=== PATIENT | male | born 1960 | race Caucasian/White ===

== ENCOUNTER 2020-01-18 08:21 | Emergency (ER) | payer OTHER, SELFPAY ==
[2020-01-18 08:32] VITALS: BP 156/76; PULSE 83; RESP 18; TEMP 36.9; O2SAT 100
--- NOTE | 2020-01-18 09:03 | ED.URI ---
HPI - URI/Sore Throat General Chief Complaint: Upper Respiratory Infection Stated Complaint: Congestion Time Seen by Provider: 01/18/20 09:03 Source: patient Mode of arrival: ambulatory Limitations: no limitations History of Present Illness HPI Narrative: 59-year-old male accompanied by spouse with complaints of sinus congestion, sinus pressure, cough, left eye swelling with redness and yellow drainage and itching also for the past 4 days with symptoms progressively increasing. Patient verbalizes history of chronic sinus problems and has had previous sinus surgery. Patient states that he has been taking Mucinex, Zytol, using visine to his eye and has been taking Ibuprofen and Tylenol for pain and feelings of fever and chills. Patient states that he has noted yellow sinus drainage and has had cough with expectoration of greenish mucous.Patient denies any shortness of breath or any wheezing with SAO2 100% on room air. MD elicited complaint: fever, cough, rhinorrhea, nasal congestion and sinus pain Pertinent past history: pneumonia, sinusitis and asthma Onset (ago): day(s) (4) Consistency: progressively worsening Severity: moderate Pain scale (0-10): 5 Description of mucous: yellow Able to tolerate fluids by mouth: Yes Exacerbating factors: exertion and supine positioning Relieving factors: nothing Associated symptoms: fever, chills, rhinorrhea, nasal congestion and cough Treatments prior to arrival: acetaminophen, ibuprofen and other (Zytol and Mucinex) Related Data Allergies Allergy/AdvReac Type Severity Reaction Status Date / Time No Known Allergies Allergy Verified 01/18/20 08:39 Review of Systems Review of Systems: Narrative: CONSTITUTIONAL:reports has felt feverish with chills, or sweats. EYES: Denies visual changes,positive for redness, or discharge swelling to upper eyelid with itching to his left eye. ENT:positiverhinorrhea, congestion, no sore throat, or otalgia. CARDIOVASCULAR: Denies chest pain, palpitations, or edema. RESPIRATORY: positive cough denies dyspnea. GASTROINTESTINAL: Denies abdominal pain, nausea, vomiting, or diarrhea. GENITOURINARY: Denies dysuria or hematuria. SKIN: Denies rash or itching. MUSCULOSKELETAL:History of chronic back pain, joint pain, or myalgia. NEUROLOGIC: Denies headache, numbness, or weakness. PSYCHIATRIC: Denies anxiety or depression. All systems reviewed & are unremarkable except as noted in HPI and below PMFSH Past Medical History Medical History (Updated 01/21/20 @ 16:16 by Kristine Correa NP) Asymmetrical hearing loss Chronic back pain Colon polyp Hypertension Pneumonia Unspecified asthma, uncomplicated Surgical History Surgical History (Updated 01/21/20 @ 16:07 by Kristine Correa NP) H/O sinus surgery History of appendectomy Hx of cholecystectomy Previous back surgery Family History Family History Mother Family history of diabetes mellitus in first degree relative Family history of coronary artery disease Social History Social History (Updated 01/18/20 @ 09:25 by Kristine Correa NP) Smoking status: Never smoker Alcohol intake: current Substance use type: painkillers Living arrangements: with family Gender identity (if verbalized by the patient): Male Comments At time of signature, agree with nursing past medical, social history. There is no relevant family history pertinent to the presenting complaint Exam Narrative: Exam Narrative: GENERAL: Well-appearing, well-nourished, and in no acute distress. HEAD: Normocephalic, atraumatic. EYES: PERRLA and EOMI. left eye conjunctiva red with swelling to left upper eylid, yellowish drainage from eye with crusting to lashes noted in am, no acute viual changes ENT: Nares red, edematous with yellowish rhinorrhea no epistaxis. Mucous membranes moist.TM's normal with good light reflex, throat mild redness with no lesion or tonsil swelling, post nasal
== END 2020-01-18 09:25 | disposition home or self-care (01) ==
PROVIDERS: Emergency Provider Registered Nurse; PCP Family Medicine
DX: J00 Acute nasopharyngitis [common cold] (principal); J01.90 Acute sinusitis, unspecified; H10.9 Unspecified conjunctivitis; I10 Essential (primary) hypertension; J45.909 Unspecified asthma, uncomplicated
CPT/HCPCS: 99213; G0463

== ENCOUNTER 2020-02-15 15:00 | Outpatient (CLI) | payer OTHER, SELFPAY ==
--- NOTE | ~2020-02-15 | XR_ITS ---
EXAMINATION: XR chest 2V DATE: 02/15/2020 15:22 INDICATION: Cough, history of asthma TECHNIQUE: PA and lateral views of the chest are obtained. COMPARISON: 03/05/2019 FINDINGS: The lungs are free of acute opacities. There is no pleural effusion or pneumothorax. The ca rdiomediastinal silhouette is normal. There is mild thoracic spondylosis. Surgical clips in the right upper quadrant are likely from prior cholecystectomy. IMPRESSION: 1. No acute cardiopulmonary abnormality. Reviewed, dictated and finalized at location A.
== END 2020-02-15 15:01 | disposition home or self-care (01) ==
LOC: ANHIMG 15:11
PROVIDERS: PCP Family Medicine; Visit Provider Physician Assistant
DX: R05 Cough (principal)
CPT/HCPCS: 71046

== ENCOUNTER 2020-05-22 00:28 | Outpatient (CLI) | payer OTHER, SELFPAY ==
[2020-05-22 18:55] LABS: SARS-CoV-2 RNA PCR Negative
== END 2020-05-22 00:29 | disposition home or self-care (01) ==
LOC: ANHCOVIDDT 00:28
PROVIDERS: PCP Family Medicine; Visit Provider Internal Medicine Cardiovascular Disease
DX: Z01.818 Encounter for other preprocedural examination (principal); Z11.59 Encounter for screening for other viral diseases
CPT/HCPCS: 87635; C9803; U0003

== ENCOUNTER 2020-05-24 05:46 | Day surgery (SDC) | payer OTHER, SELFPAY ==
[2020-05-24] VITALS (8 sets, daily range): BP systolic 110–151; BP diastolic 72–88; PULSE 56–82; RESP 12–18; TEMP 36.1–37; O2SAT 98–100; BMI 32.6
--- NOTE | 2020-05-24 09:15 | SUR.PREOP ---
ARRIVES AMBULATORY FROM OP SURGERY REGISTRATION TO [facility] FOR SCHEDULED LHC W/ DR. MORENO. A&OX 4, DENIES CP OR SOB ON ARRIVAL. ORIENTED TO ROOM, PLAN OF CARE, PROCEDURE. QUESTIONS ANSWERED. VS OBTAINED, IV STARTED, LABS SENT, CONSENT SIGNED, SKIN PREP COMPLETED, PULSES MARKED. WILL MONITOR.
[2020-05-24 10:20] LABS: Basophils Absolute Auto 0.1 K/mm3 (0.0-0.1); Basophils Percent Auto 1.1 % (0.2-1.2); Eosinophils Absolute Auto 0.2 K/mm3 (0-0.3); Eosinophils Percent Auto 2.4 % (0-4.4); Hematocrit 43.8 % (42.0-52.0); Hemoglobin 15.2 g/dL (14.0-18.0); Immature Granulocyte Absolute 0.04 K/mm3 (0.00-0.031); Immature Granulocyte Percent A 0.5 % (0-0.5); Lymphocytes Absolute Auto 1.84 K/mm3 (0.9-3.2); Lymphocytes Percent Auto 23.4 % (18.3-44.2); Mean Corpuscular HGB Conc 34.7 g/dl (32-36); Mean Corpuscular Hemoglobin 29.7 pg (26-34); Mean Corpuscular Volume 85.5 fl (80-100); Mean Platelet Volume 9.8 fl (7.4-10.4); Monocytes Absolute Auto 0.5 K/mm3 (0.1-0.6); Monocytes Percent Auto 6.9 % (2.6-8.5); Neutrophils Absolute Auto 5.2 K/mm3 (1.3-6.7); Neutrophils Percent Auto 65.7 % (45.5-73.1); Platelet Count Result 181 k/mm3 (150-375); Red Blood Count 5.12 M/mm3 (4.6-6.20); Red Cell Distribution Width 12.3 % (11.5-14.5); White Blood Count 7.9 K/mm3 (4.5-10.0)
[2020-05-24 10:31] LABS: Prothrombin Time 12.7 Seconds (11.1-14.7)
[2020-05-24 10:32] LABS: Blood Urea Nitrogen 15 mg/dL (9-20); Carbon Dioxide 28 mmol/L (22-30); Chloride 105 mmol/L (98-107); Estimated Glomerular Filt Rate > 60; Glucose 102 mg/dL (75-110); Potassium 3.9 mmol/L (3.4-5.0); Sodium 133 mmol/L (137-145)
--- NOTE | 2020-05-24 12:11 | WPDHPUPDATE1 ---
History and Physical Update Update Date/Time: 05/24/20 12:11 History and Physical has been reviewed, including an updated exam of the patient. There are NO changes in the patient's condition. Risks, benefits, and alternatives have been discussed and questions answered. Patient agrees to proceed with procedure.
--- NOTE | 2020-05-24 12:11 | WPDMODSED ---
Moderate Sedation Note-Pt Data Patient Data Allergies Allergy/AdvReac Type Severity Reaction Status Date / Time No Known Allergies Allergy Verified 05/24/20 10:38 Home Medications Medication Instructions Recorded Confirmed Type fluticasone furoate 200 1 inhalation INHALATION DAILY 02/03/20 05/23/20 History mcg-vilanterol 25 mcg/dose inhalation powder fluticasone propionate 50 1 spray NASAL BID #15.8 ml 03/06/20 05/23/20 Rx mcg/actuation nasal spray,suspension tramadol 50 mg tablet 50 mg PO Q8H PRN #30 tablet 05/14/20 05/23/20 Rx atorvastatin 10 mg tablet 10 mg PO DAILY #30 tablet 05/21/20 05/24/20 Rx ascorbic acid (vitamin C) 500 mg PO QAM 05/23/20 05/23/20 History aspirin 325 mg PO DAILY 05/23/20 05/23/20 History cyanocobalamin (vitamin B-12) 500 mcg PO DAILY 05/23/20 05/23/20 History metoprolol tartrate 12.5 mg PO BID 05/23/20 05/24/20 History multivitamin 1 cap PO DAILY 05/23/20 05/23/20 History nitroglycerin 0.4 mg SUBLINGUAL Q5M PRN 05/23/20 05/23/20 History Current Medications: Active Medications Sodium Chloride (Normal Saline Iv) 500 mls @ 100 mls/hr IV CONT .Q5H HEIDI Sedation/Anesthesia: No previous sedation/anesthesia problems (including family history). [facility] Past Medical History Medical History Asymmetrical hearing loss Chest pain Chronic back pain Colon polyp Cough Hypertension PND (post-nasal drip) Pneumonia Unspecified asthma, uncomplicated Surgical History Surgical History H/O sinus surgery History of appendectomy Hx of cholecystectomy Previous back surgery Family History Family History Mother Family history of diabetes mellitus in first degree relative Family history of coronary artery disease Social History Social History Smoking status: Never smoker Alcohol intake: current Substance use type: painkillers Gender identity (if verbalized by the patient): Male Mod Sed Physical Exam Physical Exam Pre Procedural Exam: Normal: Appearance, Eyes, Ears, Nose, Neck, Throat, Airway, Lungs, Heart Size, Heart Rate, Heart Rhythm, Neuro Exam, Abdomen, Liver, Kidneys, Spleen, Breasts, Genitalia, Extremities and Skin Hours since solid foods: 8 Hours since liquid intake: 8 Internal Medicine - PN: Obj Da Vital Signs Vital Signs: Vital Signs - 24 hr 05/24/20 10:00 Temperature 36.1 C L Pulse Rate 70 Respiratory Rate 16 Blood Pressure 151/80 H Pulse Oximetry 99 Meds/Results Medications: Active Medications Generic Name Dose Route Start Last Admin Trade Name Freq PRN Reason Stop Dose Admin Sodium Chloride 500 mls @ 100 mls/hr 05/24/20 06:00 Normal Saline Iv IV CONT .Q5H HEIDI Labs CBC & Chem 7: 05/24/20 10:06 05/24/20 10:06 Labs: Laboratory Results - last 24 hr 05/24/20 05/24/20 05/24/20 10:06 10:06 10:06 WBC 7.9 RBC 5.12 Hgb 15.2 Hct 43.8 MCV 85.5 MCH 29.7 MCHC 34.7 RDW 12.3 Plt Count 181 MPV 9.8 Immature Gran % (Auto) 0.5 Neut % (Auto) 65.7 Lymph % (Auto) 23.4 Motley % (Auto) 6.9 Eos % (Auto) 2.4 Baso % (Auto) 1.1 Lymph # (Auto) 1.84 Motley # (Auto) 0.5 Eos # (Auto) 0.2 Baso # (Auto) 0.1 Abs Immat Gran (auto) 0.04 H Absolute Neuts (auto) 5.2 Absolute Nucleated RBC 0.0 Nucleated RBC % 0.0 PT 12.7 INR 1.0 Sodium 133 L Potassium 3.9 Chloride 105 Carbon Dioxide 28 BUN 15 Creatinine 0.90 Estim Creat Clear Calc Not Reportable Estimated GFR > 60 Glucose 102 Calcium 9.0 ASA Classification/Sedation ASA Classification/Sedation ASA Class: I Emergent: No Risks: Risks, benefits and alternatives explained and patient/family accepted plan for sedation. Patient re-evaluated immed
--- NOTE | 2020-05-24 12:11 | WPDCARDPROC ---
Cardiac Cath Procedure Note Date of procedure:: 05/24/20 Performing physician:: Andrew Gilbert MD date of service 05/24/2020. Indication:: abnormal stress test Brief clinical history:: this is 59-year-old patient past medical history of hyperlipidemia was evaluated by Dr. Heredia for exertional chest pain. Underwent stress test that shows inferior, apical wall ischemia. He was brought into the laboratory specialist to define the coronary anatomy. Procedure Procedure performed:: 1-Moderate sedation that started at 11:04 am and ended at 1208 pm using 4mg of Versed and 100mcg fentanyl. The registered nurse was Benji Flores. 2-Selective left and right coronary angiogram. 3-Left heart catheterization with measurement of LVEDP and measurement of gradient across aortic valve. 4- LV angiogram. 5- IVUS of distal left main into the circumflex artery. 6- IFR of left main coronary artery into the left circumflex artery proper. also IFR of proximal obtuse marginal lesion. 7-Right common femoral arterial angiogram. 8-Deployment of 6 Congolese Angio-Seal. Sedation/Medication given:: Moderate sedation. Access site:: Right common femoral artery. Estimated blood loss:: 10cc Procedure note:: After informed consent patient was brought in to laboratory specialist with the was draped and prepped in usual manner. Moderate sedation was given and the right groin was infiltrated using 1% lidocaine. Five Congolese sheath was obtained using micropuncture needle and the modified Seldinger technique. Selective left coronary angiogram was done using JL4 catheter with the tip of the catheter placed in the left main coronary artery. Selective right coronary angiogram was done using JR4 catheter with the tip of the catheter placed to the right coronary artery. After that 5 Congolese pigtail catheter was advanced across the aortic valve into the left ventricle with measurement of LVEDP and measurement of gradient across aortic valve. LV angiogram was done. then after that the right femoral sheath was exchanged for 6 Congolese sheath. Six Congolese guide catheter CLS 3.5 was advanced engaging the left main. Then after that coronary luge wire was advanced to distal obtuse marginal. then IVUS catheter was not to the proximal portion of the obtuse marginal and then pulled back through the distal left main was done with measurements. Subsequently lose wire was removed. After that we went with a pressure wire that was zeroed outside the body and then advanced to the aortic root with normalization of pressures. after that the pressure wire was advanced 1st into the left circumflex artery proper and assessment of the distal left main was done reading was 0.95. then the pressure wire was retrieved and advanced to the distal obtuse marginal and measurement of ifr was significant at 0.83 . then pressure wire was retrieved.Right common femoral arterial angiogram was done. deployment 6 Congolese Angio-Seal Findings:: 1- left coronary artery is a large artery that divides into large LAD, large circumflex artery. distal left main has haziness, calcification and a lesion of about 40-50% distally. 2- left anterior descending artery is a large artery . has ostial 90% with calcification. followed by proximal stenosis about 70% and then 100% occlusion in the mid segment. there is a collateral coming from the left circumflex artery and supplying that mid portion of the LAD. mid to distal LAD is not visualized and is totally occluded. 3- left circumflex artery is a large artery. has minimal irregularities. proximally gives large OM1 branch that has proximal 70-80%. 4- right coronary artery is large artery and dominant, has proximal 20%, mid 40-50% and distal 30%. 5- LVEDP was 10 mmhg and no gradient across aortic valve. 6- LV angiogram shows no wall motion abnormality and estimated ejection fraction 65%. 7- opening arterial pressure was 118/68 and closing pressure was 137/76. 8- intravascular ultrasound of the distal left main shows minimal lumina
== END 2020-05-24 16:30 | disposition home or self-care (01) ==
PROVIDERS: PCP Family Medicine; Visit Provider Internal Medicine Cardiovascular Disease
PROC: 4A023N7 Measurement of Cardiac Sampling and Pressure, Left Heart, Percutaneous Approach (ICD-10-PCS; CPT 93452; principal; 2020-05-24 10:30)
PROC: 4A033BC Measurement of Arterial Pressure, Coronary, Percutaneous Approach (ICD-10-PCS; CPT 93571; 2020-05-24 10:30)
PROC: 4A033BC Measurement of Arterial Pressure, Coronary, Percutaneous Approach (ICD-10-PCS; CPT 75580; 2020-05-24 10:30)
DX: I25.10 Atherosclerotic heart disease of native coronary artery without angina pectoris (principal); R94.39 Abnormal result of other cardiovascular function study; E78.5 Hyperlipidemia, unspecified; I10 Essential (primary) hypertension; J45.909 Unspecified asthma, uncomplicated; G47.33 Obstructive sleep apnea (adult) (pediatric); Z82.49 Family history of ischemic heart disease and other diseases of the circulatory system; Z79.82 Long term (current) use of aspirin
CPT/HCPCS: 36415; 80048; 85025; 85610; 92978; 93458; 93571; 93572; A9270; C1753; C1760; C1769; C1887; C1894; G0269; J0583; J1644; J2250; J3010; J7040

== ENCOUNTER 2020-11-14 16:30 | Outpatient (RCR) | payer OTHER, SELFPAY ==
[2020-08-24 08:52] VITALS: PULSE 60
[2020-08-24 08:56] VITALS: BP 158/68; PULSE 59; RESP 16; TEMP 35.9; O2SAT 100
== END 2020-11-14 19:30 | disposition home or self-care (01) ==
LOC: ANHCPREHAB 16:30
PROVIDERS: PCP Family Medicine; Visit Provider Internal Medicine Cardiovascular Disease
DX: Z95.1 Presence of aortocoronary bypass graft (principal)
CPT/HCPCS: 93798

== ENCOUNTER 2021-03-05 08:46 | Emergency (ER) | payer OTHER, SELFPAY ==
--- NOTE | ~2021-03-05 | XR_ITS ---
EXAMINATION: XR knee RT 3V EXAM DATE: 03/05/2021 10:08 INDICATION: Initial encounter following injury, with pain of the right knee. Twisting injury. TECHNIQUE: Three projections of the right knee. Comparison is made to prior examination from 09/23/20 19. FINDINGS: No evidence osteochondral defect or joint body in the right knee joint. There are no acut e fractures or dislocations identified. There is no subcutaneous gas. There is small joint effusion . There is mild primary osteoarthritis. Couple of medially located surgical clips could be saphenous venous harvest. IMPRESSION: 1. XR knee RT 3V exam without acute osseous findings. 2. Small joint effusion. Reviewed, dictated and finalized at location A.
[2021-03-05 09:07] VITALS: BP 129/71; PULSE 65; RESP 14; TEMP 36.3; O2SAT 100
--- NOTE | 2021-03-05 09:40 | ED.GENADULT ---
HPI - General Adult General Chief complaint: Extremity Injury, Lower Stated complaint: knee pain Time Seen by Provider: 03/05/21 08:59 Source: patient and family Mode of arrival: ambulatory Limitations: no limitations History of Present Illness HPI narrative: Patient is a 60-year-old male who presents with medial right knee pain that began yesterday patient was sitting on the couch when he attempted to get up felt a pop in the knee is since had aching pain to the medial anterior aspect of the right knee denies similar occurrence in the past has appointment set up with his orthopedist presents in no distress denies other complaints Related Data Home Medications Medication Instructions Recorded Confirmed fluticasone furoate 200 1 inhalation INHALATION DAILY 02/03/20 08/24/20 mcg-vilanterol 25 mcg/dose inhalation powder ascorbic acid (vitamin C) 500 mg PO QAM 05/23/20 08/24/20 multivitamin 1 cap PO DAILY 05/23/20 08/24/20 nitroglycerin 0.4 mg SUBLINGUAL Q5M PRN 05/23/20 05/23/20 aspirin [Aspirin Childrens] 08/24/20 atorvastatin 40 mg PO HS 08/24/20 08/24/20 clopidogrel 75 mg PO DAILY 08/24/20 08/24/20 metoprolol tartrate 50 mg PO Q12H 08/24/20 08/24/20 lisinopril 10 mg tablet 10 mg PO DAILY 10/09/20 celecoxib mg 03/05/21 Allergies Allergy/AdvReac Type Severity Reaction Status Date / Time No Known Allergies Allergy Verified 10/09/20 13:07 Review of Systems Review of Systems: Narrative: CONSTITUTIONAL: Denies fever, chills, or sweats. EYES: Denies redness, or discharge. ENT: Denies rhinorrhea, congestion RESPIRATORY: Denies cough or dyspnea. SKIN: Denies bruising or swelling MUSCULOSKELETAL: Positive for right medial knee pain NEUROLOGIC: Denies numbness, or weakness. All systems reviewed & are unremarkable except as noted in HPI and below PMFSH Past Medical History Medical History Asymmetrical hearing loss CAD (coronary artery disease) Chest pain Chronic back pain Colon polyp Cough Hypertension PND (post-nasal drip) Pneumonia Unspecified asthma, uncomplicated Surgical History Surgical History H/O sinus surgery History of appendectomy Hx of cholecystectomy Previous back surgery S/P CABG x 2 Family History Family History Mother Family history of diabetes mellitus in first degree relative Family history of coronary artery disease Hypertension Father Colon cancer Social History Social History Smoking status: Never smoker 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 HEAD: Normocephalic, atraumatic. EYES: PERRLA and EOMI. ENT: Nares clear, no rhinorrhea or epistaxis. Mucous membranes moist. EXTREMITIES: Tenderness of the medial anterior aspect of the right knee no deformity noted SKIN: Warm, dry, no rash. NEURO: No focal deficits. Alert and oriented x3. Cranial nerves II through XII grossly intact. Neurovascularly intact. Capillary refill less than 2-second PSYCH: Normal mood and affect. Course Course Emergency Course: Patient in the room no distress will follow with orthopedic surgery felt appropriate for discharge home made aware of findings afebrile nontoxic-appearing no distress Vital Signs Vital signs: Vital Signs Temperature 97.4 F L 03/05/21 09:07 Pulse Rate 65 03/05/21 09:07 Respiratory Rate 14 03/05/21 09:07 Blood Pressure 129/71 03/05/21 09:07 Pulse Oximetry 100 03/05/21 09:07 Temperature 97.4 F L 03/05/21 09:07 Pulse Rate 65 03/05/21 09:07 Respiratory Rate 14 03/05/21 0
[2021-03-05 11:07] VITALS: BP 125/75; PULSE 54; RESP 14; O2SAT 100
== END 2021-03-05 11:10 | disposition home or self-care (01) ==
PROVIDERS: Emergency Provider Emergency Medicine; PCP Family Medicine
DX: M25.561 Pain in right knee (principal); I25.10 Atherosclerotic heart disease of native coronary artery without angina pectoris; I10 Essential (primary) hypertension; J45.909 Unspecified asthma, uncomplicated
CPT/HCPCS: 73562; 99283

== ENCOUNTER 2021-04-02 10:08 | Outpatient (CLI) | payer OTHER, SELFPAY ==
--- NOTE | 2021-04-02 | ECG_ITS ---
Measurements Intervals [place] Rate: 63 P: 58 UT: 166 QRS: -21 QRSD: 100 T: 23 QT: 418 QTc: 431 Interpretive Statements SINUS RHYTHM BORDERLINE R WAVE PROGRESSION, ANTERIOR LEADS INFERIOR INFARCT, AGE INDETERMINATE ABNORMAL ECG Electronically Signed On 04-02-2021 11:07:02 CDT by Richard Scott D.O.
[2021-04-02 10:47] LABS: Anion Gap 6 mmol/L (8-16); Blood Urea Nitrogen 12 mg/dL (9-20); Calcium 9.2 mg/dL (8.4-10.2); Carbon Dioxide 30 mmol/L (22-30); Chloride 105 mmol/L (98-107); Estimated Glomerular Filt Rate > 60; Glucose 102 mg/dL (75-110); Potassium 4.2 mmol/L (3.4-5.0); Sodium 141 mmol/L (137-145)
== END 2021-04-02 10:09 | disposition home or self-care (01) ==
PROVIDERS: PCP Family Medicine; Visit Provider Orthopaedic Surgery
DX: Z01.818 Encounter for other preprocedural examination (principal); R94.31 Abnormal electrocardiogram [ECG] [EKG]
CPT/HCPCS: 36415; 80048; 93005

== ENCOUNTER 2021-10-22 11:44 | Emergency (ER) | payer OTHER, SELFPAY ==
--- NOTE | ~2021-10-22 | CT_ITS ---
EXAMINATION: CT abdomen pelvis w con DATE: 10/22/2021 12:50 INDICATION: Low abdominal pain. Diarrhea. Fever. TECHNIQUE: Computed tomography (CT) of the abdomen and pelvis was performed with 100 mL Omnipaque 350 intravenous contrast. Automated exposure control and iterative reconstruction technique were employe d. The dose-length product was 1072.70 mGy-cm. COMPARISON: CT abdomen and pelvis 02/24/2013 FINDINGS: The visualized portions of the lung bases demonstrate patchy groundglass and airspace opaci ties with volume loss bilaterally. No pleural effusion. The heart size is normal. There are coronary artery calcifications. No pericardial effusion. There are changes of coronary artery bypass grafting. The liver and spleen are normal. There are changes of cholecystectomy. The pancreas, adrenal glands, and right kidney are normal. There is a 2.2 cm hemorrhagic cyst in left kidney. There is an umbilica l hernia containing fat. There is liquid stool in the colon suggestive of diarrhea. The appendix is n ot visualized. There is chronic fat stranding in the small bowel mesentery. There is prominent fat in the right inguinal canal that may be a hernia. There is a left inguinal hernia containing fat. There are no pathologically enlarged lymph nodes. There is no free intraperitoneal fluid. There is moderat e thoracic and lumbar spondylosis. IMPRESSION: 1. Diffuse lung disease suspicious for atypical pneumonia such as COVID-19 pneumonia. 2. Umbilical hernia containing fat. 3. Left inguinal hernia containing fat. Prominent fat in right inguinal canal that may be a hernia. 4. Widespread fat stranding at the root of the small bowel mesentery again seen. The differential rafael gnosis includes mesenteric panniculitis and edema. Reviewed, dictated and finalized at location B. [employer] IMPRESSION: 1. Diffuse lung disease suspicious for atypical pneumonia such as COVID-19 pneu monia. 2. Umbilical hernia containing fat. 3. Left inguinal hernia containing fat. Prominent fat in right inguinal canal t hat may be a hernia. 4. Widespread fat stranding at the root of the small bowel mesentery again seen . The differential diagnosis includes mesenteric panniculitis and edema.
[2021-10-22 11:50] VITALS: BP 129/84; PULSE 90; RESP 23; TEMP 36.8; O2SAT 98
--- NOTE | 2021-10-22 12:02 | ED.ABDPAIN ---
HPI - Abdominal Pain General Chief Complaint: Abdominal Pain Stated Complaint: I got a problem down in lower abd Time Seen by Provider: 10/22/21 12:01 Source: patient Mode of arrival: ambulatory Limitations: no limitations History of Present Illness HPI narrative: Patient is a 61-year-old male complaining of left lower abdominal pain I think it is my hernia , intermittent, started few months ago but worse the past 2 weeks when he started coughing. Patient states that he just got over feeling sick described as cough, body aches, and diarrhea 2 weeks ago and is now better. Patient denies any chest pain, shortness of breath, nausea, vomiting, diarrhea, urinary symptoms, fever or chills. Pain scale (0-10): 6 Quality: dull Radiation: none Migration to: no migration Related Data Home Medications Medication Instructions Recorded Confirmed fluticasone furoate 200 1 inhalation INHALATION DAILY 02/03/20 07/01/21 mcg-vilanterol 25 mcg/dose inhalation powder ascorbic acid (vitamin C) 500 mg PO QAM 05/23/20 07/01/21 multivitamin 1 cap PO DAILY 05/23/20 07/01/21 nitroglycerin 0.4 mg SUBLINGUAL Q5M PRN 05/23/20 07/01/21 aspirin [Aspirin Childrens] 08/24/20 07/01/21 atorvastatin 40 mg PO HS 08/24/20 07/01/21 clopidogrel 75 mg PO DAILY 08/24/20 07/01/21 metoprolol tartrate 50 mg PO Q12H 08/24/20 07/01/21 lisinopril 10 mg tablet 10 mg PO DAILY 10/09/20 07/01/21 celecoxib mg 03/05/21 07/01/21 Allergies Allergy/AdvReac Type Severity Reaction Status Date / Time No Known Allergies Allergy Verified 04/30/21 15:05 Review of Systems Review of Systems: All systems reviewed & are unremarkable except as noted in HPI and below Constitutional: Constitutional: Denies body ache(s), Denies chills, Denies excessive sweating, Denies fatigue, Denies fever(s), Denies headache(s), Denies lethargy, Denies malaise, Denies weakness and Denies weight loss Eyes: Eyes: Denies blurry vision, Denies change in vision and Denies loss of vision ENT: Denies dizziness, Denies ear discharge, Denies headache(s), Denies lip swelling, Denies epistaxis, Denies nasal congestion, Denies neck pain, Denies throat swelling and Denies tongue swelling Cardiovascular: Cardiovascular: Denies chest pain, Denies chest pain at rest, Denies chest pain with activity, Denies diaphoresis, Denies rapid heart rate, Denies edema, Denies irregular heart rhythm, Denies lightheadedness, Denies palpitations, Denies dyspnea and Denies dyspnea on exertion Respiratory: Respiratory: Denies chest congestion, Denies cough, Denies hemoptysis, Denies dyspnea and Denies dyspnea on exertion Gastrointestinal: Gastrointestinal: Denies melena, Denies hematochezia, Denies diarrhea, Denies nausea, Denies vomiting and Denies hematemesis Musculoskeletal: Musculoskeletal: Denies abnormal gait, Denies deformity, Denies joint swelling, Denies limited range of motion, Denies neck pain and Denies numbness Neurologic: Denies Abnormal speech present, Denies abnormal gait, Denies confusion, Denies dizziness, Denies headache(s), Denies focal weakness, Denies loss of vision, Denies numbness, Denies Other visual disturbances, Denies Sensory deficit (Neuro) and Denies weakness Psychiatric: Psychiatric: Denies confusion, Denies depression, Denies auditory hallucinations, Denies homicidal ideation and Denies suicidal ideation Endocrine: Endocrine: Denies cold intolerance, Denies excessive sweating, Denies fatigue, Denies heat intolerance and Denies palpitations Hematologic/Lymphatic: Hematologic/Lymphatic: Denies easy bleeding and Denies easy bruising Allergic/Immunologic: Allergic/Immunologic: Denies lip swelling, Denies throat swelling and Denies tongue swelling PMFSH Past Medical History Medical History Asymmetrical hearing loss CAD (coronary artery disease) Chest pain Chronic back pain Colon polyp Cough Hypertension PND (post-nasal drip) Pneumonia Unspecifie
[2021-10-22 12:09] LABS: Basophils Percent Auto 0.3 % (0.2-1.2); Eosinophils Percent Auto 0.2 % (0-4.4); Hematocrit 46.9 % (42.0-52.0); Hemoglobin 16.5 g/dL (14.0-18.0); Immature Granulocyte Absolute 0.13 K/mm3 (0.00-0.031); Lymphocytes Absolute Auto 1.72 K/mm3 (0.9-3.2); Lymphocytes Percent Auto 13.1 % (18.3-44.2); Mean Corpuscular HGB Conc 35.2 g/dl (32-36); Mean Corpuscular Hemoglobin 29.5 pg (26-34); Mean Corpuscular Volume 83.9 fl (80-100); Mean Platelet Volume 9.7 fl (7.4-10.4); Monocytes Absolute Auto 1.9 K/mm3 (0.1-0.6); Monocytes Percent Auto 14.6 % (2.6-8.5); Neutrophils Absolute Auto 9.3 K/mm3 (1.3-6.7); Neutrophils Percent Auto 70.8 % (45.5-73.1); Platelet Count Result 310 k/mm3 (150-375); Red Blood Count 5.59 M/mm3 (4.6-6.20); Red Cell Distribution Width 12.1 % (11.5-14.5); White Blood Count 13.1 K/mm3 (4.5-10.0)
[2021-10-22 12:16] LABS: Alanine Aminotransferase 72 U/L (4-50); Albumin Level 4.3 g/dL (3.5-5.1); Alkaline Phosphatase 74 U/L (38-126); Anion Gap 12 mmol/L (8-16); Aspartate Amino Transferase 57 U/L (17-59); Bilirubin,Total 0.9 mg/dL (0.2-1.3); Blood Urea Nitrogen 20 mg/dL (9-20); Carbon Dioxide 29 mmol/L (22-30); Chloride 88 mmol/L (98-107); Estimated CRCL calculation 82 ml/min; Estimated Glomerular Filt Rate > 60; Glucose 116 mg/dL (65-110); Lipase 106 U/L (23-300); Sodium 129 mmol/L (137-145)
[2021-10-22] MEDS: SODIUM CHLORIDE 0.9% IV 1,000 ML 999 ML IV CONT (12:16)
--- NOTE | 2021-10-22 12:28 | PC.NURSE ---
Patient attempting to provide urine specimen at this time.
[2021-10-22] MEDS: POTASSIUM CHLORIDE 20 MEQ TABLET 40 MEQ PO (13:45)
[2021-10-22 14:08] LABS: Add Urine Microscopic? NO; Appearance Urine Clear (Clear); Bilirubin Urine Negative (Negative); Blood Urine Negative (Negative); Color Urine Yellow (Yellow); Glucose Urine UA Negative (Negative); Ketones Urine Negative (Negative); Leukocyte Esterase Ur Negative LEU/UL (Negative); Nitrate Urine Negative (Negative); Protein Urine Negative (Negative); Specific Grav Ur 1.028 (1.001-1.035); Urobilinogen Urine Negative mg/dL (<2.0)
[2021-10-22] MEDS: KETOROLAC 30 MG/ML VIAL (*BKC) IV PUSH (15:07)
[2021-10-22] MEDS: HYDROcodone/acetaminophen (*CRX) 5-325 MG TABLET 1 TAB PO (15:08)
[2021-10-22 15:26] VITALS: BP 134/87; PULSE 99; RESP 20; O2SAT 98
== END 2021-10-22 15:15 | disposition home or self-care (01) ==
PROVIDERS: Physician Assistant; Emergency Provider Emergency Medicine; PCP Family Medicine
DX: K40.90 Unilateral inguinal hernia, without obstruction or gangrene, not specified as recurrent (principal); E87.6 Hypokalemia; E87.1 Hypo-osmolality and hyponatremia; I10 Essential (primary) hypertension; I25.10 Atherosclerotic heart disease of native coronary artery without angina pectoris; J45.909 Unspecified asthma, uncomplicated
CPT/HCPCS: 36415; 74177; 80053; 81003; 83690; 85025; 96361; 96374; 99284; A9270; J1885; J7030; Q9967

== ENCOUNTER 2021-11-20 09:22 | Outpatient (CLI) | payer OTHER, SELFPAY | END 2021-11-20 09:23 | disposition home or self-care (01) | PROVIDERS: PCP Family Medicine; Visit Provider Surgery | DX: Z01.812 Encounter for preprocedural laboratory examination (principal); K40.90 Unilateral inguinal hernia, without obstruction or gangrene, not specified as recurrent | CPT/HCPCS: 36415; 86850; 86900; 86901 ==

== ENCOUNTER 2021-11-26 00:27 | Day surgery (SDC) | payer OTHER, SELFPAY ==
[2021-11-19 09:11] VITALS: BMI 33.0
--- NOTE | 2021-11-19 09:33 | PC.NURSE ---
Report to the Outpatient Waiting Room, entrance under the green pavilion located off [facility], at time 6:00 on date 11/26/21. OR Time: 7:30. - You and your visitor will be asked a series of questions to screen for COVID 19 for your protection. - A mask is required within the hospital. - Only one visitor is allowed at this time. Patient visitors will be guided where to wait when not with patient. Preoperative COVID Testing Requirements: No COVID Test needed if: (proof is required; if not received patient will have Rapid Test prior to entry) - Patient has received COVID Vaccine at least 14 days prior to procedure date or - Patient has positive COVID test result within last 90 days of surgery date. COVID Test needed if above criteria is not met If not COVID vaccinated a COVID test must be conducted within 72 hours of surgery and patient is asked to isolate self from time of testing until procedure. You will go to the [facility] for your COVID testing. The [facility] is located at the corner of [address] [facility]. You will only be called if COVID results are positive and your surgeon may reschedule your elective surgery date. Patients may have clear liquids (water, carbonated beverages, clear teas, apple juice) until 3 hours prior to surgery (4:30) with a maximum of 20 ounces. - No food from midnight until time of surgery - Infants may have breast milk until 4 hours before surgery, formula 6 hours prior to surgery. - Children will be allowed to drink immediately following surgery. If applicable, please bring a bottle or sippy cup to assist with drinking. Juice, water, soda, and popsicles are readily available. For infants on formula, please bring formula the day of surgery. Pacifiers are allowed. Take the following medications with a SIP of water the morning of surgery: METOPROLOL, DULERA Medications to discontinue per physician: N/A Date to take last dose: N/A Please no make-up, nail vietnamese, hairspray, perfume, deodorant, or body powder the day of surgery. No jewelry (including any body piercings) or valuables the day of surgery, leave them at home. Please take a shower or bath the night before, or the morning of, surgery with an antibacterial soap. Wear comfortable, loose fitting clothing. HIBICLENS SHOWER - Jewelry must be removed prior to entering the operating room. Rings and piercings that are not removed may be cut off. - The hospital will not accept responsibility for valuables. - Please leave all valuables, including medications, at home the day of surgery. If you are going home after surgery, a licensed auto haulaway driver must drive you home. - NO public transportation without another adult. - We recommend that an adult stay with you for 24 hours following discharge. - We also recommend that you do not drive, make important decision, drink alcoholic beverages, or take any drugs that were not prescribed by your health care provider for at least 24 hours after your discharge time. Follow any additional instructions given to you from your surgeon. Telephone instructions given to JASPREET ODEN and asked if any additional questions and then verbalized understanding. Patient advised to call surgeon office or pre surgery nurse liaison [phone] if any additional questions.
[2021-11-26] VITALS (9 sets, daily range): BP systolic 104–142; BP diastolic 68–85; PULSE 62–96; RESP 16–20; TEMP 36.2–36.3; O2SAT 99–100
[2021-11-26] MEDS: LACTATED RINGERS 1,000 ML 30 ML IV CONT ×2 (06:45→09:28)
--- NOTE | 2021-11-26 06:48 | P.PNAN_ITS ---
Anes - Initial Pre Proc Eval Procedure: Operation Date: 11/26/21 07:30 Proposed Procedures p Robotic Assisted Left Inguinal Hernia Repair with Mesh - Agueda Cox MD Date/Time: 11/26/21 06:48 Surgeon: Agueda Cox MD Pre Op Diagnosis: left inguinal hernia Patient Data Age: 61 Gender: M Height: 1.75 m Weight: 101.6 kg Allergies Allergy/AdvReac Type Severity Reaction Status Date / Time No Known Allergies Allergy Verified 11/19/21 09:08 Home Medications Medication Instructions Recorded Confirmed Type aspirin [Aspirin Childrens] 81 mg PO DAILY 08/24/20 11/19/21 History atorvastatin 40 mg PO HS 08/24/20 11/19/21 History lisinopril 10 mg tablet 10 mg PO DAILY 10/09/20 11/19/21 History metoprolol tartrate 50 mg tablet 50 mg PO BID 11/05/21 11/19/21 History mometasone-formoterol HFA 200 2 puff INHALATION BID 11/05/21 11/19/21 History mcg-5 mcg/actuation aerosol inhaler Patient hx anesthesia problems: none Family hx anesthesia problems: none Results Review: All pre-operative results and documents have been reviewed as part of the pre-operative evaluation. [facility] Past Medical History Medical History Arthritis Asthma Asymmetrical hearing loss CAD (coronary artery disease) Chest pain Chronic back pain Colon polyp Cough Hypertension PND (post-nasal drip) Pneumonia Unspecified asthma, uncomplicated Surgical History Surgical History H/O sinus surgery History of appendectomy Hx of cholecystectomy Previous back surgery S/P CABG x 2 Family History Family History Mother Family history of diabetes mellitus in first degree relative Family history of coronary artery disease Hypertension Father Colon cancer Heart disease Social History Social History Smoking status: Never smoker 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: 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, 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) Alcohol intake: current Alcohol use details: A SHOT OF WHISKEY ON WEEKENDS Substance use: current Substance use type: marijuana Other substance usage details: KENYON 11/11/21 Living arrangements: with family Gender identity (if verbalized by the patient): Male Sexual Orientation (if Verbalized by the Patient): Straight or Heterosexual Spiritual care concerns: No Anes - Eval Final PreProcedure Day of Procedure 11/26/21 06:48 Patient weight: obese Heart: regular rate and rhythm Lungs: clear to auscultation Airway: Mallampati scale class II Neurological: alert and oriented Last oral intake: >/= 8 hours ASA classification: III Emergent: no Anesthetic plan: proceed Anesthesia type and monitoring: general GIVS and standard monitoring Results Review: All pre-operative results and documents have been reviewed as part of the pre-operative evaluation. Informed Consent: The patient's anesthetic plan and its attendant risks and benefits were discussed with the patient/family/POA. Questions were solicited and answers provided to the satisfaction of the patient/family/POA.
[2021-11-26] MEDS: ACETAMINOPHEN 500 MG TABLET 1000 MG PO (07:05)
[2021-11-26] MEDS: KETOROLAC 15 MG/ML VIAL (*BKC) IV PUSH (07:06)
--- NOTE | 2021-11-26 07:24 | WPDHPUPDATE1 ---
History and Physical Update Update Date/Time: 11/26/21 07:24 History and Physical has been reviewed, including an updated exam of the patient. There are NO changes in the patient's condition. Risks, benefits, and alternatives have been discussed and questions answered. Patient agrees to proceed with procedure.
[2021-11-26] MEDS: ceFAZolin 2 GM/D5W 50 ML 2 GM/50 ML BAG IVPB (07:29)
[2021-11-26] MEDS: BUPIVACAINE/EPINEPHRINE 0.25% 10 ML VIAL 30 ML INFILTRATE (07:45)
--- NOTE | 2021-11-26 08:21 | SUR.OPER ---
patient voided immediately prior to arriving to OR in pre op/verified L Alonzo LOGAN
--- NOTE | 2021-11-26 08:48 | SUR.OPER ---
3D Max MID Anatomical Mesh to sterile field and placed via robot port. Mesh dipped in NS prior to insertion. exp [id number] lot [id number],
--- NOTE | 2021-11-26 09:45 | W.PM.PROC2 ---
Procedure Note - Detailed Date of Procedure 11/26/21 Pre-op Diagnosis incarcerated left inguinal hernia Post-op Diagnosis same Procedure Performed robotic assisted left inguinal hernia repair with mesh Surgeon Agueda Cox MD Anesthesia general Indications 61 y/o M c LIH incarcerated c preperitoneal fat and sigmoid colon Findings indirect left inguinal hernia Description of Procedure Patient was brought into the operating room and placed in the supine position. After adequate induction of general anesthesia, the patient was prepped and draped in normal sterile fashion. A time-out was then done to verify the patient's identity, as well as the procedure being performed. I began by making a 8 mm incision in the supraumbilical region, a Veress needle was then placed into the peritoneal cavity. CO2 gas was then insufflated and after adequate pneumoperitoneum was achieved, the Veress needle was removed. I then placed an 8 mm trocar through this incision. I then placed the endoscope through this trocar site and under direct visualization placed 2 further 8 mm ports in the right and left mid abdomen. The [employer] robot was then docked to the 3 trocar sites. I then scrubbed out and went to the robotic console. There was noted to be some adhesions in the lower midline and these were taken down sharply with cautery. Upon examining the pelvis, it was noted that the patient had a moderate sized left inguinal hernia. There was noted incarcerated preperitoneal fat and sigmoid colon. This was all reduced with gentle traction. The right side was examined and no hernia defect was noted. I began by making a preperitoneal flap approximately 6 cm superior to the defect. This flap was carried medially past the umbilical ligaments and laterally to the transversalis. It then began dissection of my medial compartment taking this down to the pubic tubercle. I then began the lateral dissection taking this down to the transversalis fascia. Once these compartments were achieved, I began dissection around the cord structures. A moderate sized indirect hernia was noted at this point. Using careful dissection, was able to reduce indirect hernia sac off the cord structures. Once this was adequately done, I went ahead and placed a large piece of 3D Max mesh into the abdominal cavity. The mesh was carefully positioned, centering the center of the mesh over the indirect defect. Once this was done, was very satisfied with our repair. Using 3-0 Vicryl sutures, I tacked the mesh medially to Sonny's ligament. Two lateral sutures were placed from the mesh to the transversalis fascia. I then closed the peritoneal flap with a running 2.0 V Lock suture. The abdomen was then desufflated, and all ports were removed. All incisions were then closed with the 4.0 monocryl suture. Dermabond was placed on each wound. The patient tolerated the procedure well, was extubated in the operating room postoperatively, and will now be transferred to the recovery room in stable condition. Implants large 3DMax mesh Estimated Blood Loss 10 Drains No Packing No Pathology none sent Complications No immediate complications Condition stable Disposition PACU
[2021-11-26] MEDS: fentaNYL CITRATE INJ (*CRX) 100 MCG/2 ML VIAL 25 MCG IV PUSH ×4 (09:59→10:13)
--- NOTE | 2021-11-26 10:11 | SUR.PHASEI ---
PT AWAKE AND ALERT. VERY TALKATIVE. STATES PAIN MODERATE AT 5/10. TOLERABLE
[2021-11-26] MEDS: oxyCODONE HCL (*CRX) 5 MG TAB IR PO (10:50)
== END 2021-11-26 11:50 | disposition home or self-care (01) ==
PROVIDERS: PCP Family Medicine; Visit Provider Surgery
PROC: 8E0Y4CZ Robotic Assisted Procedure of Lower Extremity, Percutaneous Endoscopic Approach (ICD-10-PCS; CPT 49650; principal; 2021-11-26 07:30)
DX: K40.30 Unilateral inguinal hernia, with obstruction, without gangrene, not specified as recurrent (principal); I25.10 Atherosclerotic heart disease of native coronary artery without angina pectoris; I10 Essential (primary) hypertension; J45.909 Unspecified asthma, uncomplicated; Z79.51 Long term (current) use of inhaled steroids; Z79.82 Long term (current) use of aspirin; Z95.1 Presence of aortocoronary bypass graft; F12.90 Cannabis use, unspecified, uncomplicated; E66.9 Obesity, unspecified; Z68.33 Body mass index [BMI] 33.0-33.9, adult
CPT/HCPCS: 49650; S2900; 36415; 86850; 86900; 86901; A9270; J0330; J0690; J1100; J1885; J2405; J2704; J2710; J3010; J7030; J7120

== ENCOUNTER → 2021-12-13 07:45 | Outpatient (CLI) | payer OTHER, SELFPAY ==
[2021-12-14 18:18] LABS: SARS-CoV-2 RNA PCR Negative
== END ==
PROVIDERS: PCP Family Medicine; Visit Provider Family Medicine
DX: R05.9 Cough, unspecified (principal); Z20.822 Contact with and (suspected) exposure to COVID-19
CPT/HCPCS: C9803; U0003; U0005

== ENCOUNTER 2023-05-19 05:22 | Emergency (ER) | payer OTHER, SELFPAY ==
[2023-05-19] VITALS (15 sets, daily range): BP systolic 131–163; BP diastolic 73–100; PULSE 69–89; RESP 13–20; TEMP 36.6; O2SAT 95–99
--- NOTE | ~2023-05-19 | XR_ITS ---
Right Shoulder Technique: AP and scapular Y views were obtained. Clinical History: Pain Findings: No fracture or dislocation is seen. Osseous alignment is anatomic. The glenohumeral and acr omioclavicular joint spaces are preserved. Soft tissues are unremarkable. Impression: Unremarkable right shoulder radiographs. Reviewed, dictated and finalized at [facility]. Impression: Unremarkable right shoulder radiographs.
--- NOTE | ~2023-05-19 | XR_ITS ---
Clinical Indication: Cough, fever An lateral views of the chest: Comparison: 02/15/2020 Findings: The lungs are clear, without evidence of focal consolidation or pleural effusion. Cardiome diastinal silhouette is within normal limits. Bones and soft tissues are unremarkable. Impression: Normal chest. Reviewed, dictated and finalized at [facility]. Impression: Normal chest.
--- NOTE | ~2023-05-19 | XR_ITS ---
Right Humerus Technique: AP and lateral views were obtained. Clinical History: Pain Findings: No fracture or dislocation is seen. Osseous alignment is anatomic. Visualized joint spaces are grossly preserved. Soft tissues are unremarkable. Impression: Unremarkable examination. No fracture or dislocation. Reviewed, dictated and finalized at location . Impression: Unremarkable examination. No fracture or dislocation.
[2023-05-19] MEDS: oxyCODONE/ACETAMINOPHEN (*CRX) 5-325 MG TABLET 1 TABLET PO (06:23)
--- NOTE | 2023-05-19 06:27 | ED.GENADULT ---
HPI - General Adult General Chief complaint: Unspecified <Jigar Arreola MD - Last Filed: 05/19/23 08:10> Stated complaint: fever, right arm pain <Jigar Arreola MD - Last Filed: 05/19/23 08:10> Time Seen by Provider: 05/19/23 05:29 <Jigar Arreola MD - Last Filed: 05/19/23 08:10> History of Present Illness HPI narrative: This is a 62-year-old male with past history of hypertension and hyperlipidemia, who presents emergency department complaining of right arm pain and fever. The patient states 2 days ago, he developed fever of 102. This was associated with cough productive of mucus. He also noticed right arm pain, described as sharp, rated 8/10 and associated with pain on movement of the arm. He denies any recent trauma, recent travel, known break in the skin or sick contacts <Jigar Arreola MD - Last Filed: 05/19/23 08:10> Related Data Home medications: Home Medications Medication Instructions Recorded Confirmed aspirin 81 mg chewable tablet 81 mg PO DAILY 08/24/20 12/15/22 (Aspirin Childrens) atorvastatin 40 mg tablet 40 mg PO HS 08/24/20 12/15/22 metoprolol tartrate 50 mg tablet 50 mg PO BID 11/05/21 12/15/22 mometasone-formoterol HFA 200 2 puff inhalation BID 11/05/21 12/15/22 mcg-5 mcg/actuation aerosol inhaler (Dulera) <Jigar Arreola MD - Last Filed: 05/19/23 08:10> Allergies/adverse reactions: Allergies Allergy/AdvReac Type Severity Reaction Status Date / Time No Known Allergies Allergy Verified 01/26/23 16:19 <Jigar Arreola MD - Last Filed: 05/19/23 08:10> Review of Systems Review of Systems: CONSTITUTIONAL: Fever denies chills, or sweats. CARDIOVASCULAR: Denies chest pain, palpitations, or edema. RESPIRATORY: Cough productive of nonbloody sputum denies cough or dyspnea. GASTROINTESTINAL: Denies abdominal pain, nausea, vomiting, or diarrhea. GENITOURINARY: Denies dysuria or hematuria. SKIN: Denies rash or itching. MUSCULOSKELETAL: Right arm and shoulder pain denies back pain, or myalgia. NEUROLOGIC: Mild headache denies numbness, dizziness, or weakness. PSYCHIATRIC: Denies anxiety or depression. <Jigar Arreola MD - Last Filed: 05/19/23 08:10> [facility] Past Medical History Medical History: Medical History Arthritis Asthma Asymmetrical hearing loss CAD (coronary artery disease) Chest pain Chronic back pain Colon polyp Cough Hypertension PND (post-nasal drip) Pneumonia Unspecified asthma, uncomplicated <Jigar Arreola MD - Last Filed: 05/19/23 08:10> Surgical History Surgical History: Surgical History H/O left inguinal hernia repair robotic assisted left inguinal hernia repair with mesh 11/26/21 H/O sinus surgery History of appendectomy Hx of cholecystectomy Previous back surgery S/P CABG x 2 <Jigar Arreola MD - Last Filed: 05/19/23 08:10> Family History Family History: Family History Mother Family history of diabetes mellitus in first degree relative Family history of coronary artery disease Hypertension Father Colon cancer Heart disease <Jigar Arreola MD - Last Filed: 05/19/23 08:10> Social History Social History: Social History Smoking status: Never smoker 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
[2023-05-19 06:29] LABS: Basophils Absolute Auto 0.1 K/mm3 (0.0-0.1); Basophils Percent Auto 0.3 % (0.2-1.2); Eosinophils Percent Auto 0.2 % (0-4.4); Hematocrit 40.2 % (42.0-52.0); Hemoglobin 13.6 g/dL (14.0-18.0); Immature Granulocyte Absolute 0.14 K/mm3 (0.00-0.031); Immature Granulocyte Percent A 0.8 % (0-0.5); Lymphocytes Absolute Auto 1.11 K/mm3 (0.9-3.2); Mean Corpuscular HGB Conc 33.8 g/dl (32-36); Mean Corpuscular Hemoglobin 29.8 pg (26-34); Mean Platelet Volume 9.6 fl (7.4-10.4); Monocytes Absolute Auto 0.9 K/mm3 (0.1-0.6); Monocytes Percent Auto 4.9 % (2.6-8.5); Neutrophils Absolute Auto 16.3 K/mm3 (1.3-6.7); Neutrophils Percent Auto 87.8 % (45.5-73.1); Platelet Count Result 176 k/mm3 (150-375); Red Blood Count 4.57 M/mm3 (4.6-6.20); Red Cell Distribution Width 13.1 % (11.5-14.5); White Blood Count 18.5 K/mm3 (4.5-10.0)
[2023-05-19 06:48] LABS: Alanine Aminotransferase 198 U/L (6-50); Albumin Level 4.1 g/dL (3.5-5.1); Alkaline Phosphatase 153 U/L (38-126); Anion Gap 7 mmol/L (8-16); Aspartate Amino Transferase 337 U/L (17-59); Bilirubin,Total 1.9 mg/dL (0.2-1.3); Blood Urea Nitrogen 12 mg/dL (9-20); Calcium 8.4 mg/dL (8.4-10.2); Carbon Dioxide 32 mmol/L (22-30); Chloride 97 mmol/L (98-107); Estimated CRCL calculation 91 ml/min; Estimated Glomerular Filt Rate > 60; Glucose 123 mg/dL (65-110); Potassium 3.3 mmol/L (3.4-5.0); Sodium 136 mmol/L (137-145)
--- NOTE | 2023-05-19 07:49 | PC.NURSE ---
Dr. Arreola at bedside performing right shoulder arthrocentesis
[2023-05-19 09:06] LABS: Acetaminophen < 10 ug/mL (10-30)
== END 2023-05-19 10:50 | disposition home or self-care (01) ==
PROVIDERS: Preventive Medicine Aerospace Medicine; Emergency Provider Emergency Medicine; PCP Family Medicine
DX: M79.601 Pain in right arm (principal); M25.511 Pain in right shoulder; I25.10 Atherosclerotic heart disease of native coronary artery without angina pectoris; I10 Essential (primary) hypertension; J45.909 Unspecified asthma, uncomplicated; M19.90 Unspecified osteoarthritis, unspecified site; Z95.1 Presence of aortocoronary bypass graft; Z86.010 Personal history of colon polyps; Z87.01 Personal history of pneumonia (recurrent); Z90.49 Acquired absence of other specified parts of digestive tract; Z77.22 Contact with and (suspected) exposure to environmental tobacco smoke (acute) (chronic)
CPT/HCPCS: 20610; 23650; 36415; 71046; 73030; 73060; 80053; 80307; 85025; 99285; A4565; A9270

== ENCOUNTER 2023-05-21 04:34 | Inpatient (IN) | payer OTHER, SELFPAY ==
[2023-05-21] VITALS (18 sets, daily range): BP systolic 113–172; BP diastolic 65–109; PULSE 88–141; RESP 14–24; TEMP 36.5–38.2; O2SAT 91–99; BMI 34.0
--- NOTE | ~2023-05-21 | XR_ITS ---
Clinical Indication: Fever PA view of the chest: Comparison: 05/19/2023 Findings: The lungs are clear, without evidence of focal consolidation or pleural effusion. Cardiome diastinal silhouette is stable. Bones and soft tissues are unremarkable. Impression: Clear lungs. Reviewed, dictated and finalized at location . Impression: Clear lungs.
--- NOTE | ~2023-05-21 | MR_ITS ---
EXAMINATION: MR shoulder RT wo/w con DATE: 05/21/2023 12:25 INDICATION: Evaluate septic joint at the right shoulder. TECHNIQUE: Magnetic resonance imaging (MRI) of the right shoulder was performed without and with 20 m L Multihance intravenous contrast. Sequences included axial PD-weighted FS FSE, axial T1-weighted FS FSE, coronal oblique PD-weighted FS FSE, coronal oblique T2-weighted FS FSE, sagittal PD-weighted FS FSE, sagittal T1-weighted SE. And postcontrast axial, sagittal and coronal T1-weighted FS FSE COMPARISON: Right shoulder radiographs dated 05/21/2023 FINDINGS: Coracoacromial arch: The acromion undersurface is curved in morphology (type II). The coracoacromial ligament is normal. M oderate acromioclavicular osteoarthritis. Rotator cuff: Mild supraspinatus and infraspinatus tendinopathy with full-thickness tear along the distal insertion of the supraspinatus tendon which measures 2.8 cm AP and 1.3 cm medial to lateral. The tear extends additional 1.5 cm posteriorly as a partial-thickness articular sided infraspinatus tendon tear. The t ear extends anteriorly across the rotator cuff interval to involve the cephalad bursal side of the berkowitz bscapularis tendon/transverse humeral ligament. Additional deeper tear involving a significant portio n of the lesser tuberosity insertion of the tendon sparing the inferomedial quadrant of the lesser tu berosity footplate. The teres minor tendon is normal. No significant fatty atrophy of the rotator cu ff musculature suggesting the tears may be relatively recent. Biceps tendon, glenoid labrum and glenohumeral cartilage: The long head of the biceps tendon is medially subluxed across the subscapularis tendon tear defect a long the lesser tuberosity. The tendon appears to remain grossly intact with at least mild tendinopat hy. Labrum also appears to remain intact. There is mild nonuniform cartilage loss with smooth chondra l surface at the cephalad third of the glenoid and at the posterior superior aspect of the humeral he ad. No degenerative subchondral changes. Fluid: There is a small glenohumeral joint effusion with extension of fluid through the full-thickness rotat or cuff tear defect into the subacromial/subdeltoid and subcoracoid bursae. The fluid signal intensit y appears somewhat heterogeneous with peripheral enhancement and prominent soft tissue edema and non- masslike enhancement in the surrounding musculature. There appears to be some intramuscular extension of the rim enhancing fluid collection in the deep aspect of the proximal short head of the biceps br achii. Bones: There is an enhancing erosion, likely chronic with thin sclerotic margin on prior radiographs on the deep margin of the cephalad aspect of the intertubercular groove. No fracture. No other geographic lo ss of T1 marrow signal or other more recent appearing erosions to more specifically suggest osteomyel itis. IMPRESSION: 1. Prominent soft tissue edema and enhancement surrounding a peripheral enhancing joint effusion whic h communicates through the full-thickness rotator cuff tear with the subacromial/subdeltoid and subco racoid bursae including suggestion of a small amount of intramuscular extension the proximal short he ad of the biceps brachii. Appearance would be consistent with reported history of septic arthritis an d associated septic bursitis although both the inflammatory changes in the increased fluid could also be related to acute trauma. Could consider diagnostic aspiration of the joint or bursal fluid as cli nically indicated. 2. Full-thickness tear along the distal insertion of the supraspinatus tendon with more posterior par tial-thickness articular sided tear at the insertion of the infraspinatus tendon. 3. Partial tear of the subscapularis tendon involving a large portion of the lesser tuberosity insert ion as well as cephalad aspect of the insertion of the transverse humeral ligament.
--- NOTE | ~2023-05-21 | XR_ITS ---
EXAMINATION: XR chest PICC line INDICATION: PICC insertion TECHNIQUE: Portable AP chest at 1350 hours COMPARISON: 05/25/2023 FINDINGS: A left upper extremity PICC has been inserted which ends with its tip in the distal superio r vena cava. There is mild atelectasis of the lung bases. No pleural effusion or pneumothorax. The he art size is normal. Median sternotomy wires and mediastinal surgical clips are seen, likely from prio r coronary artery bypass grafting. Surgical clips in the right upper quadrant are likely from prior c holecystectomy. IMPRESSION: 1. Left upper extremity PICC inserted ending with its tip in the distal superior vena cava. Reviewed, dictated and finalized at location [] IMPRESSION: 1. Left upper extremity PICC inserted ending with its tip in the distal superio r vena cava.
--- NOTE | ~2023-05-21 | MR_ITS ---
MRI of the right humerus CLINICAL HISTORY: Biceps erythema, pain TECHNIQUE: Axial T1-weighted, T1 fat-sat, and STIR images, coronal STIR images, and sagittal T1-weigh justyna and STIR images were performed. Following intravenous administration of 20 cc MultiHance gadolini um, T1-weighted fat-sat imaging was performed in the axial and coronal planes. FINDINGS: There is mild marrow edema at the greater tuberosity humerus, consistent with enthesopathic change at the rotator cuff insertion, or possible stress response/bone contusion. Remaining bone mar row signals are unremarkable. No definite MR evidence for osteomyelitis. There is extensive edematous change in the anterior deltoid musculature, with more mild edema involvi ng the infraspinatus muscle belly and teres major muscle belly. There is also extensive edema of the coracobrachialis and short head biceps muscle bellies proximally. There is minimal amorphous edema in the triceps muscle belly and distal biceps muscle belly. Small glenohumeral joint effusion is presen t. There is extensive subcutaneous soft tissue edema throughout the right upper extremity. IMPRESSION: Extensive muscle edema of the proximal right upper extremity musculature, especially involving the an terior deltoid muscle, coracobrachialis, and short head of the biceps. There is more mild edema of th e infraspinatus, teres major, and more distal right upper extremity muscles, as detailed above. Findi ngs are compatible with infectious myositis. Extensive, marked subcutaneous soft tissue edema of the right upper extremity, consistent with cellul itis. No definite abscess evident. Small glenohumeral joint effusion. This is suspicious for septic arthritis. Please see further detail s on recently performed shoulder MR dated 05/21/2023. No definite evidence for osteomyelitis.. Please also refer to recent shoulder MR for further details regarding rotator cuff tear at the should er. Reviewed, dictated and finalized at location M. IMPRESSION: Extensive muscle edema of the proximal right upper extremity musculature, espec ially involving the anterior deltoid muscle, coracobrachialis, and short head o f the biceps. There is more mild edema of the infraspinatus, teres major, and m ore distal right upper extremity muscles, as detailed above. Findings are edwina tible with infectious myositis. Extensive, marked subcutaneous soft tissue edema of the right upper extremity, consistent with cellulitis. No definite abscess evident. Small glenohumeral joint effusion. This is suspicious for septic arthritis. Ple ase see further details on recently performed shoulder MR dated 05/21/2023. No definite evidence for osteomyelitis.. Please also refer to recent shoulder MR for further details regarding rotator c uff tear at the shoulder.
--- NOTE | ~2023-05-21 | XR_ITS ---
Right Shoulder Technique: AP and scapular Y views were obtained. Clinical History: Pain Findings: No fracture or dislocation is seen. Osseous alignment is anatomic. The glenohumeral and acr omioclavicular joint spaces are preserved. Soft tissues are unremarkable. Impression: Unremarkable right shoulder radiographs. Reviewed, dictated and finalized at [facility]. Impression: Unremarkable right shoulder radiographs.
--- NOTE | ~2023-05-21 | XR_ITS ---
Clinical Indication: Cough PA and lateral views of the chest: Comparison: 05/21/2023 Findings: The lungs are clear, without evidence of focal consolidation or pleural effusion. Cardiome diastinal silhouette is stable. Bones and soft tissues are unremarkable. Impression: Clear lungs. Reviewed, dictated and finalized at location . Impression: Clear lungs.
--- NOTE | ~2023-05-21 | US_ITS ---
Limited Abdominal Sonogram: Real-time sonographic imaging of the right upper quadrant was performed. Clinical History: Abnormal LFTs Findings: The liver appears normal with no evidence of mass lesion or bile duct dilatation. Main por henrry vein demonstrates normal direction of flow. The gallbladder is absent, compatible prior cholecyst ectomy. The common bile duct measures 4 mm. The pancreas is obscured by bowel gas shadowing. 1.9 cm hyperechoic cortical lesion present in the right kidney. No right hydronephrosis. Impression: Status post cholecystectomy. 1.9 cm hyperechoic cortical lesion in the right kidney. This is suggestive of angiomyolipoma. MR coul d be considered to confirm as indicated. Reviewed, dictated and finalized at [facility]. Impression: Status post cholecystectomy. 1.9 cm hyperechoic cortical lesion in the right kidney. This is suggestive of a ngiomyolipoma. MR could be considered to confirm as indicated.
[2023-05-21 05:08] LABS: Basophils Absolute Auto 0.1 K/mm3 (0.0-0.1); Basophils Percent Auto 0.4 % (0.2-1.2); Eosinophils Absolute Auto 0.2 K/mm3 (0-0.3); Hematocrit 42.7 % (42.0-52.0); Hemoglobin 14.2 g/dL (14.0-18.0); Immature Granulocyte Percent A 0.6 % (0-0.5); Lymphocytes Absolute Auto 0.63 K/mm3 (0.9-3.2); Lymphocytes Percent Auto 4.1 % (18.3-44.2); Mean Corpuscular HGB Conc 33.3 g/dl (32-36); Mean Corpuscular Hemoglobin 29.2 pg (26-34); Mean Corpuscular Volume 87.7 fl (80-100); Mean Platelet Volume 9.6 fl (7.4-10.4); Monocytes Percent Auto 6.4 % (2.6-8.5); Neutrophils Absolute Auto 13.5 K/mm3 (1.3-6.7); Neutrophils Percent Auto 87.5 % (45.5-73.1); Platelet Count Result 229 k/mm3 (150-375); Red Blood Count 4.87 M/mm3 (4.6-6.20); Red Cell Distribution Width 12.9 % (11.5-14.5); White Blood Count 15.5 K/mm3 (4.5-10.0)
[2023-05-21 05:21] LABS: Partial Thromboplastin Time 27.6 SECONDS (22.3-36.8); Prothrombin Time 13.4 Seconds (11.1-14.7)
[2023-05-21 05:22] LABS: Alanine Aminotransferase 88 U/L (6-50); Albumin Level 4.3 g/dL (3.5-5.1); Alkaline Phosphatase 122 U/L (38-126); Anion Gap 10 mmol/L (8-16); Aspartate Amino Transferase 36 U/L (17-59); Blood Urea Nitrogen 13 mg/dL (9-20); Calcium 8.8 mg/dL (8.4-10.2); Carbon Dioxide 31 mmol/L (22-30); Chloride 92 mmol/L (98-107); Estimated CRCL calculation 82 ml/min; Estimated Glomerular Filt Rate > 60; Glucose 139 mg/dL (65-110); Lactic Acid Reflex 1.8 mmol/L (0.7-2.0); Lipase 54 U/L (23-300); Magnesium 1.8 mg/dL (1.6-2.3); Sodium 133 mmol/L (137-145)
[2023-05-21 05:23] LABS: Anisocytosis 1+ (NORMAL); Hypochromasia 1+ (NORMAL); Platelet Estimate Adequate (Adequate); Schistocytes None Seen (NORMAL)
--- NOTE | 2023-05-21 06:00 | PC.NURSE ---
pt. attempted for UA sample.
[2023-05-21] MEDS: SODIUM CHLORIDE 0.9% IV 2,000 ML 999 ML IV CONT (06:04)
[2023-05-21] MEDS: ACETAMINOPHEN 500 MG TABLET 1000 MG PO (06:06)
[2023-05-21] MEDS: IBUPROFEN 400 MG TABLET 800 MG PO (06:06)
--- NOTE | 2023-05-21 06:40 | ED.GENADULT ---
HPI - General Adult General Chief complaint: Fever Stated complaint: 102 fever, right arm pain Time Seen by Provider: 05/21/23 05:18 History of Present Illness HPI narrative: this is a 62-year-old male presenting ED with a chief complaint of fever. Patient says that the fever started on Thursday. When the fever started associated with right shoulder pain. He was seen here 2 days ago. At that time there was some concern for a septic joint but the ER physician was unable to tap the patient's shoulder. Ortho was consulted but felt septic joint was unlikely. The patient was discharged with return precautions. Since then the patient has continued to be febrile Generally feels unwell. Shoulder pain has worsened. He has not developed chest pain, shortness of breath abdominal pain or urinary symptoms. He does have some blisters on his lips. Related Data Home Medications Medication Instructions Recorded Confirmed aspirin 81 mg chewable tablet 81 mg PO DAILY 08/24/20 12/15/22 (Aspirin Childrens) atorvastatin 40 mg tablet 40 mg PO HS 08/24/20 12/15/22 metoprolol tartrate 50 mg tablet 50 mg PO BID 11/05/21 12/15/22 mometasone-formoterol HFA 200 2 puff inhalation BID 11/05/21 12/15/22 mcg-5 mcg/actuation aerosol inhaler (Dulera) Allergies Allergy/AdvReac Type Severity Reaction Status Date / Time No Known Allergies Allergy Verified 05/21/23 06:46 [facility] Past Medical History Medical History Arthritis Asthma Asymmetrical hearing loss CAD (coronary artery disease) Chest pain Chronic back pain Colon polyp Cough Hypertension PND (post-nasal drip) Pneumonia Unspecified asthma, uncomplicated Surgical History Surgical History H/O left inguinal hernia repair robotic assisted left inguinal hernia repair with mesh 11/26/21 H/O sinus surgery History of appendectomy Hx of cholecystectomy Previous back surgery S/P CABG x 2 Family History Family History Mother Family history of diabetes mellitus in first degree relative Family history of coronary artery disease Hypertension Father Colon cancer Heart disease Social History Social History Smoking status: Never smoker 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 EYES: EOMI, NOSE: Atraumatic NECK: Is supple, no tenderness with palpation of the spine RESPIRATORY: No increased rate of breathing CARDIOVASCULAR: RRR, no peripheral edema ABDOMINAL: Non-distended, soft no guarding or rebound MUSCULOSKELETAl: shoulder joint is warm to touch although the patient is febrile in general. Pain on active and passive range of motion of the shoulder. NEURO: Alert. Moving 4/4 extremities SKIN:: Warm, dry. Normal color PSYCHIATRIC: Normal affect Course Vital Signs Vital signs: Vital Signs Temperature 100 F H 05/21/23 04:41 Pulse Rate 138 H 05/21/23 04:41 Respiratory Rate 20 05/21/23 04:41 Blood Pressure 136/109 H 05/21/23 04:41 Pulse Oximetry 96 05/21/23 04:41 Oxygen Delivery Room Air 05/21/23 04:41 Temperature 100.7 F H 05/21/23 06:19 Pulse Rate 91 05/21/23 06:19 Respiratory Rate 14 05/21/23 06:19 Blood Pressure 172/76 H 05/21/23 06:19 Pulse Oximetry 99 05/21/23
[2023-05-21 07:16] LABS: Influenza A QL RT-PCR Negative (Negative); Influenza B QL RT-PCR Negative (Negative); RSV RNA, RT-PCR Negative (Negative); SARS-CoV-2 RNA PCR Negative (Negative)
[2023-05-21 08:01] LABS: Appearance Urine Cloudy (Clear); Bacteria Urine None Seen /hpf; Bilirubin Urine Negative (Negative); Blood Urine Negative (Negative); Color Urine Yellow (Yellow); Glucose Urine UA Negative (Negative); Ketones Urine Negative (Negative); Leukocyte Esterase Ur Negative LEU/UL (Negative); Nitrate Urine Negative (Negative); Protein Urine 2+ mg/dL (Negative); RBC Urine 0-2 /hpf (0-2); Specific Grav Ur 1.023 (1.001-1.035); Squamous Epithelial Cell Urine None seen /hpf (Few); Urobilinogen Urine 0.2 mg/dL (<2.0); WBC Urine 0-5 /hpf; pH Urine 5.5 (5.0-9.0)
[2023-05-21] MEDS: POTASSIUM CHLORIDE 20 MEQ PACKET (FOR LIQUID) 40 MEQ PO (08:04)
[2023-05-21 08:16] LABS: Add Urine Microscopic? YES
[2023-05-21] MEDS: LACTATED RINGERS 1,000 ML 125 ML IV CONT (08:48)
--- NOTE | 2023-05-21 09:04 | ADMGEN ---
This patient, Raad Childers, was admitted to IMU Room 203-01. Patient/family oriented to hospital policies and general routines including ID bracelet, bed and alarms, visiting hours, pain management, procedures, bathroom and other care routines, personal items, smoking policy, room service/diet, and visiting hours. Information on how to activate the Rapid Response Team has been discussed. Patient/Family are encouraged to report perceived risks to care and to ask questions if they do not understand what they are told or what they should do.
[2023-05-21] MEDS: ACETAMINOPHEN 325 MG TABLET 650 MG PO (10:11)
--- NOTE | 2023-05-21 10:50 | PM.CNOR ---
Assessment and Plan Assessment and plan (1) Acute shoulder pain: Qualifiers: Laterality: right Qualified Code(s): M25.511 - Pain in right shoulder Code(s): M25.519 - Pain in unspecified shoulder Status: Acute Assessment and Plan: patient admitted for acute onset right shoulder pain and swelling. Increased pain with motion. Inability to lift the arm secondary to pain and weakness. 2 attempts at aspiration negative for fluid. Elevated white count and fever suspicious for septic arthritis although relatively rare without other medical comorbidities. Differential diagnosis includes rotator cuff tendinitis versus tear or proximal biceps tendon pathology. Also sclerosis noted on the radiograph of the humeral head. Discussed with patient and his . MRI planned for further workup. Conservative care with ice, sling, pain control. Await MRI results for further recommendations on treatment. (2) Swelling of joint, shoulder, right: Code(s): M25.411 - Effusion, right shoulder Status: Acute (3) Right rotator cuff tendinitis: Code(s): M75.81 - Other shoulder lesions, right shoulder Status: Acute (4) Labral tear of long head of right biceps tendon: Qualifiers: Encounter type: initial encounter Qualified Code(s): S46.111A - Strain of muscle, fascia and tendon of long head of biceps, right arm, initial encounter Code(s): S46.111A - Strain of muscle, fascia and tendon of long head of biceps, right arm, initial encounter Status: Acute History of Present Illness HPI Consult date: 05/21/23 Requesting physician: Pritesh Whitehead MD Consult reason: joint pain (rt shoulder) Chief complaint: fever,unknown origin Narrative: a 62-year-old man who return to the emergency room this morning for increasing right shoulder pain. Noticed increasing pain since previous weekend. Presented to the emergency room 2 days ago where attempted aspiration and radiographs were reportedly negative. Fever at home by family report to 102.5 and increasing shoulder pain prompted return to the emergency room this morning. Denies numbness or tingling. Denies systemic complaints other than fever. No problems eating or voiding. Pain with movement of the right shoulder. Attempted aspiration in the emergency room this morning failed to return any fluid. White count initially 18 3 days ago, now 15. Admitted for further workup and evaluation. 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 No prior problems with the shoulder. Denies neck pain. Review of Systems Constitutional: Constitutional: Denies fever(s) Eyes: Eyes: Denies blurry vision ENT: Reports Normal hearing present Cardiovascular: Cardiovascular: Denies chest pain and Denies dyspnea Respiratory: Respiratory: Denies dyspnea and Denies wheezing Gastrointestinal: Gastrointestinal: Denies abdominal pain Genitourinary: Genitourinary: Denies urinary urgency Musculoskeletal: Musculoskeletal: Reports as per HPI and Denies numbness Integumentary/Breasts: Skin/Breast: Denies changing lesions and Denies sores Neurologic: Reports Normal hearing present, Denies behavioral changes, Denies confusion, Denies numbness and Denies convulsions Psychiatric: Psychiatric: Denies behavioral changes, Denies confusion and Denies hallucinations Endocrine: Endocrine: Denies heat intolerance Hematologic/Lymphatic: Hematologic/Lymphatic: Denies easy bleeding Allergic/Immunologic: Allergic/Immunologic: Denies wheezing PMFSH Past Medical History Medical History (Updated 05/21/23 @ 10:58 by Cosmo Bermudez MD) Arthritis Asthma Asymmetrical hearing loss CAD (coronary artery disease) Chest pain Chronic back pain Colon polyp Cough Hypertension Labral tear of long head of right biceps tendon PND (post-nasal drip) Pneumonia Right rotator cuff tendinitis Swelling of joint, shoul
--- NOTE | 2023-05-21 13:19 | PM.IMHP ---
H&P: HPI History of Present Illness Date/Time: 05/21/23 13:00 Chief Complaint: Fever and right shoulder pain. Narrative: This is a pleasant 62-year-old male with coronary artery disease, hypertension, and hyperlipidemia who presented to the emergency department for evaluation of fever and right shoulder pain. The patient provides the following history. He was evaluated for the same symptoms in the emergency department 2 days ago and attempts to aspirate the right shoulder were unsuccessful. senior specialist was consulted and felt that septic joint was initially unlikely. He was discharged home with return precautions. Since that time he has continued to have a fever up to 103?, feelings of generalized malaise, and worsening pain and swelling over the right shoulder. 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 He is right-handed and uses that arm a lot at work but to his knowledge he has never sustained any significant injuries to the arm or shoulder. No recent falls, trauma, or heavy lifting. He does not have any open wounds anywhere on his body and denies recent puncture wounds. No artificial joints in place. No history of septic arthritis. He has not noticed pain, swelling, or inflammation of any other joints. No vision changes or urinary issues. He has perhaps some tingling on the right forearm but no overt numbness, skin color, or temperature changes. MRI of the right shoulder today shows findings consistent with septic arthritis and he is now status post arthrocentesis per Dr. Bermudez. He has been started on empiric antibiotics, pending cultures. At the time my evaluation he has moderate amount of discomfort over the right shoulder. He is hungry. He has no other complaints. Review of Systems Review of Systems: Twelve systems were reviewed and are negative except for as per HPI. FORMERLY [facility] Past Medical History Medical History (Updated 05/21/23 @ 13:35 by Dione Ramirez PA-C) Arthritis Asthma Asymmetrical hearing loss Chronic back pain Colon polyp Coronary artery disease Hyperlipidemia Hypertension Obstructive sleep apnea Pneumonia Surgical History Surgical History (Updated 05/21/23 @ 13:32 by Dione Ramirez PA-C) History of appendectomy History of cardiac catheterization (05/24/20) Multivessel coronary artery disease sent for revascularization. History of colonoscopy with polypectomy History of coronary artery bypass graft x 2 (06/28/20) GODWIN to LAD and SVG to OM per Dr. Cross at [facility]. History of laparoscopic cholecystectomy (12/25/04) History of left inguinal hernia repair (11/26/21) Robotic assisted with mesh. History of lumbar surgery History of sinus surgery (03/21/05) Family History Family History Mother Family history of diabetes mellitus in first degree relative Family history of coronary artery disease Hypertension Father Colon cancer Heart disease Sibling Diabetes mellitus Social History Social History (Updated 05/21/23 @ 13:33 by Dione Ramirez PA-C) Social History: Surrogate medical decision maker: Wendi Lawrencemayte, spouse. Code status: Full code. Smoking status: Former smoker 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: 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, 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) Alcohol intake: current Drinks per week: 2 Alcohol use details: Shot of whiskey on the weekends. Substance use: former Substance use type: marijuana Lack of Transportation: No Lack of Food: Never True Current Housing: I Have Housing Concerned About Future Housing: No Difficulty Paying Gas/Electric Bills: No Difficulty Paying for Meds: No Currently Unemployed: No Education: Decline to Answer Difficulty w/ Childcare or Family Care: No Living arrangements: with family Additional living arrangements comments: Lives with spouse in [place]. Occupation/Education: retire
[2023-05-21] MEDS: HYDROcodone/acetaminophen (*CRX) 5-325 MG TABLET 1 TAB PO ×3 (14:05→23:42)
[2023-05-21] MEDS: SODIUM CHLORIDE 0.9% IV 1,000 ML 100 ML IV CONT (15:00)
--- NOTE | 2023-05-21 16:05 | PM.OP ---
Procedure Note - Brief Procedure Note - Brief Date of procedure: 05/21/23 fever,unknown origin Procedure performed: Right Shoulder Aspiration Surgeon: JUANJOSE Bond Staff Antisubmarine Officer: Dr. Cosmo Bermudez Anesthesia: local Findings: Right shoulder aspiration. 20mL of cloudy fluid aspirated from the right shoulder. Sent for synovial fluid cell count, STAT gram stain, aerobic and anaerobic culture, protein and glucose. Description of procedure: Right shoulder prepped in sterile fashion. Aspiration performed, tolerated well. Estimated blood loss (mL): 0 Tourniquet time (min): 0 IV fluids (mL): 0 Urine output (mL): 400 Drains: No Packing: No Pathology: Yes Complications: No immediate complications Condition: Stable Disposition: No change Joint Aspiration/Injection Pre-Procedure Pre-procedure care: Consent was obtained, Procedures/risks were explained, Questions were answered, Correct patient identified and Correct side and site confirmed Position Position: Sitting Site Prepped Technique: sterile technique Anesthetic: lidocaine 1% plain 22 gauge Injection Details right arthrocentesis major joint Shoulder anterior aspect Manual palpation Fluid: Purulent Fluid Withdrawn (mL): 20 Sterile Dressing Adhesive Improvement by site: Mild Post Procedure Patient tolerated the procedure well?: Tolerated procedure well
[2023-05-21] MEDS: cefTRIAXone 2 GM/NS 100 ML 2 GM/100 ML BAG IVPB (17:14)
[2023-05-21 17:24] LABS: Appearance Synovial Fluid Bloody (Clear); Color Synovial Fluid Red (Colorless); Source Synovial Fluid Synovial fluid
[2023-05-21 17:33] LABS: Lymphocytes Synovial Fluid 17 %; Monocytes Synovial Fluid 14 %; Neutrophils Synovial Fluid 69 % (0-25)
[2023-05-21 17:40] LABS: Crystals Synovial Fluid None Seen (None Seen)
--- NOTE | 2023-05-21 17:40 | ECG_ITS ---
Measurements Intervals [place] Rate: 130 P: 37 CO: 159 QRS: -49 QRSD: 94 T: 20 QT: 315 QTc: 464 Interpretive Statements SINUS TACHYCARDIA PATTERN CONSISTENT WITH PULMONARY DISEASE LEFT ANTERIOR FASCICULAR BLOCK Nonspecific mild ST changes COMPARED TO ECG 04/02/2021 10:45:29 SINUS TACHYCARDIA NOW PRESENT LEFT ANTERIOR FASCICULAR BLOCK NOW PRESENT ST (T WAVE) DEVIATION NOW PRESENT Electronically Signed On 05-21-2023 18:19:58 CDT by Brissa Larson M.D.
[2023-05-21] MEDS: VANCOMYCIN 1,250 MG/NS 250 ML 1,250 MG/250 ML BAG 166.67 MG IVPB ×2 (17:58→20:16)
[2023-05-21] MEDS: METOPROLOL TARTRATE 50 MG TAB PO (20:15)
[2023-05-21] MEDS: ATORVASTATIN 40 MG TABLET PO (20:16)
[2023-05-21] MEDS: FLUTICASONE/SALMETEROL 230-21 MCG INHALER 1 PUFF 2 PUFF INHALATION (21:10)
[2023-05-22] VITALS (21 sets, daily range): BP systolic 107–160; BP diastolic 60–80; PULSE 86–116; RESP 14–25; TEMP 36.4–37.7; O2SAT 91–100
[2023-05-22 05:05] LABS: Hematocrit 38.9 % (42.0-52.0); Hemoglobin 12.8 g/dL (14.0-18.0); Mean Corpuscular HGB Conc 32.9 g/dl (32-36); Mean Corpuscular Hemoglobin 29.4 pg (26-34); Mean Corpuscular Volume 89.2 fl (80-100); Mean Platelet Volume 9.9 fl (7.4-10.4); Platelet Count Result 223 k/mm3 (150-375); Red Blood Count 4.36 M/mm3 (4.6-6.20); Red Cell Distribution Width 13.2 % (11.5-14.5); White Blood Count 19.9 K/mm3 (4.5-10.0)
[2023-05-22 05:16] LABS: Anion Gap 7 mmol/L (8-16); Blood Urea Nitrogen 13 mg/dL (9-20); Carbon Dioxide 27 mmol/L (22-30); Chloride 99 mmol/L (98-107); Estimated CRCL calculation 83 ml/min; Estimated Glomerular Filt Rate > 60; Glucose 134 mg/dL (65-110); Magnesium 1.9 mg/dL (1.6-2.3); Sodium 133 mmol/L (137-145)
[2023-05-22] MEDS: SODIUM CHLORIDE 0.9% IV 1,000 ML 100 ML IV CONT (05:34)
[2023-05-22] MEDS: HYDROcodone/acetaminophen (*CRX) 5-325 MG TABLET 1 TAB PO ×2 (05:41→23:11)
[2023-05-22] MEDS: ceFAZolin 2 GM/D5W 50 ML 2 GM/50 ML BAG IVPB ×2 (07:24→09:58)
[2023-05-22] MEDS: FLUTICASONE/SALMETEROL 230-21 MCG INHALER 1 PUFF 2 PUFF INHALATION ×2 (07:58→21:24)
[2023-05-22] MEDS: METOPROLOL TARTRATE 50 MG TAB PO ×2 (08:18→20:54)
--- NOTE | 2023-05-22 08:45 | PM.PNORT ---
Progress Note: A&P Assessment and Plan (1) Septic arthritis of shoulder, right: Qualifiers: Septic arthritis organism: due to unspecified organism Qualified Code(s): M00.9 - Pyogenic arthritis, unspecified Code(s): M00.9 - Pyogenic arthritis, unspecified Status: Acute Assessment and Plan: Gram + cocci on aspirate. Discussed with patient and . Discussed nonoperative and operative treatment options with the patient. Risks and benefits of each as well as alternatives were reviewed. All of the patient's questions were answered. The risks of surgery reviewed including but not limited to: Neurovascular damage, wound complication, infection, blood clot, pulmonary embolus, stroke, myocardial infarction, and anesthetic risks up to and including . Continued pain and possible dysfunction were explained. Specific risks of the procedure including later recurrence of deformity. No guarantees were offered. If hardware used, discussed risk of failure/ breakage and possible need for removal. If complications occur, the patient understands the need for further treatment, possible further surgery. Discussed possible biceps tenotomy and time of debridement. Risk of bicep alex deformity reviewed. Patient verbalizes understanding and wishes to proceed. PLAN: Arthroscopic debridement right shoulder Subjective Subjective Date/Time Seen: 05/22/23 08:45 Principal diagnosis: rt shoulder sepsis Interval history: States pain improved but still stiff. Denies N/T. Aspirate yesterday. Review of Systems Constitutional: Constitutional: Denies fever(s) Eyes: Eyes: Denies blurry vision ENT: Reports Normal hearing present Cardiovascular: Cardiovascular: Denies chest pain and Denies dyspnea Respiratory: Respiratory: Denies dyspnea and Denies wheezing Gastrointestinal: Gastrointestinal: Denies abdominal pain Genitourinary: Genitourinary: Denies urinary urgency Musculoskeletal: Musculoskeletal: Reports as per HPI and Denies numbness Integumentary/Breasts: Skin/Breast: Denies changing lesions and Denies sores Neurologic: Reports Normal hearing present, Denies behavioral changes, Denies confusion, Denies numbness and Denies convulsions Psychiatric: Psychiatric: Denies behavioral changes, Denies confusion and Denies hallucinations Endocrine: Endocrine: Denies heat intolerance Hematologic/Lymphatic: Hematologic/Lymphatic: Denies easy bleeding Allergic/Immunologic: Allergic/Immunologic: Denies wheezing Exam Const: General: healthy appearing; No in distress or confusion Orientation/consciousness: oriented to person, oriented to place, oriented to time and No confusion HENMT: Head: normal to inspection, normocephalic and atraumatic Eyes: Conjunctivae: conjunctivae normal Sclera: sclerae normal Neck: Neck: supple and nontender Resp: Effort & Inspection: normal respiratory effort and no audible wheezes Cardio: Rate: regular rate Rhythm: regular rhythm Skin: General skin exam: no rashes or lesions noted Neuro: General: oriented to person, oriented to place, oriented to time and No confusion Extrem: Right upper extremity: shoulder/upper arm abnormal to inspection loss of deltoid contour, tenderness of the A-C joint, over the subacromial bursa and other (anterolateral acromion, joint), swelling of the proximal humerus anteriorly and laterally and other ( biceps tendon), axillary nerve sensory function normal, abnormal ROM (Active FF 20, ABd 20, ER 5, IR side) pain with active ROM in ABduction, in flexion and in internal rotation and pain with passive ROM with internal rotation and external rotation- and other (RC 3/5, Bicep 3/5, Deltoid 5-/5, ER 4/5), elbow/forearm normal ROM; no tenderness and no swelling, wrist normal ROM and radial pulse present; no tenderness and Extremity exam: right hand neuromotor exam normal wrist extension normal, thumb opposition normal, thumb IP flexion normal and fingers 2-
--- NOTE | 2023-05-22 08:51 | WPDHPUPDATE1 ---
History and Physical Update Update Date/Time: 05/22/23 08:51 History and Physical has been reviewed, including an updated exam of the patient. There are NO changes in the patient's condition. Risks, benefits, and alternatives have been discussed and questions answered. Patient agrees to proceed with procedure.
[2023-05-22] MEDS: LACTATED RINGERS 1,000 ML 30 ML IV CONT ×2 (09:00→11:41)
[2023-05-22] MEDS: ACETAMINOPHEN 500 MG TABLET 1000 MG PO (09:00)
[2023-05-22] MEDS: KETOROLAC 15 MG/ML VIAL (*BKC) IV PUSH (09:00)
--- NOTE | 2023-05-22 09:24 | WPDANESEPPF ---
Anes - Initial Pre Proc Eval Procedure: Operation Date: 05/22/23 10:00 Proposed Procedures p Right Shoulder Arthroscopic Incision and Debridement - Cosmo Bermudez MD Date/Time: 05/22/23 09:24 Surgeon: Dominick Jerez MD Pre Op Diagnosis: fever,unknown origin Patient Data Age: 62 Gender: M Height: 1.75 m Weight: 104.3 kg Last Vital Signs Temp 36.9 C 05/22/23 08:00 Pulse 103 H 05/22/23 08:18 Resp 16 05/22/23 08:00 BP 121/61 05/22/23 08:00 Pulse Ox 95 05/22/23 08:00 O2 Del Method Room Air 05/22/23 04:00 FiO2 21 05/22/23 04:00 Allergies Allergy/AdvReac Type Severity Reaction Status Date / Time No Known Allergies Allergy Verified 05/21/23 06:46 Home Medications Medication Instructions Recorded Confirmed Type aspirin 81 mg chewable tablet 81 mg PO DAILY 08/24/20 05/21/23 History (Aspirin Childrens) atorvastatin 40 mg tablet 40 mg PO HS 08/24/20 05/21/23 History metoprolol tartrate 50 mg tablet 50 mg PO Q12H 11/05/21 05/21/23 History mometasone-formoterol HFA 200 2 puff inhalation BID 11/05/21 05/21/23 History mcg-5 mcg/actuation aerosol inhaler (Dulera) tramadol 50 mg tablet 50 mg PO Q6H PRN pain #30 tabs 04/22/23 05/21/23 Rx albuterol sulfate 2.5 mg/3 mL 2.5 mg inhalation Q6H PRN Wheezing 05/21/23 05/21/23 History (0.083 %) solution for nebulization lisinopril 20 mg tablet 20 mg PO DAILY 05/21/23 05/21/23 History sildenafil 100 mg tablet 100 mg PO DAILY PRN Sexual Activity 05/21/23 05/21/23 History Laboratory Tests 05/21/23 05/22/23 15:32 04:37 WBC 19.9 H K/mm3 (4.5-10.0) RBC 4.36 L M/mm3 (4.6-6.20) Hgb 12.8 L g/dL (14.0-18.0) Hct 38.9 L % (42.0-52.0) MCV 89.2 fl (80-100) MCH 29.4 pg (26-34) MCHC 32.9 g/dl (32-36) RDW 13.2 % (11.5-14.5) Plt Count 223 k/mm3 (150-375) MPV 9.9 fl (7.4-10.4) Sodium 133 L mmol/L (137-145) Potassium 3.0 L mmol/L (3.4-5.0) Chloride 99 mmol/L (98-107) Carbon Dioxide 27 mmol/L (22-30) Anion Gap 7 L mmol/L (8-16) BUN 13 mg/dL (9-20) Creatinine 1.00 mg/dL (0.7-1.3) Estim Creat Clear Calc 83 ml/min Estimated GFR > 60 (59 - ) Glucose 134 H mg/dL (65-110) Calcium 8.0 L mg/dL (8.4-10.2) Magnesium 1.9 mg/dL (1.6-2.3) Synovial Source Synovial fluid Synovial Color Red (Colorless) Synovial Appearance Bloody A (Clear) Synovial RBC TNP Synovial Nuc Cells TNP Synovial Neutrophils 69 H % (0-25) Synovial Lymphocytes 17 % Synovial Monocytes 14 % Synovial Crystals None seen (None Seen) Synovial Glucose Pending Synovial Total Protein Pending Patient hx anesthesia problems: none Family hx anesthesia problems: none Results Review: All pre-operative results and documents have been reviewed as part of the pre-operative evaluation. FORMERLY [facility] Past Medical History Medical History Arthritis Asthma Asymmetrical hearing loss Chronic back pain Colon polyp Coronary artery disease Hyperlipidemia Hypertension Obstructive sleep apnea Pneumonia Surgical History Surgical History History of appendectomy History of cardiac catheterization (05/24/20) Multivessel coronary artery disease sent for revascularization. History of colonoscopy with polypectomy History of coronary artery bypass graft x 2 (06/28/20) GODWIN to LAD and SVG to OM per Dr. Cross at [facility]. History of laparoscopic cholecystectomy (12/25/04) History of left inguinal hernia repair (11/26/21) Robotic assisted with mesh. History of lumbar surgery History of sinus surgery (03/21/05) Family History Family History (Reviewed 05/22/23 @ 09:24 by Oneil Noyola,
[2023-05-22] MEDS: VANCOMYCIN HCL 1,000 MG VIAL 1000 MG XX (11:27)
[2023-05-22] MEDS: fentaNYL CITRATE INJ (*CRX) 100 MCG/2 ML VIAL 25 MCG IV PUSH (11:40)
--- NOTE | 2023-05-22 12:13 | P.OP_ITS ---
Procedure Note - Detailed Date of Procedure 05/22/23 Pre-op Diagnosis Right shoulder septic arthritis Post-op Diagnosis Same Procedure Performed arthroscopic debridement right shoulder, biceps tenotomy Surgeon Cosmo Bermudez MD Senior Risk Analyst 1st dental ceramist assistant Anesthesia General Indications 62-year-old with right shoulder pain and swelling for the past week. Aspiration revealed gram-positive cocci. Blood cultures show gram-positive cocci. Presents now for debridement. Findings Inflammatory changes glenohumeral joint and biceps tendon. A degenerative type labral tear. Rotator cuff tear supraspinatus without retraction. Inflammatory changes subacromial space. Description of Procedure Patient identified in the preoperative holding. Informed consent given. Operative extremity marked. Patient received intravenous antibiotics. Patient brought to the operating room where underwent general anesthetic by anesthesia team. Positioned supine on operating room table. Time-out performed confirming the patient, site of the surgery and the plan. Patient was then positioned in the beach chair position with careful securing of the head and neck. Right shoulder was then prepped and draped usual sterile surgical fashion using a ChloraPrep skin solution. Local anesthetic with 0.5% Marcaine with epinephrine was used at the portal sites. Standard posterior arthroscopy portal position with a 22 gauge spinal needle and infiltrating of the joint with saline. Eleven blade knife used to incise the skin and blunt penetration of the soft tissue and posterior capsule. Camera and inflow restarted through this portal. The shoulder was inspected and findings were noted. Anterior portal was then made using positioning from a 22 gauge spinal needle, 11 blade knife for the skin and blunt penetration of the anterior capsule. 4.5 mm arthroscopic shaver introduced and a debridement of the shoulder joint was performed including the glenoid and humeral head, undersurface of the rotator cuff, labrum and the rotator cuff tear site itself. Arthroscopic wand introduced and bleeding points were coagulated. Any excess synovitis was removed with the Wand. The proximal biceps was then released with the arthroscopic Wand. There was partial retraction of the tendon but not complete retraction. The arthroscope was then positioned into the subacromial space and the shaver was introduced and debridement of the subacromial bursa was performed. From this position the full-thickness rotator cuff was able to be better visualized. 22 gauge needle then used to aspirate the biceps muscle and biceps tendon more distal to the shoulder joint. 5 cc of fluid able to be aspirated consistent with arthroscopy irrigant. No purulence noted. Subcutaneous tissue repaired with 3 0 Monocryl interrupted suture and the skin repaired with Glue followed by sterile dressing. Patient then awoke from anesthesia, extubated and taken to the recovery room in stable condition. All sponge needle and instrument counts correct in the case. Estimated Blood Loss -10.0 Urine Output 400 Drains No Packing No Pathology None sent Complications None Condition Stable Disposition PACU [facility] Billing Surgery - Charge Forward: Surgery Billing ([id number])
--- NOTE | 2023-05-22 12:22 | SUR.PHASEI ---
RN left a message on Dr. Bermudez's cell requesting transfer orders.
--- NOTE | 2023-05-22 13:45 | PHA.ABX.ID ---
Pharmacy ID Consult - Stewardship Interventions Type of Interventions: Other (Empiric) Pharmacy ID Note: Subjective Pharmacy was consulted by Fazal Bermudez regarding infectious diseases for Raad Childers. Raad Childers is a 62 year old M with concerns regarding [place] septic arthritis. Background The patient is currently receiving Ceftriaxone IV 2g q24h and vancomycin iv pharmacy to dose. The patient's PMH includes presenting with similar symptoms 2 days prior to admission in the ER but was unable to be tapped at the time and was recommended to return if appropriate. The patient was febrile and symptoms remain and with the assistance of MRI imaging the shoulder joint was aspirated on 05/21 and then arthroscopic washout was done today 05/22. Labs and Micro as below. Microbiology 05/21/23 15:33 Shoulder Right Anaerobic Culture - Preliminary <-- preliminary growth showing gpc in chains 05/21/23 06:10 Blood Blood Culture - Preliminary Gram positive cocci in chains 05/21/23 05:02 Blood Blood Culture - Preliminary 05/21/23 15:32 Shoulder Right Gram Stain - Final <-- many wbc's and moderate gpc's Assessment/Recommendation/Discussion Spoke briefly with Nora Jones (with the consulting provider's service) regarding this patient and discussed that most common organisms that present as chains are either streptococcus which is covered by both Ceftriaxone and Vancomycin or enterococcus which all save VRE is covered with vancomycin. If VRE can consider agents like daptomycin 8 - 10 mg/kg adjusted body weight renally dosed, linezolid, or ampicillin depending on if appropriate and sensitive. Will follow for culture results and recommended repeat cultures be obtained so blood culture clearance can be documented. Pathogen will aid in identifying duration for patient. will continue to follow. please reach out if additional information comes to light. Thank you for the interesting consult. Kristopher Collazo, PharmD Infectious Disease/Antimicrobial Stewardship Pharmacist 05/22/23; 1345 WBC 19.9 K/mm3 (4.5-10.0) H 05/22/23 04:37 Creatinine 1.00 mg/dL (0.7-1.3) 05/22/23 04:37 Estim Creat Clear Calc 83 ml/min 05/22/23 04:37
--- NOTE | 2023-05-22 14:30 | PCCCNOTE ---
On 05/22/23, the student, [Ana Romero ], provided care and completed [facility] documentation on this patient. I have reviewed the student's documentation and agree with the findings.
--- NOTE | 2023-05-22 16:05 | PM.IMPN ---
Progress Note: A&P Assessment and Plan (1) Sepsis: Code(s): A41.9 - Sepsis, unspecified organism Status: Acute Assessment and Plan: The patient presents with fever and tachycardia. He had elevated WBC consistent with sepsis from septic arthritis of the right shoulder. Lactic acid was normal. Blood pressures have been stable. BCx 05/21 growing GPC in chains in anaerobic bottle. Right shoulder synovial gram stain (05/21) positive for many WBCs and moderate GPC. Wound culture 05/21 growing GPC in chains as well. He was started on empiric ceftriaxone 2 mg Q 24 hours and vancomycin. Will check surface Echo. May need ERIN if persistent bacteremia. He will need repeat BCx. PharmD ID consulted. (2) Septic arthritis of shoulder, right: Qualifiers: Septic arthritis organism: due to unspecified organism Qualified Code(s): M00.9 - Pyogenic arthritis, unspecified Code(s): M00.9 - Pyogenic arthritis, unspecified Status: Acute Assessment and Plan: The patient presented to the emergency department for evaluation of continued fever and right shoulder pain and found to have sepsis from right shoulder septic joint. Synovial fluid and blood cultures positive for GPC. MRI of the right shoulder 05/21 shows a full-thickness rotator cuff tear and findings which could be consistent with septic arthritis and associated septic bursitis. Patient taken to the OR today for septic arthritis. he was found to have inflammatory changes of the glenohumeral joint and biceps tendon, a degenerative type labral tear and rotator cuff supraspinatus tear without retraction.?he had inflammatory changes subacromial space. Appreciate ortho input. Continue wound care. (3) Hypokalemia: Code(s): E87.6 - Hypokalemia Status: Acute Assessment and Plan: Potassium was low on admission. Not on diuretics. Replace and monitor. (4) Essential hypertension: Code(s): I10 - Essential (primary) hypertension Status: Acute Assessment and Plan: Patient's blood pressure was reviewed on 05/22 Blood pressure remains well controlled. Will continue to monitor (5) Coronary artery disease: Code(s): I25.10 - Atherosclerotic heart disease of [place] coronary artery without angina pectoris Status: Acute Assessment and Plan: No complaints of chest pain. Continue Lipitor, ASA and metoprolol (6) Elevated LFTs: Code(s): R79.89 - Other specified abnormal findings of blood chemistry Status: Acute Assessment and Plan: On 05/19, patient noted to have elevated LFTs with hyperbili. Acetaminophen level <10. Repeat levels much better and almost completely normal now. Influenza, RSV and COVID negative on 05/21. Will follow. Okay to continue Lipitor. Plan Cold sores - Abreva DVT Prophylaxis - SCDs Code status - Full Subjective Date/time seen: 05/22/23 16:05 Interval history: 62yo male with CAD, HTN and HLD here for fevers and right shoulder pain. Patient back from procedure. His pain is well controlled. He denies recent rash. No recent dental work. No dysuria or hematuria. No CP or SOB. Recent sinus symptoms and mild cough. Exam Narrative: Tm 100.1 99.2 120/60 104 20 94% 2L Gen - NARD sitting up in chair HEENT - multiple dried cold sores noted to the lips Chest - few basilar crackles o/w clear. CV - tachycardic, regular. Tele showing sinus tachycardia Abd - Soft, NT/ND, Positive BS Ext - No pedal edema. Right shoulder in sling. Psych - Nml mood and affect Skin - erythematous patch right upper arm Objective Data Vital Signs Vital Signs: Vital Signs - 24 hr 05/21/23 17:55 05/21/23 20:15 05/21/23 20:34 Temperature 98.3 F Pulse Rate 121 H 133 H 133 H Respiratory Rate 20 Blood Pressure 151/71 H Pulse Oximetry 97 Oxygen Delivery Oxygen Flow Rate Fraction of Inspired Oxygen 05/21/23 21:20 05/21/23 20:00 05/21/23 20:0
[2023-05-22] MEDS: POTASSIUM CHLORIDE 20 MEQ ER TABLET 40 MEQ PO (18:26)
[2023-05-22] MEDS: SENNA/DOCUSATE SODIUM TABLET 2 TAB PO (18:26)
[2023-05-22] MEDS: lisinopriL 20 MG TABLET PO (18:26)
[2023-05-22] MEDS: DOCOSANOL 10% CREAM 2 GM 1 APPLIC TOPICAL (18:27)
[2023-05-22] MEDS: cefTRIAXone 2 GM/NS 100 ML 2 GM/100 ML BAG IVPB (18:28)
--- NOTE | 2023-05-22 19:10 | PC.NURSE ---
This patient, Raad Childers, was transferred to [facility] on 05/22/23 at 1900. Personal belongings sent with patient. Report given to Aruna LOGAN. Appropriate documentation sent with patient.
[2023-05-22] MEDS: ATORVASTATIN 40 MG TABLET PO (20:54)
[2023-05-23] VITALS (9 sets, daily range): BP systolic 112–144; BP diastolic 69–76; PULSE 84–122; RESP 14–20; TEMP 35.6–37.9; O2SAT 92–97
--- NOTE | 2023-05-23 | ECHO_ITS ---
Patient Info Name: Raad Childers Age: 62 years : 1960 Gender: Male Ht: 69 in Wt: 225 lbs BSA: 2.26 m2 HR: 110 bpm BP: 112 / 70 mmHg Heart Rhythm: Sinus Rhythm Technical Quality: Good Exam Date: 05/23/2023 11:18 AM Exam Location: [facility] Patient Status: Inpatient Admit Date: 05/21/2023 Staff Ordering Physician: Rufino Jerez MD Mysql Dba: Rashi Boucher RDCS Attending Provider: Rufino Jerez MD Exam Type: CA echo doppler color flow Study Info Indications - bacteremia Complete two-dimensional, color flow and Doppler transthoracic echocardiogram is performed. Summary 1. Complete two-dimensional, color flow and Doppler transthoracic echocardiogram is performed. 2. Normal left ventricular size thickness and systolic contractility. 3. Mildly enlarged left atrium. 4. Mild MR. 5. No evidence of a valvular vegetation visualized. Left Ventricle Left ventricular chamber dimension is normal. Left ventricular systolic function is normal, estimated at 60-65%. The left ventricular diastolic function is normal. Right Ventricle Right ventricular chamber dimension is normal. Left Atria Left atrial chamber dimension is mildly enlarged. Right Atria Right atrial chamber dimension is normal. Aortic Valve The aortic valve is normal. Pulmonic Valve The pulmonic valve is not well visualized. Mitral Valve The mitral valve has normal leaflets. There is mild mitral valve regurgitation. Tricuspid Valve The tricuspid valve leaflets are normal. Pericardium/Pleural The pericardium appears normal. Aorta The aortic root size at the sinus of Valsalva is normal. Report Signatures
[2023-05-23] MEDS: HYDROcodone/acetaminophen (*CRX) 5-325 MG TABLET 1 TAB PO ×3 (03:23→20:49)
[2023-05-23 06:05] LABS: Hematocrit 39.5 % (42.0-52.0); Hemoglobin 12.8 g/dL (14.0-18.0); Mean Corpuscular HGB Conc 32.4 g/dl (32-36); Mean Corpuscular Hemoglobin 29.4 pg (26-34); Mean Corpuscular Volume 90.6 fl (80-100); Mean Platelet Volume 9.6 fl (7.4-10.4); Platelet Count Result 276 k/mm3 (150-375); Red Blood Count 4.36 M/mm3 (4.6-6.20); Red Cell Distribution Width 13.4 % (11.5-14.5); White Blood Count 23.5 K/mm3 (4.5-10.0)
[2023-05-23 06:22] LABS: Alanine Aminotransferase 81 U/L (6-50); Albumin Level 3.2 g/dL (3.5-5.1); Alkaline Phosphatase 113 U/L (38-126); Anion Gap 5 mmol/L (8-16); Aspartate Amino Transferase 102 U/L (17-59); Bilirubin,Total 0.6 mg/dL (0.2-1.3); Blood Urea Nitrogen 16 mg/dL (9-20); Calcium 8.1 mg/dL (8.4-10.2); Carbon Dioxide 32 mmol/L (22-30); Chloride 97 mmol/L (98-107); Estimated CRCL calculation 70 ml/min; Estimated Glomerular Filt Rate > 60; Glucose 140 mg/dL (65-110); Magnesium 2.3 mg/dL (1.6-2.3); Sodium 134 mmol/L (137-145)
[2023-05-23 06:49] LABS: Vancomycin Trough 14.6 ug/mL (10.0-20.0)
[2023-05-23 07:41] LABS: Band Neutrophils Percent 14 % (0-6); Lymphocytes Absolute Manual 1.17 K/mm3 (1.1-4.5); Monocytes Absolute Manual 0.94 K/mm3 (0.1-0.90); Monocytes Percent Manual 4 % (3-9); Neutrophils Absolute Manual 21.38 K/mm3 (1.3-6.7); Neutrophils Percent Manual 77 % (46-73); Platelet Clumps Present; Platelet Estimate Adequate (Adequate); Schistocytes None Seen (NORMAL); Total Cells Counted 100
[2023-05-23] MEDS: FLUTICASONE/SALMETEROL 230-21 MCG INHALER 1 PUFF 2 PUFF INHALATION ×2 (08:38→21:14)
[2023-05-23] MEDS: ASPIRIN 81 MG CHEWABLE TABLET PO (08:48)
[2023-05-23] MEDS: METOPROLOL TARTRATE 50 MG TAB PO ×2 (08:48→20:31)
[2023-05-23] MEDS: lisinopriL 20 MG TABLET PO (08:48)
[2023-05-23] MEDS: DOCOSANOL 10% CREAM 2 GM 1 APPLIC TOPICAL ×5 (08:49→20:31)
[2023-05-23] MEDS: POTASSIUM CHLORIDE 20 MEQ PACKET (FOR LIQUID) 40 MEQ PO (08:50)
--- NOTE | 2023-05-23 10:11 | PM.PNORT ---
Progress Note: A&P Assessment and Plan (1) Septic arthritis of shoulder, right: Qualifiers: Septic arthritis organism: due to unspecified organism Qualified Code(s): M00.9 - Pyogenic arthritis, unspecified Code(s): M00.9 - Pyogenic arthritis, unspecified Status: Acute Assessment and Plan: POD #1 RT shoulder debridement. Overall doing better, improving. Cultures G+ cocci in shoulder and blood cx. Awaiting ID/sens. Cont IV Abx Sling- PT/OT RUE. Plan repeat blood cxs tonight for possible midline IV. Follow wbc. Subjective Subjective Date/Time Seen: 05/23/23 10:11 Post Op day: 1 Principal diagnosis: RT shoulder sepsis Interval history: POD 1 rt shoulder debridement. Pt states pain better overnight. No new complaints. Denies N/T Review of Systems Constitutional: Constitutional: Denies fever(s) Eyes: Eyes: Denies blurry vision ENT: Reports Normal hearing present Cardiovascular: Cardiovascular: Denies chest pain and Denies dyspnea Respiratory: Respiratory: Denies dyspnea and Denies wheezing Gastrointestinal: Gastrointestinal: Denies abdominal pain Genitourinary: Genitourinary: Denies urinary urgency Musculoskeletal: Musculoskeletal: Reports as per HPI and Denies numbness Integumentary/Breasts: Skin/Breast: Denies changing lesions and Denies sores Neurologic: Reports Normal hearing present, Denies behavioral changes, Denies confusion, Denies numbness and Denies convulsions Psychiatric: Psychiatric: Denies behavioral changes, Denies confusion and Denies hallucinations Endocrine: Endocrine: Denies heat intolerance Hematologic/Lymphatic: Hematologic/Lymphatic: Denies easy bleeding Allergic/Immunologic: Allergic/Immunologic: Denies wheezing Exam Const: General: comfortable; No acute distress Resp: Effort & Inspection: normal respiratory effort and no audible wheezes Extrem: Right upper extremity: shoulder/upper arm abnormal ROM (limited secondary to surgery) and other (Incisions clean and dry. Mild swelling. Erythema improved.) and Extremity exam: right hand normal capillary refill, neurosensory exam normal radial nerve sensory function normal, ulnar nerve sensory function normal, median nerve sensory function normal and digital nerve sensory function normal, tendon exam normal of all digits, vascular exam radial pulse present and normal capillary refill, normal ROM of fingers and no swelling Right lower extremity: lower leg ( Negative Homans sign), ankle Details: normal ROM ( dorsiflexion and plantar flexion intact) and foot Details: vascular exam Details: dorsalis pedis pulse present and normal capillary refill, tendon exam Details: active flexion normal and active extension normal and motor-sensory exam Details: light-touch normal Location: in all toes; no edema Left lower extremity: normal to inspection, ankle Details: normal ROM and foot Details: vascular exam Details: dorsalis pedis pulse present and normal capillary refill and motor-sensory exam light-touch normal in all toes; no edema Objective Data Vital Signs Vital Signs: Vital Signs - 24 hr 05/22/23 11:25 05/22/23 11:40 05/22/23 11:50 Temperature 98.2 F Pulse Rate 86 86 87 Respiratory Rate 14 18 25 H Blood Pressure 107/68 112/65 118/69 Pulse Oximetry 97 100 100 Oxygen Delivery Simple Face Mask Simple Face Mask Simple Face Mask Oxygen Flow Rate 6 6 10 Fraction of Inspired Oxygen 05/22/23 11:55 05/22/23 12:05 05/22/23 12:20 Temperature Pulse Rate 93 94 94 Respiratory Rate 18 18 16 Blood Pressure 133/69 125/69 122/68 Pulse Oximetry 99 97 99 Oxygen Delivery Nasal Cannula Nasal Cannula Nasal Cannula Oxygen Flow Rate 2 2 2 Fraction of Inspired Oxygen 05/22/23 12:35 05/22/23 13:15 05/22/23 13:29 Temperature 97.6 F 97.9 F Pulse Rate 92 94 98 Respiratory Rate 23 H 16 20 Blood Pressure 122/67 137/64 142/65 H Pulse Oximetry 99 100 100 Oxygen Delivery Nasal Cannula Oxygen Flow Rate 2
--- NOTE | 2023-05-23 11:16 | P.PNAN_ITS ---
Anes - Prog Note Post-Op Date/Time: 05/23/23 11:16 Cardiovascular status: normal Respiratory status: normal Airway patency: baseline Mental status: baseline Post-Op hydration status: normal Vital Signs: Last Vital Signs Temp 99.5 F 05/23/23 08:00 Pulse 110 H 05/23/23 08:48 Resp 20 05/23/23 08:41 BP 112/70 05/23/23 08:00 Pulse Ox 94 05/23/23 08:41 O2 Del Method Room Air 05/23/23 08:41 O2 Flow Rate 2 05/22/23 12:35 FiO2 21 05/23/23 08:41 Pain Score (VAS): 0 I/O: Intake & Output 05/22/23 05/23/23 05/23/23 23:59 07:59 15:59 Intake Total 100 250 740 Balance 100 250 740 Laboratory Tests 05/23/23 05:47 05/23/23 05:47 05/23/23 05:47 WBC 23.5 H RBC 4.36 L Hgb 12.8 L Hct 39.5 L MCV 90.6 MCH 29.4 MCHC 32.4 RDW 13.4 Plt Count 276 MPV 9.6 Immature Gran % (Auto) Not Reportable Neut % (Auto) Not Reportable Lymph % (Auto) Not Reportable [place] % (Auto) Not Reportable Eos % (Auto) Not Reportable Baso % (Auto) Not Reportable Lymph # (Auto) Not Reportable [place] # (Auto) Not Reportable Eos # (Auto) Not Reportable Baso # (Auto) Not Reportable Abs Immat Gran (auto) Not Reportable Absolute Neuts (auto) Not Reportable Absolute Nucleated RBC Not Reportable Total Counted 100 Neutrophils % (Manual) 77 H Band Neutrophils % 14 H Lymphocytes % (Manual) 5.0 L Monocytes % (Manual) 4 Nucleated RBC % Not Reportable Abs Neuts (Manual) 21.38 H Abs Lymphs (Manual) 1.17 Abs Monocytes (Manual) 0.94 H Platelet Estimate Adequate Clumped Platelets Present Schistocytes None seen Sodium 134 L Potassium 3.0 L Chloride 97 L Carbon Dioxide 32 H Anion Gap 5 L BUN 16 Creatinine 1.20 Estim Creat Clear Calc 70 Estimated GFR > 60 Glucose 140 H Calcium 8.1 L Magnesium 2.3 Total Bilirubin 0.6 AST 102 H ALT 81 H Alkaline Phosphatase 113 Total Protein 6.0 L Albumin 3.2 L Vancomycin Trough 14.6 Microbiology 05/21/23 16:57 Nasopharynx MRSA Culture - Final 05/21/23 06:10 Blood Blood Culture - Preliminary Gram positive cocci in chains 05/21/23 15:33 Shoulder Right Anaerobic Culture - Preliminary Post-procedural complaints: none Patient Feedback: Patient satisfied with anesthetic care.
--- NOTE | 2023-05-23 14:52 | PM.IMPN ---
Progress Note: A&P Assessment and Plan (1) Sepsis: Code(s): A41.9 - Sepsis, unspecified organism Status: Acute Assessment and Plan: The patient presents with fever and tachycardia. He had elevated WBC consistent with sepsis from septic arthritis of the right shoulder. He had fevers for about 24hours before the shoulder pain started. Lactic acid was normal. Blood pressures have been stable. BCx 05/21 growing Strept pneumoniae. Right shoulder synovial gram stain (05/21) positive for many WBCs and moderate GPC. Wound culture 05/21 also growing Strept pneumoniae. He was started on empiric ceftriaxone 2 mg Q 24 hours and vancomycin. Surface Echo showing EF 60-65% and mild MR but no vegetations. May need ERIN if persistent bacteremia. He will need repeat BCx but would wait given the elevated WBC and fevers. PharmD ID consulted. Repeat BCs tomorrow if WBC trending down and fevers resolved. (2) Septic arthritis of shoulder, right: Qualifiers: Septic arthritis organism: due to unspecified organism Qualified Code(s): M00.9 - Pyogenic arthritis, unspecified Code(s): M00.9 - Pyogenic arthritis, unspecified Status: Acute Assessment and Plan: The patient presented to the emergency department for evaluation of continued fever and right shoulder pain and found to have sepsis from right shoulder septic joint. Synovial fluid and blood cultures positive for Strept. MRI of the right shoulder 05/21 shows a full-thickness rotator cuff tear and findings which could be consistent with septic arthritis and associated septic bursitis. Patient taken to the OR 05/22 for septic arthritis. He was found to have inflammatory changes of the glenohumeral joint and biceps tendon, a degenerative type labral tear and rotator cuff supraspinatus tear without retraction.?He had inflammatory changes in subacromial space. Appreciate ortho input. Continue wound care. (3) Hypokalemia: Code(s): E87.6 - Hypokalemia Status: Acute Assessment and Plan: Potassium was low on admission. Not on diuretics. Mag 2.3. Replace and monitor. (4) Essential hypertension: Code(s): I10 - Essential (primary) hypertension Status: Acute Assessment and Plan: Patient's blood pressure was reviewed on 05/23 Blood pressure remains well controlled. Will continue to monitor (5) Coronary artery disease: Code(s): I25.10 - Atherosclerotic heart disease of [place] coronary artery without angina pectoris Status: Acute Assessment and Plan: No complaints of chest pain. Continue Lipitor, ASA and metoprolol (6) Elevated LFTs: Code(s): R79.89 - Other specified abnormal findings of blood chemistry Status: Acute Assessment and Plan: On 05/19, patient noted to have elevated LFTs with hyperbili. Acetaminophen level <10. Repeat levels were much better and almost completely normal. Influenza, RSV and COVID negative on 05/21. LFTs higher again today. Will follow. Okay to continue Lipitor. Plan Cold sores - Abreva DVT Prophylaxis - SCDs Code status - Full Subjective Date/time seen: 05/23/23 14:52 Interval history: 62yo male with CAD, HTN and HLD here for fevers and right shoulder pain. Pain controlled. No CP or SOB. No n/v. Exam Narrative: Tm 100.3 144/76 100 20 97% ra Gen - NARD sitting up in chair HEENT - multiple dried cold sores noted to the lips Chest - few basilar crackles o/w clear. CV - tachycardic, regular. Abd - Soft, NT/ND, Positive BS Ext - trace pedal edema. Right shoulder incisions clean, dry and intact. Psych - Nml mood and affect Skin - warm and erythematous patch right upper arm Objective Data Vital Signs Vital Signs: Vital Signs - 24 hr 05/22/23 15:00 05/22/23 16:00 05/22/23 21:26 Temperature 99.2 F Pulse Rate 104 H 109 H 112 H Respiratory Rate 20 20 Blood Pressure 120/60 Pulse Oximetry 94 94 Oxygen Delivery
[2023-05-23] MEDS: cefTRIAXone 2 GM/NS 100 ML 2 GM/100 ML BAG IVPB (17:55)
[2023-05-23] MEDS: ATORVASTATIN 40 MG TABLET PO (20:30)
[2023-05-24] VITALS (9 sets, daily range): BP systolic 147–156; BP diastolic 76–81; PULSE 88–107; RESP 20; TEMP 36.3–36.8; O2SAT 95–98
[2023-05-24] MEDS: HYDROcodone/acetaminophen (*CRX) 5-325 MG TABLET 1 TAB PO ×4 (01:42→23:17)
[2023-05-24] MEDS: FLUTICASONE/SALMETEROL 230-21 MCG INHALER 1 PUFF 2 PUFF INHALATION (07:25)
[2023-05-24 07:44] LABS: Alanine Aminotransferase 187 U/L (6-50); Albumin Level 3.2 g/dL (3.5-5.1); Alkaline Phosphatase 114 U/L (38-126); Anion Gap 9 mmol/L (8-16); Aspartate Amino Transferase 265 U/L (17-59); Bilirubin,Total 0.5 mg/dL (0.2-1.3); Blood Urea Nitrogen 17 mg/dL (9-20); Calcium 8.3 mg/dL (8.4-10.2); Carbon Dioxide 31 mmol/L (22-30); Chloride 94 mmol/L (98-107); Estimated CRCL calculation 85 ml/min; Estimated Glomerular Filt Rate > 60; Glucose 149 mg/dL (65-110); Potassium 2.6 mmol/L (3.4-5.0); Sodium 134 mmol/L (137-145)
[2023-05-24 08:04] LABS: Basophils Absolute Auto 0.1 K/mm3 (0.0-0.1); Basophils Percent Auto 0.2 % (0.2-1.2); Eosinophils Absolute Auto 0.1 K/mm3 (0-0.3); Eosinophils Percent Auto 0.5 % (0-4.4); Hematocrit 36.9 % (42.0-52.0); Hemoglobin 11.9 g/dL (14.0-18.0); Immature Granulocyte Absolute 0.33 K/mm3 (0.00-0.031); Immature Granulocyte Percent A 1.6 % (0-0.5); Lymphocytes Absolute Auto 1.22 K/mm3 (0.9-3.2); Lymphocytes Percent Auto 5.8 % (18.3-44.2); Mean Corpuscular HGB Conc 32.2 g/dl (32-36); Mean Corpuscular Volume 89.8 fl (80-100); Mean Platelet Volume 9.8 fl (7.4-10.4); Monocytes Absolute Auto 0.8 K/mm3 (0.1-0.6); Monocytes Percent Auto 3.7 % (2.6-8.5); Neutrophils Absolute Auto 18.6 K/mm3 (1.3-6.7); Neutrophils Percent Auto 88.2 % (45.5-73.1); Platelet Count Result 284 k/mm3 (150-375); Red Blood Count 4.11 M/mm3 (4.6-6.20); White Blood Count 21.1 K/mm3 (4.5-10.0)
[2023-05-24] MEDS: ASPIRIN 81 MG CHEWABLE TABLET PO (08:22)
[2023-05-24] MEDS: lisinopriL 20 MG TABLET PO (08:24)
[2023-05-24] MEDS: METOPROLOL TARTRATE 50 MG TAB PO ×2 (08:24→21:05)
[2023-05-24] MEDS: POTASSIUM CHLORIDE 20 MEQ ER TABLET 40 MEQ PO (08:28)
[2023-05-24 08:38] LABS: Magnesium 2.3 mg/dL (1.6-2.3)
[2023-05-24] MEDS: POTASSIUM CHLORIDE 20 MEQ ER TABLET PO (09:36)
[2023-05-24] MEDS: DOCOSANOL 10% CREAM 2 GM 1 APPLIC TOPICAL ×5 (09:37→21:04)
--- NOTE | 2023-05-24 12:37 | PM.PNORT ---
Progress Note: A&P Assessment and Plan (1) Septic arthritis of shoulder, right: Qualifiers: Septic arthritis organism: due to unspecified organism Qualified Code(s): M00.9 - Pyogenic arthritis, unspecified Code(s): M00.9 - Pyogenic arthritis, unspecified Status: Acute Assessment and Plan: POD #2 RT shoulder debridement. Overall doing better, improving. Cultures Strep pneu. Awaiting sens. Cont IV Abx Sling- PT/OT RUE. Wbc slightly improved. Subjective Subjective Date/Time Seen: 05/24/23 12:37 Post Op day: 2 Principal diagnosis: RT shoulder sepsis Interval history: Feels a little better today. No new complaints. Fever yesterday. Exam Const: General: healthy appearing and comfortable; No acute distress, in distress or confusion Orientation/consciousness: oriented to person, oriented to place and oriented to time HENMT: Head: normal to inspection, normocephalic and atraumatic Neck: Neck: supple and nontender Resp: Effort & Inspection: normal respiratory effort and no audible wheezes Cardio: Rate: regular rate Rhythm: regular rhythm Extrem: Right upper extremity: shoulder/upper arm abnormal ROM (limited secondary to surgery) pain with active ROM in ABduction, in flexion and in internal rotation and pain with passive ROM with internal rotation and external rotation- and other (Incisions clean and dry. Mild swelling. Erythema improved.), elbow/forearm normal ROM; no tenderness and no swelling, wrist normal ROM and radial pulse present; no tenderness and Extremity exam: right hand normal capillary refill, neurosensory exam normal radial nerve sensory function normal, ulnar nerve sensory function normal, median nerve sensory function normal and digital nerve sensory function normal, tendon exam normal of all digits, vascular exam radial pulse present and normal capillary refill, normal ROM of fingers and no swelling; abnormal to inspection Left upper extremity: normal to inspection and shoulder/upper arm normal ROM (FF 130, Abd 125, ER 70, IR T7); no tenderness, no swelling, no ecchymosis and no crepitus Right lower extremity: normal to inspection, lower leg ( Negative Homans sign), ankle Details: normal ROM ( dorsiflexion and plantar flexion intact) and foot Details: vascular exam Details: dorsalis pedis pulse present and normal capillary refill, tendon exam Details: active flexion normal and active extension normal and motor-sensory exam Details: light-touch normal Location: in all toes; no edema Left lower extremity: normal to inspection, ankle Details: normal ROM and foot Details: vascular exam Details: dorsalis pedis pulse present and normal capillary refill and motor-sensory exam light-touch normal in all toes; no edema Psych: Affect: normal affect Objective Data Vital Signs Vital Signs: Vital Signs - 24 hr 05/23/23 14:07 05/23/23 20:31 05/23/23 21:49 Temperature 98.6 F Pulse Rate 100 84 Respiratory Rate 20 Blood Pressure 129/69 Pulse Oximetry 97 Oxygen Delivery Room Air 05/23/23 20:00 05/24/23 05:00 05/24/23 08:24 Temperature 98.3 F Pulse Rate 97 107 H Respiratory Rate 20 Blood Pressure 154/78 H Pulse Oximetry 95 Oxygen Delivery Room Air 05/24/23 08:02 Temperature Pulse Rate 100 Respiratory Rate Blood Pressure Pulse Oximetry Oxygen Delivery Intake/Output Intake/Output: Intake & Output 05/21/23 05/22/23 05/23/23 05/24/23 23:59 23:59 23:59 23:59 Intake Total 2840 2000 2948 890 Output Total 1750 1600 Balance 2669 819 2120 890 Meds/Results Medications: Active Medications Generic Name Dose Route Start Last Admin Trade Name Freq PRN Reason Stop Dose Admin Acetaminophen 650 mg 05/21/23 09:51 05/21/23 10:11 Acetaminophen 325 Mg Tablet PO 650 mg Q6H PRN Administration Mild Pain (1-3) or Fever Hydrocodone Bitart/Acetaminophen 1 tab 05/21/23 17:24 05/24/23 01:42 Hydrocodone/Acetaminophen (*Crx) 5-325 M
[2023-05-24] MEDS: ONDANSETRON INJ 4 MG/2 ML VIAL IV PUSH (12:48)
--- NOTE | 2023-05-24 13:36 | PM.IMPN ---
Progress Note: A&P Assessment and Plan (1) Sepsis: Code(s): A41.9 - Sepsis, unspecified organism Status: Acute Assessment and Plan: The patient presents with fever and tachycardia. He had elevated WBC consistent with sepsis from septic arthritis of the right shoulder. He had fevers for about 24hours before the shoulder pain started. Lactic acid was normal. Blood pressures have been stable. BCx 05/21 growing Strept pneumoniae. Right shoulder synovial gram stain (05/21) positive for many WBCs and moderate GPC. Wound culture 05/21 also growing Strept pneumoniae. He was started on empiric ceftriaxone 2 mg Q 24 hours and vancomycin. Surface Echo showing EF 60-65% and mild MR but no vegetations. May need ERIN if persistent bacteremia. Repeat BCx drawn 05/23. PharmD ID consulted. Follow up on repeat BCx. Monitor WBC and temp curve (2) Septic arthritis of shoulder, right: Qualifiers: Septic arthritis organism: due to unspecified organism Qualified Code(s): M00.9 - Pyogenic arthritis, unspecified Code(s): M00.9 - Pyogenic arthritis, unspecified Status: Acute Assessment and Plan: The patient presented to the emergency department for evaluation of continued fever and right shoulder pain and found to have sepsis from right shoulder septic joint. Synovial fluid and blood cultures positive for Strept. MRI of the right shoulder 05/21 shows a full-thickness rotator cuff tear and findings which could be consistent with septic arthritis and associated septic bursitis. Patient taken to the OR 05/22 for septic arthritis. He was found to have inflammatory changes of the glenohumeral joint and biceps tendon, a degenerative type labral tear and rotator cuff supraspinatus tear without retraction.?He had inflammatory changes in subacromial space. Appreciate ortho input. Continue wound care. (3) Hypokalemia: Code(s): E87.6 - Hypokalemia Status: Acute Assessment and Plan: Potassium was low on admission and replacement ordered. Potassium low again today. Not on diuretics. Mag 2.3. Replace and monitor. Check urine studies. (4) Essential hypertension: Code(s): I10 - Essential (primary) hypertension Status: Acute Assessment and Plan: Patient's blood pressure was reviewed on 05/24 Blood pressure remains well controlled. Will continue to monitor (5) Coronary artery disease: Code(s): I25.10 - Atherosclerotic heart disease of [place] coronary artery without angina pectoris Status: Acute Assessment and Plan: No complaints of chest pain. Continue Lipitor, ASA and metoprolol (6) Elevated LFTs: Code(s): R79.89 - Other specified abnormal findings of blood chemistry Status: Acute Assessment and Plan: On 05/19, patient noted to have elevated LFTs with hyperbili. Acetaminophen level <10. Repeat levels on admission were much better and almost completely normal. Influenza, RSV and COVID negative on 05/21. LFTs higher again today but bili okay. Hold Lipitor. Check RUQ US. Check hepatitis panel. Follow Plan Cold sores - Abreva DVT Prophylaxis - SCDs Code status - Full Subjective Date/time seen: 05/24/23 13:36 Interval history: 62yo male with CAD, HTN and HLD here for fevers and right shoulder pain. Pain reasonable. Feels nauseous today around lunch that was acute onset (Vanco running at this time). Improved ROM. Exam Narrative: AF 98.3 154/78 107 20 95% ra Gen - NARD sitting up in chair HEENT - multiple dried cold sores noted to the lips Chest - bibasilar crackles o/w clear. CV - RRR S1/S2 Abd - Soft, obese, NT Ext - trace pedal edema. Right shoulder incisions clean, dry and intact. Psych - Nml mood and affect Skin - warm and erythematous patch right upper arm that is decreased in size Objective Data Vital Signs Vital Signs: Vital Signs - 24 hr 05/23/23 14:07 05/23/23 20:31 05/23/23 21:49 Temperature
[2023-05-24 15:50] LABS: Hepatitis B Surface Antigen Negative (Negative)
--- NOTE | 2023-05-24 15:54 | PC.NURSE ---
Pt has been in his room most of the day. Pt worked with therapy and walked in the halls. Pt was able to assist in his dressing and undressing with therapy. Pt has reported pain and it was treated with PO pain medication. Pt reported some nausea and was treated with zofran. Will continue to monitor pt.
[2023-05-24 15:56] LABS: HAV RESULT Negative (Negative); Hepatitis B Core IgM Result Negative (Negative)
[2023-05-24 16:08] LABS: Hepatitis C Virus Antibody Negative (Negative)
[2023-05-24] MEDS: cefTRIAXone 2 GM/NS 100 ML 2 GM/100 ML BAG IVPB (16:55)
[2023-05-25] VITALS (13 sets, daily range): BP systolic 153–173; BP diastolic 66–85; PULSE 84–100; RESP 16–20; TEMP 36.2–37.4; O2SAT 95–99
[2023-05-25] MEDS: HYDROcodone/acetaminophen (*CRX) 5-325 MG TABLET 1 TAB PO (05:37)
[2023-05-25 06:24] LABS: Glucose Synovial Fluid <10 mg/dL
[2023-05-25 06:30] LABS: Basophils Percent Auto 0.3 % (0.2-1.2); Eosinophils Absolute Auto 0.1 K/mm3 (0-0.3); Eosinophils Percent Auto 0.8 % (0-4.4); Hematocrit 35.6 % (42.0-52.0); Hemoglobin 11.6 g/dL (14.0-18.0); Immature Granulocyte Absolute 0.31 K/mm3 (0.00-0.031); Lymphocytes Absolute Auto 1.34 K/mm3 (0.9-3.2); Lymphocytes Percent Auto 8.8 % (18.3-44.2); Mean Corpuscular HGB Conc 32.6 g/dl (32-36); Mean Corpuscular Hemoglobin 29.1 pg (26-34); Mean Corpuscular Volume 89.4 fl (80-100); Mean Platelet Volume 9.4 fl (7.4-10.4); Monocytes Absolute Auto 0.8 K/mm3 (0.1-0.6); Monocytes Percent Auto 5.4 % (2.6-8.5); Neutrophils Absolute Auto 12.7 K/mm3 (1.3-6.7); Neutrophils Percent Auto 82.7 % (45.5-73.1); Platelet Count Result 239 k/mm3 (150-375); Red Blood Count 3.98 M/mm3 (4.6-6.20); Red Cell Distribution Width 12.8 % (11.5-14.5); White Blood Count 15.3 K/mm3 (4.5-10.0)
[2023-05-25 06:39] LABS: Alanine Aminotransferase 293 U/L (6-50); Alkaline Phosphatase 100 U/L (38-126); Anion Gap 3 mmol/L (8-16); Aspartate Amino Transferase 294 U/L (17-59); Bilirubin,Total 0.4 mg/dL (0.2-1.3); Blood Urea Nitrogen 15 mg/dL (9-20); Carbon Dioxide 32 mmol/L (22-30); Chloride 97 mmol/L (98-107); Estimated CRCL calculation 85 ml/min; Estimated Glomerular Filt Rate > 60; Glucose 127 mg/dL (65-110); Potassium 2.5 mmol/L (3.4-5.0); Sodium 132 mmol/L (137-145)
[2023-05-25] MEDS: ASPIRIN 81 MG CHEWABLE TABLET PO (08:16)
[2023-05-25] MEDS: lisinopriL 20 MG TABLET PO (08:16)
[2023-05-25] MEDS: METOPROLOL TARTRATE 50 MG TAB PO ×2 (08:17→22:19)
[2023-05-25] MEDS: POTASSIUM CHLORIDE 20 MEQ ER TABLET 40 MEQ PO (08:17)
[2023-05-25] MEDS: DOCOSANOL 10% CREAM 2 GM 1 APPLIC TOPICAL ×4 (08:21→21:31)
[2023-05-25] MEDS: FLUTICASONE/SALMETEROL 230-21 MCG INHALER 1 PUFF 2 PUFF INHALATION ×2 (08:56→20:16)
--- NOTE | 2023-05-25 11:07 | PM.PNORT ---
Progress Note: A&P Assessment and Plan (1) Septic arthritis of shoulder, right: Qualifiers: Septic arthritis organism: due to unspecified organism Qualified Code(s): M00.9 - Pyogenic arthritis, unspecified Code(s): M00.9 - Pyogenic arthritis, unspecified Status: Acute Assessment and Plan: POD #2: RT Shoulder Debridement Initial blood cultures and synovial fluid cultures reveal Streptococcus pneumoniae. Sensitivities available. Pharm ID consulted and following for recommendations for outpatient IV antibiotics. Appreciate recommendations. PICC line pending new blood cultures. New blood cultures drawn / PM with NGTD. Continue sling for comfort. Patient still with erythema of the biceps muscle. Will obtain RUE MRI for further evaluation to rule out abscess. Ice as needed. Incisions well approximated with Dermabond. No drainage. PT/OT, active/passive ROM as tolerated of the RUE. Dispo: Home with Home Infusion pending medical stability, UE MRI, IV antibiotics decision and PICC line. Subjective Subjective Date/Time Seen: 05/25/23 11:07 Post Op day: 3 Principal diagnosis: RT shoulder sepsis Interval history: Pain right shoulder well controlled. Concerns about discharge planning. Review of Systems Constitutional: Constitutional: Denies fever(s) Eyes: Eyes: Denies blurry vision ENT: Reports Normal hearing present Cardiovascular: Cardiovascular: Denies chest pain and Denies dyspnea Respiratory: Respiratory: Denies dyspnea and Denies wheezing Gastrointestinal: Gastrointestinal: Denies abdominal pain Genitourinary: Genitourinary: Denies urinary urgency Musculoskeletal: Musculoskeletal: Reports as per HPI and Denies numbness Integumentary/Breasts: Skin/Breast: Denies changing lesions and Denies sores Neurologic: Reports Normal hearing present, Denies behavioral changes, Denies confusion, Denies numbness and Denies convulsions Psychiatric: Psychiatric: Denies behavioral changes, Denies confusion and Denies hallucinations Endocrine: Endocrine: Denies heat intolerance Hematologic/Lymphatic: Hematologic/Lymphatic: Denies easy bleeding Allergic/Immunologic: Allergic/Immunologic: Denies wheezing Exam Const: General: healthy appearing and comfortable; No acute distress, in distress or confusion Orientation/consciousness: oriented to person, oriented to place and oriented to time HENMT: Head: normal to inspection, normocephalic and atraumatic Neck: Neck: supple and nontender Resp: Effort & Inspection: normal respiratory effort and no audible wheezes Cardio: Rate: regular rate Rhythm: regular rhythm Extrem: Right upper extremity: shoulder/upper arm abnormal ROM (limited secondary to surgery) pain with active ROM in ABduction, in flexion and in internal rotation and pain with passive ROM with internal rotation and external rotation- and other (Incisions clean and dry. Mild swelling. Erythema improved.), elbow/forearm normal ROM; no tenderness and no swelling, wrist normal ROM and radial pulse present; no tenderness and Extremity exam: right hand normal capillary refill, neurosensory exam normal radial nerve sensory function normal, ulnar nerve sensory function normal, median nerve sensory function normal and digital nerve sensory function normal, tendon exam normal of all digits, vascular exam radial pulse present and normal capillary refill, normal ROM of fingers and no swelling; abnormal to inspection Left upper extremity: normal to inspection and shoulder/upper arm normal ROM (FF 130, Abd 125, ER 70, IR T7); no tenderness, no swelling, no ecchymosis and no crepitus Right lower extremity: normal to inspection, lower leg ( Negative Homans sign), ankle Details: normal ROM ( dorsiflexion and plantar flexion intact) and foot Details: vascular exam Details: dorsalis pedis pulse present and normal capillary refill, tendon exam Details: active flexion normal and active extension normal and mot
--- NOTE | 2023-05-25 11:16 | PM.IMPN ---
Progress Note: A&P Assessment and Plan (1) Sepsis: Code(s): A41.9 - Sepsis, unspecified organism Status: Acute Assessment and Plan: The patient presents with fever and tachycardia. He had elevated WBC consistent with sepsis from septic arthritis of the right shoulder. He had fevers for about 24hours before the shoulder pain started. Lactic acid was normal. Blood pressures have been stable. BCx 05/21 growing Strept pneumoniae sensitive to ceftriaxone. Right shoulder synovial gram stain (05/21) positive for many WBCs and moderate GPC. Wound culture 05/21 also growing Strept pneumoniae sensitive to ceftriaxone. He was started on empiric ceftriaxone 2 mg Q 24 hours and vancomycin. Surface Echo showing EF 60-65% and mild MR but no vegetations. May need ERIN if persistent bacteremia but follow up BCx (05/23) remain negative. WBC trending down. PharmD ID consulted. Follow up on repeat BCx. Monitor WBC and temp curve. Stop Vanco. (2) Septic arthritis of shoulder, right: Qualifiers: Septic arthritis organism: due to unspecified organism Qualified Code(s): M00.9 - Pyogenic arthritis, unspecified Code(s): M00.9 - Pyogenic arthritis, unspecified Status: Acute Assessment and Plan: The patient presented to the emergency department for evaluation of continued fever and right shoulder pain and found to have sepsis from right shoulder septic joint. Synovial fluid and blood cultures positive for Strept. MRI of the right shoulder 05/21 shows a full-thickness rotator cuff tear and findings which could be consistent with septic arthritis and associated septic bursitis. Patient taken to the OR 05/22 for septic arthritis. He was found to have inflammatory changes of the glenohumeral joint and biceps tendon, a degenerative type labral tear and rotator cuff supraspinatus tear without retraction.?He had inflammatory changes in subacromial space. Appreciate ortho input. Continue wound care. (3) Hypokalemia: Code(s): E87.6 - Hypokalemia Status: Acute Assessment and Plan: Potassium was low on admission and replacement ordered. Potassium low again today. Not on diuretics. Mag was 2.3. Replace and monitor. Repeat levels later today. (4) Essential hypertension: Code(s): I10 - Essential (primary) hypertension Status: Acute Assessment and Plan: Patient's blood pressure was reviewed on 05/25 Blood pressure higher overnight and this morning. Will continue to monitor for now (5) Coronary artery disease: Code(s): I25.10 - Atherosclerotic heart disease of [place] coronary artery without angina pectoris Status: Acute Assessment and Plan: No complaints of chest pain. Continue ASA and metoprolol (6) Elevated LFTs: Code(s): R79.89 - Other specified abnormal findings of blood chemistry Status: Acute Assessment and Plan: On 05/19, patient noted to have elevated LFTs with hyperbili. Acetaminophen level <10. Repeat levels on admission were much better and almost completely normal. Influenza, RSV and COVID negative on 05/21. LFTs have been climbing since admission here. Bili okay. Hepatitis panel negative. Lipitor on hold. RUQ US showing normal liver; GB has been removed. Normal ducts. Probably related to ths sepsis. Follow Plan Cold sores - Abreva DVT Prophylaxis - SCDs Code status - Full Subjective Date/time seen: 05/25/23 11:16 Interval history: 62yo male with CAD, HTN and HLD here for fevers and right shoulder pain. No nausea or vomiting. Eating normally. He has more pain to the right shoulder but states his range of motion is much improved. No chest pain or shortness of breath. No abdominal pain. Normal urine output. No diarrhea. Does have a dry cough. Exam Narrative: AF 97.2 173/85 87 18 95% ra Gen - NARD HEENT - multiple dried cold sores noted to the lips Chest - coarse BS bilaterally, nml RR CV - RRR S1/S2 Abd -
[2023-05-25 13:10] LABS: Acetaminophen < 10 ug/mL (10-30); Anion Gap 5 mmol/L (8-16); Blood Urea Nitrogen 15 mg/dL (9-20); Calcium 8.1 mg/dL (8.4-10.2); Carbon Dioxide 31 mmol/L (22-30); Chloride 96 mmol/L (98-107); Estimated CRCL calculation 95 ml/min; Estimated Glomerular Filt Rate > 60; Glucose 136 mg/dL (65-110); Sodium 132 mmol/L (137-145)
[2023-05-25 13:11] LABS: Creatine Kinase 76 U/L (55-170); Magnesium 2.2 mg/dL (1.6-2.3)
--- NOTE | 2023-05-25 14:02 | PCCCNOTE ---
On 05/25/23, the student, [Calista Foley], provided care and completed [facility] documentation on this patient. I have reviewed the student's documentation and agree with the findings.
[2023-05-25] MEDS: MORPHINE SULFATE (*CRX) 2 MG/ML INJ IV PUSH ×2 (16:55→21:28)
[2023-05-25] MEDS: POTASSIUM CHLORIDE 20 MEQ PACKET (FOR LIQUID) 40 MEQ PO (16:55)
[2023-05-25] MEDS: cefTRIAXone 2 GM/NS 100 ML 2 GM/100 ML BAG IVPB (18:37)
--- NOTE | 2023-05-25 19:35 | PC.NURSE ---
Pt had chest xray and MRI today. Pt receiving IV abx. Pt tolerated IV abx well. Pt reports pain in the right shoulder. Pt does not express any other needs at this time. Pt monitored for any changes in status.
[2023-05-26] VITALS (13 sets, daily range): BP systolic 129–159; BP diastolic 67–87; PULSE 68–98; RESP 16–20; TEMP 36.1–36.7; O2SAT 95–97
[2023-05-26 06:15] LABS: Basophils Absolute Auto 0.1 K/mm3 (0.0-0.1); Basophils Percent Auto 0.5 % (0.2-1.2); Eosinophils Absolute Auto 0.1 K/mm3 (0-0.3); Eosinophils Percent Auto 0.6 % (0-4.4); Hematocrit 36.5 % (42.0-52.0); Immature Granulocyte Absolute 0.43 K/mm3 (0.00-0.031); Immature Granulocyte Percent A 2.5 % (0-0.5); Lymphocytes Absolute Auto 1.58 K/mm3 (0.9-3.2); Lymphocytes Percent Auto 9.2 % (18.3-44.2); Mean Corpuscular HGB Conc 32.9 g/dl (32-36); Mean Corpuscular Hemoglobin 28.7 pg (26-34); Mean Corpuscular Volume 87.3 fl (80-100); Mean Platelet Volume 9.3 fl (7.4-10.4); Monocytes Absolute Auto 0.9 K/mm3 (0.1-0.6); Monocytes Percent Auto 5.5 % (2.6-8.5); Neutrophils Absolute Auto 14.1 K/mm3 (1.3-6.7); Neutrophils Percent Auto 81.7 % (45.5-73.1); Platelet Count Result 262 k/mm3 (150-375); Red Blood Count 4.18 M/mm3 (4.6-6.20); Red Cell Distribution Width 12.6 % (11.5-14.5); White Blood Count 17.2 K/mm3 (4.5-10.0)
[2023-05-26 06:32] LABS: Alanine Aminotransferase 273 U/L (6-50); Albumin Level 3.1 g/dL (3.5-5.1); Alkaline Phosphatase 87 U/L (38-126); Anion Gap 4 mmol/L (8-16); Aspartate Amino Transferase 181 U/L (17-59); Bilirubin,Total 0.5 mg/dL (0.2-1.3); Blood Urea Nitrogen 14 mg/dL (9-20); Calcium 8.2 mg/dL (8.4-10.2); Carbon Dioxide 35 mmol/L (22-30); Chloride 95 mmol/L (98-107); Estimated CRCL calculation 95 ml/min; Estimated Glomerular Filt Rate > 60; Glucose 135 mg/dL (65-110); Magnesium 2.1 mg/dL (1.6-2.3); Potassium 2.8 mmol/L (3.4-5.0); Sodium 134 mmol/L (137-145)
[2023-05-26] MEDS: ASPIRIN 81 MG CHEWABLE TABLET PO (08:39)
[2023-05-26] MEDS: lisinopriL 20 MG TABLET PO (08:39)
[2023-05-26] MEDS: FLUTICASONE/SALMETEROL 230-21 MCG INHALER 1 PUFF 2 PUFF INHALATION ×2 (08:41→20:02)
[2023-05-26] MEDS: DOCOSANOL 10% CREAM 2 GM 1 APPLIC TOPICAL ×4 (08:42→20:09)
[2023-05-26] MEDS: POTASSIUM CHLORIDE 20 MEQ ER TABLET 40 MEQ PO ×2 (08:44→13:40)
[2023-05-26] MEDS: oxyCODONE/ACETAMINOPHEN (*CRX) 5-325 MG TABLET 1 TABLET PO ×2 (09:31→19:42)
[2023-05-26] MEDS: METOPROLOL TARTRATE 50 MG TAB PO ×2 (09:32→20:09)
--- NOTE | 2023-05-26 12:58 | PM.PNORT ---
Progress Note: A&P Assessment and Plan (1) Septic arthritis of shoulder, right: Qualifiers: Septic arthritis organism: due to unspecified organism Qualified Code(s): M00.9 - Pyogenic arthritis, unspecified Code(s): M00.9 - Pyogenic arthritis, unspecified Status: Acute Assessment and Plan: POD #4: RT Shoulder Debridement Blood cultures and synovial fluid cultures= Streptococcus pneumoniae. Sensitivities available. Pharm ID consulted. needs central line for long-term IV antibiotic treatment. Continue sling for comfort. MRI right arm performed yesterday. Changes consistent with myositis and cellulitis. No abscess or other fluid collections. No surgical indication. Continue with IV antibiotics. PT/OT, active/passive ROM as tolerated of the RUE. Dispo: Home with Home Infusion, IV antibiotics, and PICC line. Follow up with Orthopedics in 2-3 weeks. Subjective Subjective Date/Time Seen: 05/26/23 12:58 Post Op day: 4 Principal diagnosis: RT shoulder sepsis Interval history: Pain right shoulder well controlled. some swelling in the hand. Less swelling in the arm. Exam Const: General: comfortable; No acute distress Neck: Neck: supple and nontender Resp: Effort & Inspection: normal respiratory effort and no audible wheezes Extrem: Right upper extremity: shoulder/upper arm abnormal ROM pain with active ROM in ABduction, in flexion and in internal rotation, pain with passive ROM with internal rotation and external rotation- and with range as follows ( Forward flexion 30?, abduction 30?, external rotation 20?) and other (Incisions clean and dry. Mild swelling. Erythema improved. less swelling bicep and upper arm), elbow/forearm normal ROM; no tenderness and no swelling, wrist normal ROM and radial pulse present; no tenderness and Extremity exam: right hand normal capillary refill, neurosensory exam normal radial nerve sensory function normal, ulnar nerve sensory function normal, median nerve sensory function normal and digital nerve sensory function normal, tendon exam normal of all digits, vascular exam radial pulse present and normal capillary refill, normal ROM of fingers and no swelling; abnormal to inspection Objective Data Vital Signs Vital Signs: Vital Signs - 24 hr 05/25/23 13:00 05/25/23 16:02 05/25/23 20:18 Temperature 98.4 F Pulse Rate 90 94 Respiratory Rate 20 Blood Pressure 153/66 H Pulse Oximetry 97 97 Oxygen Delivery Room Air 05/25/23 22:19 05/25/23 21:00 05/25/23 20:25 Temperature 99.3 F Pulse Rate 88 96 100 Respiratory Rate 16 Blood Pressure 167/82 H Pulse Oximetry 99 Oxygen Delivery 05/26/23 00:00 05/26/23 04:00 05/26/23 05:45 Temperature 97 F L Pulse Rate 82 83 89 Respiratory Rate 16 Blood Pressure 158/87 H Pulse Oximetry 95 Oxygen Delivery 05/26/23 08:41 05/26/23 09:32 05/26/23 08:40 Temperature Pulse Rate 97 80 Respiratory Rate 18 Blood Pressure Pulse Oximetry 95 Oxygen Delivery Room Air Room Air 05/26/23 08:00 05/26/23 12:00 Temperature Pulse Rate 89 78 Respiratory Rate Blood Pressure Pulse Oximetry Oxygen Delivery Intake/Output Intake/Output: Intake & Output 05/23/23 05/24/23 05/25/23 05/26/23 23:59 23:59 23:59 23:59 Intake Total 2948 3210 3400 2060 Balance 2948 3210 3400 2060 Meds/Results Medications: Active Medications Generic Name Dose Route Start Last Admin Trade Name Freq PRN Reason Stop Dose Admin Acetaminophen 650 mg 05/21/23 09:51 05/21/23 10:11 Acetaminophen 325 Mg Tablet PO 650 mg Q6H PRN Administration Mild Pain (1-3) or Fever Hydrocodone Bitart/Acetaminophen 1 tab 05/21/23 17:24 05/25/23 05:37 Hydrocodone/Acetaminophen (*Crx) 5-325 Mg Tablet PO 1 tab Q4H PRN Administration Pain Rated 4-6 Albuterol 2.5 mg 05/21/23 13:36 Albuterol Sulfate Neb 2.5 Mg/3 Ml Inh INHALATION Q6H PRN Wheezing
--- NOTE | 2023-05-26 13:08 | PHA.ABX.ID ---
Pharmacy ID Consult - Stewardship Interventions Type of Interventions: Discharge Recommendation Pharmacy ID Note: UPDATE: S. Pneumoniae in blood and shoulder with repeat cultures on 05/23 blood are negative. Patient is on Ceftriaxone 2g iv q24h. MRI shows possible effusion in the shoulder area - defer to providers for assessment, diagnosis, and source control. Would recommend to continue ceftriaxone 2g iv q24h until sufficient source control or oral transition is appropriate, and consider levofloxacin po 750 mg q24h adjusted for renal function if patient appropriate for fluoroquinolones. If parenteral therapy is needed consider ceftriaxone iv 2g q24h. Duration, consider 28 days from source control. Will sign off at this time. Consider reaching out or reconsultation if indication changes, additional information comes to light, infection grows more complex, or additional recommendations are needed. Microbiology 05/23/23 17:58 Blood Blood Culture - Preliminary 05/23/23 17:44 Blood Blood Culture - Preliminary 05/21/23 15:33 Shoulder Right Anaerobic Culture - Preliminary 05/21/23 15:33 Shoulder Right Aerobic Culture - Preliminary Streptococcus pneumoniae 05/21/23 06:10 Blood Blood Culture - Preliminary Streptococcus pneumoniae 05/21/23 16:57 Nasopharynx MRSA Culture - Final 05/21/23 05:02 Blood Blood Culture - Final WBC 17.2 K/mm3 (4.5-10.0) H 05/26/23 05:57 Creatinine 0.90 mg/dL (0.7-1.3) 05/26/23 05:57 Estim Creat Clear Calc 95 ml/min 05/26/23 05:57 Pharmacy ID Consult - Stewardship Interventions Type of Interventions: Other (Empiric) Pharmacy ID Note: Subjective Pharmacy was consulted by Fazal Bermudez regarding infectious diseases for Raad Childers. Raad Childers is a 62 year old M with concerns regarding [place] septic arthritis. Background The patient is currently receiving Ceftriaxone IV 2g q24h and vancomycin iv pharmacy to dose. The patient's PMH includes presenting with similar symptoms 2 days prior to admission in the ER but was unable to be tapped at the time and was recommended to return if appropriate. The patient was febrile and symptoms remain and with the assistance of MRI imaging the shoulder joint was aspirated on 05/21 and then arthroscopic washout was done today 05/22. Labs and Micro as below. Microbiology 05/21/23 15:33 Shoulder Right Anaerobic Culture - Preliminary <-- preliminary growth showing gpc in chains 05/21/23 06:10 Blood Blood Culture - Preliminary Gram positive cocci in chains 05/21/23 05:02 Blood Blood Culture - Preliminary 05/21/23 15:32 Shoulder Right Gram Stain - Final <-- many wbc's and moderate gpc's Assessment/Recommendation/Discussion Spoke briefly with Nora Jones (with the consulting provider's service) regarding this patient and discussed that most common organisms that present as chains are either streptococcus which is covered by both Ceftriaxone and Vancomycin or enterococcus which all save VRE is covered with vancomycin. If VRE can consider agents like daptomycin 8 - 10 mg/kg adjusted body weight renally dosed, linezolid, or ampicillin depending on if appropriate and sensitive. Will follow for culture results and recommended repeat cultures be obtained so blood culture clearance can be documented. Pathogen will aid in identifying duration for patient. will continue to follow. please reach out if additional information comes to light. Thank you for the interesting consult. Kristopher Collazo, PharmD Infectious Disease/Antimicrobial Stewardship Pharmacist 05/22/23; [id number]
[2023-05-26] MEDS: HYDROcodone/acetaminophen (*CRX) 5-325 MG TABLET 1 TAB PO (13:34)
--- NOTE | 2023-05-26 14:55 | PM.IMPN ---
Progress Note: A&P Assessment and Plan (1) Sepsis: Code(s): A41.9 - Sepsis, unspecified organism Status: Acute Assessment and Plan: The patient presents with fever and tachycardia. He had elevated WBC consistent with sepsis from septic arthritis of the right shoulder. He had fevers for about 24hours before the shoulder pain started. Lactic acid was normal. Blood pressures have been stable. BCx 05/21 growing Strept pneumoniae sensitive to ceftriaxone. Right shoulder synovial gram stain (05/21) positive for many WBCs and moderate GPC. Wound culture 05/21 also growing Strept pneumoniae sensitive to ceftriaxone. He was started on empiric ceftriaxone 2 mg Q 24 hours and vancomycin. Surface Echo showing EF 60-65% and mild MR but no vegetations. Follow up BCx (05/23) remain negative. WBC back up today to 17K. PharmD ID consulted. Follow up on repeat BCx. Monitor WBC and temp curve. Humerus MRI results reviewed. Repeat BCx will be 48hours this evening. Place PICC line in am if BCx remain negative for plan for IV abx at discharge. Monitor WBC (2) Septic arthritis of shoulder, right: Qualifiers: Septic arthritis organism: due to unspecified organism Qualified Code(s): M00.9 - Pyogenic arthritis, unspecified Code(s): M00.9 - Pyogenic arthritis, unspecified Status: Acute Assessment and Plan: The patient presented to the emergency department for evaluation of continued fever and right shoulder pain and found to have sepsis from right shoulder septic joint. Synovial fluid and blood cultures positive for Strept. MRI of the right shoulder 05/21 shows a full-thickness rotator cuff tear and findings which could be consistent with septic arthritis and associated septic bursitis. Patient taken to the OR 05/22 for septic arthritis. He was found to have inflammatory changes of the glenohumeral joint and biceps tendon, a degenerative type labral tear and rotator cuff supraspinatus tear without retraction.?He had inflammatory changes in subacromial space. Repeat humerus MRI results noted. No plans for repeat surgery but he will need IV abx at discharge. Appreciate ortho input. Continue wound care. (3) Hypokalemia: Code(s): E87.6 - Hypokalemia Status: Acute Assessment and Plan: Potassium was low on admission and replacement ordered. Potassium continues to run low. Not on diuretics. Mag okay. Replace and monitor. Check cortisol level and osmolality. (4) Essential hypertension: Code(s): I10 - Essential (primary) hypertension Status: Acute Assessment and Plan: Patient's blood pressure was reviewed on 05/26 Blood pressure elevated at times. Will continue to monitor (5) Coronary artery disease: Code(s): I25.10 - Atherosclerotic heart disease of [place] coronary artery without angina pectoris Status: Acute Assessment and Plan: No complaints of chest pain. Continue ASA and metoprolol (6) Elevated LFTs: Code(s): R79.89 - Other specified abnormal findings of blood chemistry Status: Acute Assessment and Plan: On 05/19, patient noted to have elevated LFTs with hyperbili. Acetaminophen level <10. Repeat levels on admission were much better and almost completely normal. Influenza, RSV and COVID negative on 05/21. Hepatitis panel negative. Lipitor on hold. RUQ US showing normal liver; GB has been removed. Normal ducts. Probably related to ths sepsis. LFTs were climbing since admission here but better today. Bili okay. Follow Plan Cold sores - Abreva DVT Prophylaxis - SCDs Code status - Full Subjective Date/time seen: 05/26/23 14:55 Interval history: 62yo male with CAD, HTN and HLD here for fevers and right shoulder pain. Feeling well. Pain no change in the right shoulder. No CP or SOB. Pain is controlled with current pain mediations. Exam Narrative: AF 98.1 129/67 87 20 97% ra Gen - NARD HEENT - resolving cold sore
[2023-05-26] MEDS: cefTRIAXone 2 GM/NS 100 ML 2 GM/100 ML BAG IVPB (16:38)
[2023-05-26 17:05] LABS: Potassium 3.1 mmol/L (3.4-5.0)
[2023-05-26 19:03] LABS: Potassium Urine Random 3.9 meq/L
[2023-05-27] VITALS (8 sets, daily range): BP systolic 103–121; BP diastolic 61–78; PULSE 81–97; RESP 16; TEMP 36.6–36.8; O2SAT 95–97
[2023-05-27] MEDS: oxyCODONE/ACETAMINOPHEN (*CRX) 5-325 MG TABLET 1 TABLET PO ×3 (01:45→17:46)
[2023-05-27 06:31] LABS: Basophils Absolute Auto 0.1 K/mm3 (0.0-0.1); Basophils Percent Auto 0.7 % (0.2-1.2); Eosinophils Absolute Auto 0.2 K/mm3 (0-0.3); Eosinophils Percent Auto 1.3 % (0-4.4); Hematocrit 36.6 % (42.0-52.0); Hemoglobin 11.8 g/dL (14.0-18.0); Immature Granulocyte Absolute 0.46 K/mm3 (0.00-0.031); Immature Granulocyte Percent A 3.3 % (0-0.5); Lymphocytes Absolute Auto 1.83 K/mm3 (0.9-3.2); Lymphocytes Percent Auto 13.3 % (18.3-44.2); Mean Corpuscular HGB Conc 32.2 g/dl (32-36); Mean Corpuscular Hemoglobin 28.6 pg (26-34); Mean Corpuscular Volume 88.6 fl (80-100); Mean Platelet Volume 9.5 fl (7.4-10.4); Monocytes Absolute Auto 0.9 K/mm3 (0.1-0.6); Monocytes Percent Auto 6.8 % (2.6-8.5); Neutrophils Absolute Auto 10.3 K/mm3 (1.3-6.7); Neutrophils Percent Auto 74.6 % (45.5-73.1); Platelet Count Result 303 k/mm3 (150-375); Red Blood Count 4.13 M/mm3 (4.6-6.20); Red Cell Distribution Width 12.6 % (11.5-14.5); White Blood Count 13.8 K/mm3 (4.5-10.0)
[2023-05-27 06:39] LABS: Alanine Aminotransferase 234 U/L (6-50); Albumin Level 3.1 g/dL (3.5-5.1); Alkaline Phosphatase 91 U/L (38-126); Anion Gap 2 mmol/L (8-16); Aspartate Amino Transferase 107 U/L (17-59); Bilirubin,Total 0.6 mg/dL (0.2-1.3); Blood Urea Nitrogen 15 mg/dL (9-20); Calcium 8.3 mg/dL (8.4-10.2); Carbon Dioxide 37 mmol/L (22-30); Chloride 95 mmol/L (98-107); Estimated CRCL calculation 86 ml/min; Estimated Glomerular Filt Rate > 60; Glucose 105 mg/dL (65-110); Magnesium 2.2 mg/dL (1.6-2.3); Potassium 3.1 mmol/L (3.4-5.0); Sodium 134 mmol/L (137-145)
[2023-05-27] MEDS: FLUTICASONE/SALMETEROL 230-21 MCG INHALER 1 PUFF 2 PUFF INHALATION (07:57)
[2023-05-27] MEDS: HYDROcodone/acetaminophen (*CRX) 5-325 MG TABLET 1 TAB PO (08:32)
[2023-05-27] MEDS: ASPIRIN 81 MG CHEWABLE TABLET PO (08:38)
[2023-05-27] MEDS: lisinopriL 20 MG TABLET PO (08:38)
[2023-05-27] MEDS: POTASSIUM CHLORIDE 20 MEQ ER TABLET 40 MEQ PO (08:38)
[2023-05-27] MEDS: DOCOSANOL 10% CREAM 2 GM 1 APPLIC TOPICAL ×3 (08:39→15:57)
[2023-05-27] MEDS: METOPROLOL TARTRATE 50 MG TAB PO (08:40)
--- NOTE | 2023-05-27 12:38 | PM.DS ---
DS: Admitting Diagnosis Discharge Date 05/27/23 Admitting Diagnosis septic arthritis DS: Discharge Diagnosis Discharge Diagnosis (1) Sepsis: Code(s): A41.9 - Sepsis, unspecified organism Status: Acute Assessment and Plan: The patient presents with fever and tachycardia. He had elevated WBC consistent with sepsis from septic arthritis of the right shoulder. He had fevers for about 24hours before the shoulder pain started. Lactic acid was normal. Blood pressures have been stable. BCx 05/21 growing Strept pneumoniae sensitive to ceftriaxone. Right shoulder synovial gram stain (05/21) positive for many WBCs and moderate GPC. Wound culture 05/21 also growing Strept pneumoniae sensitive to ceftriaxone. He was started on empiric ceftriaxone 2 mg Q 24 hours and vancomycin. Surface Echo showing EF 60-65% and mild MR but no vegetations. Follow up BCx (05/23) remain negative. WBC back up today to 17K. PharmD ID consulted. Follow up on repeat BCx. Monitor WBC and temp curve. Humerus MRI results reviewed. Repeat BCx will be 48hours this evening. Place PICC line in am if BCx remain negative for plan for IV abx at discharge. Monitor WBC (2) Septic arthritis of shoulder, right: Qualifiers: Septic arthritis organism: due to unspecified organism Qualified Code(s): M00.9 - Pyogenic arthritis, unspecified Code(s): M00.9 - Pyogenic arthritis, unspecified Status: Acute Assessment and Plan: The patient presented to the emergency department for evaluation of continued fever and right shoulder pain and found to have sepsis from right shoulder septic joint. Synovial fluid and blood cultures positive for Strept. MRI of the right shoulder 05/21 shows a full-thickness rotator cuff tear and findings which could be consistent with septic arthritis and associated septic bursitis. Patient taken to the OR 05/22 for septic arthritis. He was found to have inflammatory changes of the glenohumeral joint and biceps tendon, a degenerative type labral tear and rotator cuff supraspinatus tear without retraction.?He had inflammatory changes in subacromial space. Repeat humerus MRI results noted. No plans for repeat surgery but he will need IV abx at discharge. Appreciate ortho input. Continue wound care. (3) Hypokalemia: Code(s): E87.6 - Hypokalemia Status: Acute Assessment and Plan: Potassium was low on admission and replacement ordered. Potassium continues to run low. Not on diuretics. Mag okay. Replace and monitor. Check cortisol level and osmolality. (4) Essential hypertension: Code(s): I10 - Essential (primary) hypertension Status: Acute Assessment and Plan: Patient's blood pressure was reviewed on 05/26 Blood pressure elevated at times. Will continue to monitor (5) Coronary artery disease: Code(s): I25.10 - Atherosclerotic heart disease of [place] coronary artery without angina pectoris Status: Acute Assessment and Plan: No complaints of chest pain. Continue ASA and metoprolol (6) Elevated LFTs: Code(s): R79.89 - Other specified abnormal findings of blood chemistry Status: Acute Assessment and Plan: On 05/19, patient noted to have elevated LFTs with hyperbili. Acetaminophen level <10. Repeat levels on admission were much better and almost completely normal. Influenza, RSV and COVID negative on 05/21. Hepatitis panel negative. Lipitor on hold. RUQ US showing normal liver; GB has been removed. Normal ducts. Probably related to ths sepsis. LFTs were climbing since admission here but better today. Bili okay. Follow Plan Cold sores - Abreva DVT Prophylaxis - SCDs Code status - Full DS: Summary Hospital Course Hospital Course: Admitted for fever, septic arthritis w positive blood cultures. Patient will be dc on 28 days of abx. PICC line placed and abx have been set up. Medically stable and ready for dc. Time Spent with Patient Time
--- NOTE | 2023-05-27 13:20 | PM.PNORT ---
Progress Note: A&P Assessment and Plan (1) Septic arthritis of shoulder, right: Qualifiers: Septic arthritis organism: due to unspecified organism Qualified Code(s): M00.9 - Pyogenic arthritis, unspecified Code(s): M00.9 - Pyogenic arthritis, unspecified Status: Acute Assessment and Plan: POD #5: RT Shoulder Debridement Blood cultures and synovial fluid cultures= Streptococcus pneumoniae. Sensitivities available. Pharm ID consulted. Repeat blood cultures remain negative. Right arm erythema improved today. Overall swelling improved. Plan for central line today and home IV antibiotics. Dispo: Home with Home Infusion, IV antibiotics, and PICC line. Follow up with Orthopedics in 2 weeks. Subjective Subjective Date/Time Seen: 05/27/23 13:20 Post Op day: 5 Principal diagnosis: right shoulder sepsis Interval history: no interval changes. Exam Extrem: Right upper extremity: shoulder/upper arm abnormal ROM pain with active ROM in ABduction, in flexion and in internal rotation, pain with passive ROM with internal rotation and external rotation- and with range as follows ( Forward flexion 30?, abduction 30?, external rotation 20?) and other (Incisions clean and dry. Mild swelling. Erythema improved. less swelling bicep and upper arm), elbow/forearm normal ROM; no tenderness and no swelling, wrist normal ROM and radial pulse present; no tenderness and Extremity exam: right hand normal capillary refill, neurosensory exam normal radial nerve sensory function normal, ulnar nerve sensory function normal, median nerve sensory function normal and digital nerve sensory function normal, tendon exam normal of all digits, vascular exam radial pulse present and normal capillary refill, normal ROM of fingers and no swelling; abnormal to inspection Objective Data Vital Signs Vital Signs: Vital Signs - 24 hr 05/26/23 14:00 05/26/23 16:00 05/26/23 20:04 Temperature 98.1 F Pulse Rate 87 80 Respiratory Rate 20 Blood Pressure 129/67 Pulse Oximetry 97 96 Oxygen Delivery Room Air 05/26/23 20:09 05/26/23 21:45 05/26/23 20:00 Temperature 97.7 F Pulse Rate 78 68 Respiratory Rate 16 Blood Pressure 159/81 H Pulse Oximetry 97 Oxygen Delivery Room Air 05/26/23 20:00 05/27/23 00:00 05/27/23 04:00 Temperature Pulse Rate 98 81 81 Respiratory Rate Blood Pressure Pulse Oximetry Oxygen Delivery 05/27/23 06:00 05/27/23 07:57 05/27/23 08:40 Temperature 97.9 F Pulse Rate 94 94 Respiratory Rate 16 Blood Pressure 103/78 Pulse Oximetry 97 96 Oxygen Delivery Room Air 05/27/23 08:35 Temperature Pulse Rate Respiratory Rate Blood Pressure Pulse Oximetry Oxygen Delivery Room Air Intake/Output Intake/Output: Intake & Output 05/24/23 05/25/23 05/26/23 05/27/23 23:59 23:59 23:59 23:59 Intake Total 3210 3500 3740 1520 Balance 3210 3500 3740 1520 Meds/Results Medications: Active Medications Generic Name Dose Route Start Last Admin Trade Name Freq PRN Reason Stop Dose Admin Acetaminophen 650 mg 05/21/23 09:51 05/21/23 10:11 Acetaminophen 325 Mg Tablet PO 650 mg Q6H PRN Administration Mild Pain (1-3) or Fever Hydrocodone Bitart/Acetaminophen 1 tab 05/21/23 17:24 05/27/23 08:32 Hydrocodone/Acetaminophen (*Crx) 5-325 Mg Tablet PO 1 tab Q4H PRN Administration Pain Rated 4-6 Albuterol 2.5 mg 05/21/23 13:36 Albuterol Sulfate Neb 2.5 Mg/3 Ml Inh INHALATION Q6H PRN Wheezing Aspirin 81 mg 05/23/23 09:00 05/27/23 08:38 Aspirin 81 Mg Chewable Tablet PO 81 mg DAILY HEIDI Administration Atorvastatin Calcium 40 mg 05/21/23 21:00 05/23/23 20:30 Atorvastatin 40 Mg Tablet PO 40 mg HS HEIDI Administration Docosanol 1 applic 05/22/23 18:00 05/27/23 11:55 Docosanol 10% Cream 2 Gm TOPICAL 1 applic 5 TIMES DAILY HEIDI Administration Ceftriaxone Sodium 2 gm in 100 mls @
[2023-05-27] MEDS: cefTRIAXone 2 GM/NS 100 ML 2 GM/100 ML BAG IVPB (16:41)
[2023-05-27] MEDS: CENTRAL LINE FLUSH 10 ML IV PUSH (17:15)
[2023-05-28 20:25] LABS: Osmolality, Urine 175 mOsm/kg (50-1200)
[2023-05-29 07:39] LABS: Total Protein Synovial Fluid 3.2
== END 2023-05-27 17:50 | disposition home or self-care (01) | DRG 853 ==
LOC: ANHED 07:24 → ANHIMU 07:58 → ANH3MEDSUR 05-22 19:35
PROVIDERS: Internal Medicine; Nurse Practitioner Family; Orthopaedic Surgery; Physician Assistant; Admitting Provider Internal Medicine; Emergency Provider Emergency Medicine; PCP Family Medicine; Visit Provider Chiropractor
PROC: 0LN14ZZ Release Right Shoulder Tendon, Percutaneous Endoscopic Approach (ICD-10-PCS; CPT 29805; principal; 2023-05-22 10:00)
DX: A41.9 Sepsis, unspecified organism (principal); J15.4 Pneumonia due to other streptococci; M00.211 Other streptococcal arthritis, right shoulder; B95.4 Other streptococcus as the cause of diseases classified elsewhere; M75.101 Unspecified rotator cuff tear or rupture of right shoulder, not specified as traumatic; E87.6 Hypokalemia; E78.5 Hyperlipidemia, unspecified; G89.29 Other chronic pain; G47.33 Obstructive sleep apnea (adult) (pediatric); H91.90 Unspecified hearing loss, unspecified ear; I10 Essential (primary) hypertension; I25.10 Atherosclerotic heart disease of native coronary artery without angina pectoris; J45.909 Unspecified asthma, uncomplicated; M19.90 Unspecified osteoarthritis, unspecified site; M54.9 Dorsalgia, unspecified; R79.89 Other specified abnormal findings of blood chemistry; Z87.891 Personal history of nicotine dependence; Z20.822 Contact with and (suspected) exposure to COVID-19; Z79.82 Long term (current) use of aspirin; Z90.49 Acquired absence of other specified parts of digestive tract; Z95.1 Presence of aortocoronary bypass graft
CPT/HCPCS: 20610; 23650; 36415; 36569; 71045; 71046; 73030; 73060; 73220; 73223; 76705; 80048; 80053; 80074; 80202; 80307; 81001; 82533; 82550; 82570; 82945; 83605; 83690; 83735; 83930; 83935; 84132; 84133; 84157; 84443; 85025; 85027; 85610; 85730; 87040; 87070; 87075; 87081; 87147; 87181; 87186; 87205; 87637; 89051; 89060; 93005; 93306; 94640; 96360; 97161; 97165; 97530; 97535; 99285; A4565; A9270; A9577; C1751; J0690; J0696; J1200; J1885; J2250; J2270; J2370; J2405; J2704; J3010; J3370; J7030; J7120

== ENCOUNTER → 2023-07-08 15:22 | Outpatient (CLI) | payer OTHER, SELFPAY ==
--- NOTE | ~2023-07-08 | US_ITS ---
EXAMINATION: US venous doppler [facility] DATE: 07/08/2023 16:26 INDICATION: M79.661 - Pain in right lower leg. Bilateral swelling. TECHNIQUE: Grayscale images without and with compression and Doppler images of the bilateral lower ex tremity veins were obtained. COMPARISON: None FINDINGS: The right common femoral vein, profunda (deep) femoral vein, femoral vein, popliteal vein, peroneal v ein, posterior tibial veins, gastrocnemius vein, soleus vein, and greater saphenous vein are patent. The left common femoral vein, profunda (deep) femoral vein, femoral vein, popliteal vein, peroneal v ein, posterior tibial veins, gastrocnemius vein, soleus vein, and greater saphenous vein are patent. IMPRESSION: Patent bilateral lower extremity veins. No evidence of deep venous thrombosis. Reviewed, dictated and finalized at location K.
== END ==
PROVIDERS: PCP Family Medicine; Visit Provider Family Medicine
DX: M79.661 Pain in right lower leg (principal); M79.662 Pain in left lower leg; R60.0 Localized edema
CPT/HCPCS: 93970

== ENCOUNTER 2023-09-08 09:39 | Outpatient (CLI) | payer OTHER, SELFPAY ==
--- NOTE | 2023-09-14 11:57 | WPDHOMESLEEP ---
Sleep Study - Home Unattended Date of Study: 09/08/23 Ordering Provider: Cal Heredia MD Interpreting Provider: Mellisa Escamilla MD Home Sleep Study Type: Watch PAT Height: 1.75 m Weight: 103.419 kg Body Mass Index: 33.6 Neck Circumference (inches): 19 [place]: 21 Reason for Sleep Study Hypersomnolence Sleep History Raad Childers is a 62-year-old man with witnessed apneas and excessive daytime sleepiness. His medical comorbidities include hypertension, hyperlipidemia and coronary artery disease with 2 vessel CABG on 06/28/2020. He frequently awakens from sleep short of breath. He frequently wakes at night with heartburn, belching or couging.??He frequently snores, frequently snores loudly enough that others complain. He occasionally has trouble sleeping when he has a cold. He frequently wakes up gasping for breath during the night. H frequently has breathing problems at night. He rarely sweats excessively at night. He occasionally notices his heart pounding or beating irregularly during the night. He frequently falls asleep during the day. He frequently falls asleep involuntarily, occasionally falls asleep while driving. He never experiences loss of muscle tone with strong emotion. 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 He never feels paralyzed on waking or falling asleep. He occasionally experiences vivid dreams upon waking or falling asleep. He never feels afraid of going to sleep. He occasionally has nightmares. He rarely recalls his dreams. He rarely has thoughts racing through his mind. He never feels sad or depressed. He never feels anxiety. He occasionally notices parts of his body jerk. He occasional kicks during the night. He occasionally feels crawling or aching feelings in his legs. He frequently feels leg pain at night. He never grinds his teeth, never has morning jaw pain. He occasional feels bothered by pain during the day, occasional awakened by pain during the night. He frequently wakes up feeling stiff in the morning, frequently wakes feeling sore or achy in the morning. He never wakens with pain in his neck, spine, or joints. He has fatigue. Normal bedtime is Between 9:00 p.m. and 10:00 p.m. taking 1-2 minutes to fall asleep, waking multiple times during the night to get a drink of water or go to the bathroom. He wakes the morning at 5:00 a.m.. On weekends, schedule is slightly different, goes to bed at midnight, wakes at 6:00 a.m.. He estimates getting 5-6 hours of sleep normally. He takes naps on the weekends only. A short nap lasting 10 or 15 minutes may be refreshing. He is usually drowsy on waking. He feels better in the morning compared to other times of day. Habits:??Tobacco: never Caffeine:8 servings a day. Alcohol:none Recreational substances: none PMFSH Past Medical History Medical History (Updated 09/14/23 @ 12:21 by Mellisa Escamilla MD) Arthritis Asthma Asymmetrical hearing loss CAD (coronary artery disease) Chronic back pain Colon polyp Coronary artery disease Hyperlipidemia Hypertension Obstructive sleep apnea Pneumonia Surgical History Surgical History History of appendectomy History of cardiac catheterization (05/24/20) Multivessel coronary artery disease sent for revascularization. History of colonoscopy with polypectomy History of coronary artery bypass graft x 2 (06/28/20) GODWIN to LAD and SVG to OM per Dr. Cross at [facility]. History of laparoscopic cholecystectomy (12/25/04) History of left inguinal hernia repair (11/26/21) Robotic assisted with mesh. History of lumbar surgery History of sinus surgery (03/21/05) Family History Family History Mother Family history of diabetes mellitus in first degree relative Family history of coronary artery disease Hypertension Father
[2023-09-14 12:23] VITALS: BMI 33.6
== END 2023-09-09 12:50 | disposition home or self-care (01) ==
LOC: ANHCSM 09:40
PROVIDERS: PCP Family Medicine; Visit Provider Internal Medicine Cardiovascular Disease
DX: G47.33 Obstructive sleep apnea (adult) (pediatric) (principal)
CPT/HCPCS: 95800

== ENCOUNTER 2024-07-13 14:00 | Outpatient (CLI) | payer OTHER, SELFPAY ==
--- NOTE | ~2024-07-13 | CT_ITS ---
EXAMINATION: CT sinus wo con DATE: 07/13/2024 14:22 INDICATION: Chronic ethmoid sinusitis. Congestion. TECHNIQUE: Computed tomography (CT) of the paranasal sinuses was performed without intravenous contra st. Iterative reconstruction technique was employed. The dose-length product was 201.03 mGy-cm. COMPARISON: CT sinuses 01/24/2011 FINDINGS: There is extensive mucosal thickening in right frontal sinus and the right ethmoid sinuses. There is moderate mucosal thickening in the left ethmoid sinuses. There is extensive mucosal thicken ing in the sphenoid and right maxillary sinuses and mild mucosal thickening in the left maxillary sin us. There is sclerosis of many of the sinus cespedes, consistent with chronic sinusitis. There is rightw angela deviation of the nasal septum. There are patent bilateral secondary maxillary ostia. IMPRESSION: 1. Chronic sinusitis. 2. Rightward deviation of the nasal septum. Reviewed, dictated and finalized at location A.
== END 2024-07-13 14:01 | disposition home or self-care (01) ==
PROVIDERS: PCP Family Medicine; Visit Provider Otolaryngology
DX: J32.2 Chronic ethmoidal sinusitis (principal); J32.0 Chronic maxillary sinusitis; J34.2 Deviated nasal septum
CPT/HCPCS: 70486

== ENCOUNTER 2024-09-27 15:52 | Outpatient (CLI) | payer OTHER, SELFPAY ==
--- NOTE | ~2024-09-27 | XR_ITS ---
EXAMINATION: XR ankle LT 2V DATE: 09/27/2024 16:05 INDICATION: Left ankle pain. Fall. TECHNIQUE: 2 views of left ankle were obtained. COMPARISON: None. FINDINGS: Alignment is normal. No acute fracture. There is heterotopic ossification distal to lateral malleolus. There is mild midfoot osteoarthritis. There is an enthesophyte at plantar aspect of calca elzbieta tuberosity. IMPRESSION: 1. No acute fracture. Reviewed, dictated and finalized at location B. IMPRESSION: 1. No acute fracture.
== END 2024-09-27 15:53 | disposition home or self-care (01) ==
LOC: ANHIMG 15:53
PROVIDERS: PCP Family Medicine; Visit Provider Family Medicine
DX: M25.572 Pain in left ankle and joints of left foot (principal)
CPT/HCPCS: 73600

== ENCOUNTER 2025-01-17 15:19 | Outpatient (CLI) | payer OTHER, SELFPAY ==
--- NOTE | ~2025-01-17 | XR_ITS ---
EXAM: XR_[id number]_CR DATE: 01/17/2025 15:00 HISTORY: M54.12 - Radiculopathy, cervical region . COMPARISON: None available. FINDINGS: Craniocervical association and atlantoaxial joint are aligned. Mild degenerative change at the atlantodental interval. No prevertebral soft tissue swelling. 2 mm retrolisthesis at C5-6. 1 mm anterolisthesis at C4-5. Vertebral body heights are maintained. Moderate disc space narrowing and mar ginal osteophytosis at C5-6. The cervicothoracic junction is obscured in the lateral view. Multilevel mild and moderate degrees of facet hypertrophy and uncovertebral joint degenerative change. Partiall y visualized sternotomy wires. IMPRESSION: Minimal likely degenerative listheses at C4-5 and C5-6. Moderate degenerative disc diseas e at C5-6. Multilevel mild-moderate facet arthropathy. Reviewed, dictated and finalized at location K. RATION MANAGER IMPRESSION: Minimal likely degenerative listheses at C4-5 and C5-6. Moderate de generative disc disease at C5-6. Multilevel mild-moderate facet arthropathy.
--- NOTE | ~2025-01-17 | XR_ITS ---
EXAMINATION: XR lumbar spine 2-3V DATE: 01/17/2025 15:00 INDICATION: Radiculopathy. TECHNIQUE: 3 views of lumbar spine were obtained. COMPARISON: Lumbar spine radiographs 08/18/2016 FINDINGS: There is 2 mm anterolisthesis of L4 on L5. There is mild chronic anterior wedging of T11 an d T12 vertebral bodies. There is mildly decreased disc height at L4-L5 and severely decreased disc he ight at L5-S1. There is multilevel facet joint osteoarthritis, severe at L4-L5. IMPRESSION: 1. Severe lower lumbar spondylosis. Reviewed, dictated and finalized at location A. VISION HOST
--- OUTSIDE RECORDS SUMMARY | 2025-01-17 14:43 | XMS_ITS | Clinical Summary ---
Author Organization [facility] [place] [address] Address [address] [place] [address] Care Team Providers Care Chicken Catcher Name Role Phone Tim Amos MD Primary Care Provider Allergies Active Allergy Reactions Criticality Noted Date Comments Levofloxacin Other (See comments) Low 07/17/2021 Leg pain Medications multivitamin capsule Take 1 capsule by mouth daily as needed Active aspirin 81 mg enteric coated tablet Take 1 tablet (81 mg total) by mouth daily 30 tablet 11 0 Active traMADoL (ULTRAM) 50 mg tablet TAKE 1 TABLET BY MOUTH EVERY 4 HOURS NEEDED FOR PAIN 0 Active acetaminophen (TYLENOL) 325 mg tablet Take 2 tablets (650 mg total) by mouth every 6 (six) hours as needed for pain Active nitroglycerin (NITROSTAT) 0.4 mg SL tabletIndicatio ns:Coronary artery disease of solomon artery of solomon heart with stable angina pectoris (HCC) Place 1 tablet (0.4 mg total) under the tongue every 5 (five) minutes as needed for chest pain May repeat dose q 5 min, up to 3 doses total 90 tablet 2 Active lisinopriL (PRINIVIL,ZESTR IL) 20 mg tablet Take 1 tablet (20 mg total) by mouth daily 3 Active albuterol 2.5 mg /3 mL (0.083 %) nebulizer solution USE 1 AMPULE VIA NEBULIZER EVERY 4 HOURS NEEDED 3 Active Breo Ellipta 200-25 mcg/dose diskus inhaler INHALE 1 PUFF BY MOUTH ONCE DAILY- RINSE MOUTH AFTER USE 4 Active metoprolol tartrate (LOPRESSOR) 50 mg immediate release tablet TAKE 1 TABLET BY MOUTH TWICE A DAY 180 tablet 2 4 Active atorvastatin (LIPITOR) 40 mg tablet TAKE 1 TABLET BY MOUTH EVERY DAY AT NIGHT 90 tablet 2 4 Active Active Problems Problem Noted Date Diagnosed Date Essential hypertension 09/25/2020 PEDRO (obstructive sleep apnea) 05/21/2020 Hyperlipidemia LDL goal <70 05/21/2020 Family history of premature coronary artery dise ase 05/21/2020 Abnormal stress test 05/21/2020 Coronary artery disease of n ative heart with stable angina pectoris Resolved Problems Problem Noted Date Diagnosed Date Resolved Date Coronary artery disease invo lving solomon coronary artery of solomon heart without angina pectoris 06/20/2020 08/14/2020 Overview (06/20/2020): Added automatically from request for surgery [id number] Accelerating angina ([facility]) 05/21/2020 08/14/2020 Encounters Date Type Department Care Team Description 01/13/2025 9:45 AM AUTOMATIC SCREWMAKER Office Visit [facility] Sleep Medicine at [address] [place] [address] Estelita Oleary MD PEDRO (obstructive sleep apnea) (Primary Dx); Hypersomnia; Obesity, unspecified class, unspecified obesity type, unspecified whether serious comorbidity present 11/03/2024 Telephone [facility] [address] [place] [address] [address] [place] [id number] Estelita Oleary MD from Last 3 Months Surgical History Surgery Date Site/Laterality Comments APPENDECTOMY CHOLECYSTECTOMY LUMBAR DISC SURGERY pinched nerve KNEE SURGERY Medical History Medical History Date Comments Sleep apnea suspected Coronary artery disease Chest pain Hypertension Asthma Family History Medical History Relation Name Comments No Known Problems Brother Arthritis Father Gout Father Heart disease Father Heart failure Mother No Known Problems Sister 1 No Known Problems Sister 2 No Known Problems Sister 3 No Known Problems Sister 4 Relation Name Status Comments Brother Alive Father Alive Mother (Age 65) Sister 1 Alive Sister 2 Alive Sister 3 Alive Sister 4 Alive Social History Tobacco Use Types Packs/Day Years Used Date Smoking Tobacco: Never Smokeless Tobacco: Never Tobacco Cessation:Counseling Given: Not Answered Alcohol Use Standard Drinks/Week Comments Yes 2 (1 standard drink = 0.6 oz pur e alcohol) weekends only Sex and Gender Information Value Date Recorded Sex Assigned at Not on file Legal Sex Male 7:09 PM AUTOMATIC SCREWMAKER Gender Identity Male 01/23/2022 10:16 AM AUTOMATIC SCREWMAKER Sexual Orientation Not on file Obstetrics History Last Filed Vital Signs Vital Sign Reading Time Taken Comments Blood Pressure 136/83 01/13/2025 9:46 AM AUTOMATIC SCREWMAKER Pulse 82 01/13/2025 9:46 AM AUTOMATIC SCREWMAKER Temperature 36.7 C (98 F) 11/08/2020 2:00 PM AUTOMATIC SCREWMAKER Respiratory Rate 18 04/29/2024 11:37 AM CDT Oxygen Saturation 94% 01/13/2025 9:46 AM AUTOMATIC SCREWMAKER Inhaled Oxygen Concentration - - Weight 128.4 kg (283 lb) 01/13/2025 9:46 AM AUTOMATIC SCREWMAKER Height 175.3 cm (5' 9 ) 01/13/2025 9:46 AM AUTOMATIC SCREWMAKER Body Mass Index 41.79 01/13/2025 9:46 AM AUTOMATIC SCREWMAKER Plan of Treatment Health Maintenance Due Date Last Done Comments Colon Cancer Screening-Colonoscopy 1962 Depression Screening 1962 Hepatitis C Screening 1962 Prostate Cancer Screening-PSA 1962 DTaP/Tdap/Td Vaccine (1 - Tdap) 1973 Hepatitis B Screening 1980 Regular Well Visit/Exam 18-64 1980 Pneumococcal vaccine <65 (1 of 2 - PCV) 1981 Zoster Vaccine (1 of 2) 2012 Influenza Vaccine (#1) 2024 11/01/2016 Insurance AETNA SIG [id number] AETNA SIG [id number] [facility] CHOICE PLUS [facility] CHOICE PLUS [place] [phone] Advance Directives For more information, please contact: [phone] * Full Code (Latest Code Status on File) Date Activated Date Inactivated Comments 06/28/2020 12:46 PM 07/04/2020 7:02 PM Care Teams Chicken Catcher Relationship Specialty Start Date End Date Tim Amos MD [address] [facility] [address] [place] [address] PCP - General Family Medicine 05/15/20
--- OUTSIDE RECORDS SUMMARY | 2025-01-17 14:43 | XMS_ITS | Encounter Summary ---
Author Organization [facility] Care Team Providers Care Blacking Wheel Tender Name Role Phone Tim Amos MD Primary Care Provider Encounter Details Date Type Department Care Team (Latest Contact Info) Description 10/20/2016 Orders Only [facility] CLINCON[facility] ProviderJuanis MD [address] [place] [address] Social History Tobacco Use Types Packs/Day Years Used Date Smoking Tobacco: Never Assessed Sex and Gender Information Value Date Recorded Sex Assigned at Not on file Legal Sex Male 7:09 PM COASTAL/HARBOR DEFENSE OFFICER Gender Identity Male 01/23/2022 10:16 AM COASTAL/HARBOR DEFENSE OFFICER Sexual Orientation Not on file documented as of this encounter Plan of Treatment Not on file documented as of this encounter Procedures Procedure Name Priority Date/Time Associated Diagnosis Comments PROCEDURE - RESULT 10/20/2016 12 :00 AM COASTAL/HARBOR DEFENSE OFFICER PROCEDURE - RESULT 10/20/2016 12 :00 AM COASTAL/HARBOR DEFENSE OFFICER PROCEDURE - RESULT 10/20/2016 12 :00 AM COASTAL/HARBOR DEFENSE OFFICER documented in this encounter Results * PROCEDURE - RESULT (10/20/2016 12:00 AM COASTAL/HARBOR DEFENSE OFFICER) Narrative 10/20/2016 12:00 AM COASTAL/HARBOR DEFENSE OFFICER Ordered by an unspecified provider. Historical Provider Final Res ult * PROCEDURE - RESULT (10/20/2016 12:00 AM COASTAL/HARBOR DEFENSE OFFICER) Narrative 10/20/2016 12:00 AM COASTAL/HARBOR DEFENSE OFFICER Ordered by an unspecified provider. Historical Provider Final Res ult * PROCEDURE - RESULT (10/20/2016 12:00 AM COASTAL/HARBOR DEFENSE OFFICER) Narrative 10/20/2016 12:00 AM COASTAL/HARBOR DEFENSE OFFICER Ordered by an unspecified provider. us Historical Provider Final Res ult documented in this encounter Visit Diagnoses Not on filedocumented in this encounter Care Teams Blacking Wheel Tender Relationship Specialty Start Date End Date Tim Amos MD [address] [facility] [address] [place] [address] PCP - General Family Medicine 05/15/20 documented as of this encounter
--- OUTSIDE RECORDS SUMMARY | 2025-01-17 14:43 | XMS_ITS | Referral Summary ---
Author Organization [facility] [address] Address [address] [place] [address] Care Team Providers Care Cork Insulation Installer Name Role Phone Tim Amos MD Primary Care Provider Encounters Date Type Department Care Team Description 01/13/2025 9:45 AM MATTRESS FINISHER Office Visit [facility] Sleep Medicine at [address] [place] [address] Estelita Oleary MD PEDRO (obstructive sleep apnea) (Primary Dx); Hypersomnia; Obesity, unspecified class, unspecified obesity type, unspecified whether serious comorbidity present 11/03/2024 Telephone [facility] [address] [place] [address] [address] [place] [address] Estelita Oleary MD from Last 3 Months Allergies Active Allergy Reactions Criticality Noted Date [...] mg SL tabletIndicatio ns:Coronary artery disease of [place] artery of [place] heart with stable angina pectoris (HCC) Place [...] Resolved Date Coronary artery disease invo lving [place] coronary artery of [place] heart without angina pectoris 06/20/2020 08/14/2020 Overview (06/20/2020): Added automatically from request for surgery [id number] Accelerating angina ([facility]) 05/21/2020 08/14/2020 Social History Tobacco Use Types Packs/Day Years Used Date Smoking Tobacco: Never Smokeless Tobacco: Never Tobacco Cessation:Counseling Given: Not Answered Alcohol Use Standard Drinks/Week Comments Yes 2 (1 standard drink = 0.6 oz pur e alcohol) weekends only Sex and Gender Information Value Date Recorded Sex Assigned at Not on file Legal Sex Male 7:09 PM MATTRESS FINISHER Gender Identity Male 01/23/2022 10:16 AM MATTRESS FINISHER Sexual Orientation Not on file Last Filed Vital Signs Vital Sign Reading Time Taken Comments Blood Pressure 136/83 01/13/2025 9:46 AM MATTRESS FINISHER Pulse 82 01/13/2025 9:46 AM MATTRESS FINISHER Temperature 36.7 C (98 F) 11/08/2020 2:00 PM MATTRESS FINISHER Respiratory Rate 18 04/29/2024 11:37 AM CDT Oxygen Saturation 94% 01/13/2025 9:46 AM MATTRESS FINISHER Inhaled Oxygen Concentration - - Weight 128.4 kg (283 lb) 01/13/2025 9:46 AM MATTRESS FINISHER Height 175.3 cm (5' 9 ) 01/13/2025 9:46 AM MATTRESS FINISHER Body Mass Index 41.79 01/13/2025 9:46 AM MATTRESS FINISHER Plan of Treatment Not on file Insurance AETNA SIG [id number] AETNA SIG [id number] [facility] CHOICE PLUS Member Subscriber Plan / Payer (Ef fective 2022-Present) Name:Raad Childers Gab Relation to Subscriber:Self Name:Raad Childers Gab Payer ID:[id number] (NAIC) Type:[facility] HMO/PPO Address: [address] [place], [place] [id number] [facility] CHOICE PLUS Advance Directives For more information, please contact: [phone] * Full Code (Latest Code Status on File) Date Activated Date Inactivated Comments 06/28/2020 12:46 PM 07/04/2020 7:02 PM Care Teams Cork Insulation Installer Relationship Specialty Start Date End Date Tim Amos MD [address] [facility] 120 [place] [address] PCP - General Family Medicine 05/15/20
--- OUTSIDE RECORDS SUMMARY | 2025-01-17 14:43 | XMS_ITS | Encounter Summary ---
Author Organization [facility] Healthcare Address [address] [place] [address] Care Team Providers Care Renewable Energy Technician Name Role Phone Tim Amos MD Primary Care Provider Encounter Details Date Type Department Care Team (Late st Contact Info) Description 02/15/2024 Orders Only [facility] Health Information Management [address] [place] [address] Scanning, Provider Social History Tobacco Use Types Packs/Day Years Used Date Smoking Tobacco: Never Smokeless Tobacco: Never Alcohol Use Standard Drinks/Week Comments Yes 2 (1 standard drink = 0.6 oz pur e alcohol) weekends only Sex and Gender Information Value Date Recorded Sex Assigned at Not on file Legal Sex Male 7:09 PM SYNTHETIC RESIN OPERATOR Gender Identity Male 01/23/2022 10:16 AM SYNTHETIC RESIN OPERATOR Sexual Orientation Not on file documented as of this encounter Plan of Treatment Not on file documented as of this encounter Procedures Procedure Name Priority Date/Time Associated Diagnosis Comments SLEEP LAB/STUDY - RESULT 02/15/2024 documented in this encounter Results * SLEEP LAB/STUDY - RESULT (02/15/2024) us Provider Scanning Final Result documented in this encounter Visit Diagnoses Not on filedocumented in this encounter Care Teams Renewable Energy Technician Relationship Specialty Start Date End Date Tim Amos MD [address] [place] [place] [address] PCP - General Family Medicine 05/15/20 documented as of this encounter
--- OUTSIDE RECORDS SUMMARY | 2025-01-17 14:43 | XMS_ITS | Encounter Summary ---
Author Organization [facility] Care Team Providers Care Precision Thread Grinder Operator Name Role Phone Tim Amos MD Primary Care Provider Encounter Details Date Type Department Care Team (Latest Contact Info) Description 10/31/2016 Orders Only [facility] CLINCONV ProviderJuanis MD [address] [place] [address] Social History Tobacco Use Types Packs/Day Years Used Date Smoking Tobacco: Never Assessed Sex and Gender Information Value Date Recorded Sex Assigned at Not on file Legal Sex Male 7:09 PM PARTS CLASSIFIER Gender Identity Male 01/23/2022 10:16 AM PARTS CLASSIFIER Sexual Orientation Not on file documented as of this encounter Plan of Treatment Not on file documented as of this encounter Procedures Procedure Name Priority Date/Time Associated Diagnosis Comments PROCEDURE - RESULT 10/31/2016 12 :00 AM PARTS CLASSIFIER PROCEDURE - RESULT 10/22/2016 12 :00 AM PARTS CLASSIFIER documented in this encounter Results * PROCEDURE - RESULT (10/31/2016 12:00 AM PARTS CLASSIFIER) Narrative 10/31/2016 12:00 AM PARTS CLASSIFIER Ordered by an unspecified provider. Historical Provider Final Res ult * PROCEDURE - RESULT (10/22/2016 12:00 AM PARTS CLASSIFIER) Narrative 10/22/2016 12:00 AM PARTS CLASSIFIER Ordered by an unspecified provider. Historical Provider Final Res ult documented in this encounter Visit Diagnoses Not on filedocumented in this encounter Care Teams Precision Thread Grinder Operator Relationship Specialty Start Date End Date Tim Amos MD [address] [facility] 120 [place] [address] PCP - General Family Medicine 05/15/20 documented as of this encounter
--- OUTSIDE RECORDS SUMMARY | 2025-01-17 15:21 | XMS_ITS | Encounter Summary ---
Author Organization [facility] Care Team Providers Care Embalmer Assistant Name Role Phone Tim Amos MD Primary Care Provider Encounter Details Date Type Department Care Team (Latest Contact Info) Description 10/31/2016 Orders Only [facility] CLINCON[facility] ProviderJuanis MD [address] [place] [address] Social History Tobacco Use Types Packs/Day Years Used Date Smoking Tobacco: Never Assessed Sex and Gender Information Value Date Recorded Sex Assigned at Not on file Legal Sex Male 7:09 PM MANAGER TALENT ACQUISITION Gender Identity Male 01/23/2022 10:16 AM MANAGER TALENT ACQUISITION Sexual Orientation Not on file documented as of this encounter Plan of Treatment Not on file documented as of this encounter Procedures Procedure Name Priority Date/Time Associated Diagnosis Comments PROCEDURE - RESULT 10/31/2016 12 :00 AM MANAGER TALENT ACQUISITION PROCEDURE - RESULT 10/22/2016 12 :00 AM MANAGER TALENT ACQUISITION documented in this encounter Results * PROCEDURE - RESULT (10/31/2016 12:00 AM MANAGER TALENT ACQUISITION) Narrative 10/31/2016 12:00 AM MANAGER TALENT ACQUISITION Ordered by an unspecified provider. Historical Provider Final Res ult * PROCEDURE - RESULT (10/22/2016 12:00 AM MANAGER TALENT ACQUISITION) Narrative 10/22/2016 12:00 AM MANAGER TALENT ACQUISITION Ordered by an unspecified provider. Historical Provider Final Res ult documented in this encounter Visit Diagnoses Not on filedocumented in this encounter Care Teams Embalmer Assistant Relationship Specialty Start Date End Date Tim Amos MD [address] [facility] 120 [place] [address] PCP - General Family Medicine 05/15/20 documented as of this encounter
--- OUTSIDE RECORDS SUMMARY | 2025-01-17 15:21 | XMS_ITS | Clinical Summary ---
Author Organization [facility] [address] Address [address] [place] [address] Care Team Providers Care Music Executive Name Role Phone Tim Amos MD Primary [...] mg SL tabletIndicatio ns:Coronary artery disease of [place] artery of [place] heart with stable angina pectoris (HCC) Place [...] Resolved Date Coronary artery disease invo lving [place] coronary artery of [place] heart without angina pectoris 06/20/2020 08/14/2020 Overview (06/20/2020): Added automatically from request for surgery [id number] Accelerating angina ([facility]) 05/21/2020 08/14/2020 Encounters Date Type Department Care Team Description 01/13/2025 9:45 AM NEW CAR DRIVER Office Visit [facility] Sleep Medicine at [address] [place] [address] Estelita Oleary MD PEDRO (obstructive sleep apnea) (Primary Dx); Hypersomnia; Obesity, unspecified class, unspecified obesity type, unspecified whether serious comorbidity present 11/03/2024 Telephone [facility] [address] [place] [address] [address] [place] [address] Estelita Oleary MD from Last 3 Months [...] on file Legal Sex Male 7:09 PM NEW CAR DRIVER Gender Identity Male 01/23/2022 10:16 AM NEW CAR DRIVER Sexual Orientation Not on file Obstetrics History Last Filed Vital Signs Vital Sign Reading Time Taken Comments Blood Pressure 136/83 01/13/2025 9:46 AM NEW CAR DRIVER Pulse 82 01/13/2025 9:46 AM NEW CAR DRIVER Temperature 36.7 C (98 F) 11/08/2020 2:00 PM NEW CAR DRIVER Respiratory Rate 18 04/29/2024 11:37 AM CDT Oxygen Saturation 94% 01/13/2025 9:46 AM NEW CAR DRIVER Inhaled Oxygen Concentration - - Weight 128.4 kg (283 lb) 01/13/2025 9:46 AM NEW CAR DRIVER Height 175.3 cm (5' 9 ) 01/13/2025 9:46 AM NEW CAR DRIVER Body Mass Index 41.79 01/13/2025 9:46 AM NEW CAR DRIVER Plan of Treatment Health Maintenance Due Date Last Done Comments Colon Cancer Screening-Colonoscopy 1962 Depression Screening 1962 Hepatitis C Screening 1962 Prostate Cancer Screening-PSA 1962 DTaP/Tdap/Td Vaccine (1 - Tdap) 1973 Hepatitis B Screening 1980 Regular Well Visit/Exam 18-64 1980 Pneumococcal vaccine <65 (1 of 2 - PCV) 1981 Zoster Vaccine (1 of 2) 2012 Influenza Vaccine (#1) 2024 11/01/2016 Insurance AETNA SIG [id number] AETNA SIG [id number] [facility] CHOICE PLUS [facility] CHO[facility] PLUS [place] [id number] Advance Directives For more information, please contact: [phone] * Full Code (Latest Code Status on File) Date Activated Date Inactivated Comments 06/28/2020 12:46 PM 07/04/2020 7:02 PM Care Teams Music Executive Relationship Specialty Start Date End Date Tim Amos MD [address] [facility] 120 [place] [address] PCP - General Family Medicine 05/15/20
--- OUTSIDE RECORDS SUMMARY | 2025-01-17 15:21 | XMS_ITS | Encounter Summary ---
Author Organization [facility] Healthcare Address [address] [place] [address] Care Team Providers Care Spout Positioner Name Role Phone Tim Amos MD Primary Care Provider Encounter Details Date Type Department Care Team (Late st Contact Info) Description 02/15/2024 Orders Only [facility] Health Information Management [address] [place] [id number] Scanning, Provider Social History Tobacco Use Types Packs/Day Years Used Date Smoking Tobacco: Never Smokeless Tobacco: Never Alcohol Use Standard Drinks/Week Comments Yes 2 (1 standard drink = 0.6 oz pur e alcohol) weekends only Sex and Gender Information Value Date Recorded Sex Assigned at Not on file Legal Sex Male 7:09 PM HYDROELECTRIC MECHANIC Gender Identity Male 01/23/2022 10:16 AM HYDROELECTRIC MECHANIC Sexual Orientation Not on file documented as [...] on filedocumented in this encounter Care Teams Spout Positioner Relationship Specialty Start Date End Date Tim Amos MD [address] [place] [address] PCP - General Family Medicine 05/15/20 documented as of this encounter
--- OUTSIDE RECORDS SUMMARY | 2025-01-17 15:21 | XMS_ITS | Encounter Summary ---
Author Organization [facility] Care Team Providers Care Acid Changer Name Role Phone Tim Amos MD Primary Care Provider Encounter Details Date Type Department Care Team (Latest Contact Info) Description 10/20/2016 Orders Only [facility] CLINCONV ProviderJuanis MD [address] [place] [address] Social History Tobacco Use Types Packs/Day Years Used Date Smoking Tobacco: Never Assessed Sex and Gender Information Value Date Recorded Sex Assigned at Not on file Legal Sex Male 7:09 PM CLINIC RECEPTIONIST Gender Identity Male 01/23/2022 10:16 AM CLINIC RECEPTIONIST Sexual Orientation Not on file documented as of this encounter Plan of Treatment Not on file documented as of this encounter Procedures Procedure Name Priority Date/Time Associated Diagnosis Comments PROCEDURE - RESULT 10/20/2016 12 :00 AM CLINIC RECEPTIONIST PROCEDURE - RESULT 10/20/2016 12 :00 AM CLINIC RECEPTIONIST PROCEDURE - RESULT 10/20/2016 12 :00 AM CLINIC RECEPTIONIST documented in this encounter Results * PROCEDURE - RESULT (10/20/2016 12:00 AM CLINIC RECEPTIONIST) Narrative 10/20/2016 12:00 AM CLINIC RECEPTIONIST Ordered by an unspecified provider. Historical Provider Final Res ult * PROCEDURE - RESULT (10/20/2016 12:00 AM CLINIC RECEPTIONIST) Narrative 10/20/2016 12:00 AM CLINIC RECEPTIONIST Ordered by an unspecified provider. Historical Provider Final Res ult * PROCEDURE - RESULT (10/20/2016 12:00 AM CLINIC RECEPTIONIST) Narrative 10/20/2016 12:00 AM CLINIC RECEPTIONIST Ordered by an unspecified provider. us Historical Provider Final Res ult documented in this encounter Visit Diagnoses Not on filedocumented in this encounter Care Teams Acid Changer Relationship Specialty Start Date End Date Tim Amos MD [address] [facility] [address] [place] [address] PCP - General Family Medicine 05/15/20 documented as of this encounter
--- OUTSIDE RECORDS SUMMARY | 2025-01-17 15:21 | XMS_ITS | Referral Summary ---
Author Organization [facility] [address] Address [address] [place] [address] Care Team Providers Care Preschool Substitute Teacher Name Role Phone Tim Amos MD Primary Care Provider Encounters Date Type Department Care Team Description 01/13/2025 9:45 AM AD TERMINAL MAKEUP OPERATOR Office Visit [facility] Sleep Medicine at [address] [place] [address] Estelita Oleary MD PEDRO (obstructive sleep apnea) (Primary Dx); Hypersomnia; Obesity, unspecified class, unspecified obesity type, unspecified whether serious comorbidity present 11/03/2024 Telephone [facility] [address] [place] [address] [address] [place] [address] Estelita Oleary MD from Last [...] mg SL tabletIndicatio ns:Coronary artery disease of [place] artery of [place] heart with stable angina pectoris (HCC) Place [...] Resolved Date Coronary artery disease invo lving [place] coronary artery of [place] heart without angina pectoris 06/20/2020 08/14/2020 Overview (06/20/2020): Added automatically from request for surgery [id number] Accelerating angina ([facility]) 05/21/2020 08/14/2020 Social History Tobacco Use Types Packs/Day Years Used Date Smoking Tobacco: Never Smokeless Tobacco: Never Tobacco Cessation:Counseling Given: Not Answered Alcohol Use Standard Drinks/Week Comments Yes 2 (1 standard drink = 0.6 oz pur e alcohol) weekends only Sex and Gender Information Value Date Recorded Sex Assigned at Not on file Legal Sex Male 7:09 PM AD TERMINAL MAKEUP OPERATOR Gender Identity Male 01/23/2022 10:16 AM AD TERMINAL MAKEUP OPERATOR Sexual Orientation Not on file Last Filed Vital Signs Vital Sign Reading Time Taken Comments Blood Pressure 136/83 01/13/2025 9:46 AM AD TERMINAL MAKEUP OPERATOR Pulse 82 01/13/2025 9:46 AM AD TERMINAL MAKEUP OPERATOR Temperature 36.7 C (98 F) 11/08/2020 2:00 PM AD TERMINAL MAKEUP OPERATOR Respiratory Rate 18 04/29/2024 11:37 AM CDT Oxygen Saturation 94% 01/13/2025 9:46 AM AD TERMINAL MAKEUP OPERATOR Inhaled Oxygen Concentration - - Weight 128.4 kg (283 lb) 01/13/2025 9:46 AM AD TERMINAL MAKEUP OPERATOR Height 175.3 cm (5' 9 ) 01/13/2025 9:46 AM AD TERMINAL MAKEUP OPERATOR Body Mass Index 41.79 01/13/2025 9:46 AM AD TERMINAL MAKEUP OPERATOR Plan of Treatment Not on file Insurance AETNA SIG [id number] AETNA SIG [id number] [facility] CHOICE PLUS [facility] CHOICE PLUS Advance Directives For more information, please contact: [phone] * Full Code (Latest Code Status on File) Date Activated Date Inactivated Comments 06/28/2020 12:46 PM 07/04/2020 7:02 PM Care Teams Preschool Substitute Teacher Relationship Specialty Start Date End Date Tim Amos MD [address] [facility] [address] [place] [address] PCP - General Family Medicine 05/15/20
[2025-01-17 15:35] LABS: Basophils Absolute Auto 0.1 K/mm3 (0.0-0.1); Basophils Percent Auto 0.7 % (0.2-1.2); Eosinophils Absolute Auto 0.3 K/mm3 (0-0.3); Eosinophils Percent Auto 1.4 % (0-4.4); Hematocrit 42.6 % (42.0-52.0); Immature Granulocyte Absolute 0.06 K/mm3 (0.00-0.031); Immature Granulocyte Percent A 0.3 % (0-0.5); Lymphocytes Absolute Auto 2.24 K/mm3 (0.9-3.2); Lymphocytes Percent Auto 12.7 % (18.3-44.2); Mean Corpuscular HGB Conc 32.9 g/dl (32-36); Mean Corpuscular Hemoglobin 28.9 pg (26-34); Mean Platelet Volume 9.7 fl (7.4-10.4); Monocytes Absolute Auto 1.1 K/mm3 (0.1-0.6); Monocytes Percent Auto 6.1 % (2.6-8.5); Neutrophils Absolute Auto 13.8 K/mm3 (1.3-6.7); Neutrophils Percent Auto 78.8 % (45.5-73.1); Platelet Count Result 239 k/mm3 (150-375); Red Blood Count 4.84 M/mm3 (4.6-6.20); White Blood Count 17.6 K/mm3 (4.5-10.0)
[2025-01-17 15:49] LABS: Alanine Aminotransferase 21 U/L (6-50); Albumin Level 4.2 g/dL (3.5-5.1); Alkaline Phosphatase 76 U/L (38-126); Anion Gap 11 mmol/L (4-12); Aspartate Amino Transferase 17 U/L (17-59); Bilirubin,Total 0.6 mg/dL (0.2-1.3); Blood Urea Nitrogen 12 mg/dL (9-20); Carbon Dioxide 24 mmol/L (22-30); Chloride 106 mmol/L (98-107); Estimated Glomerular Filt Rate > 60; Glucose 101 mg/dL (65-110); Potassium 3.9 mmol/L (3.4-5.0); Sodium 141 mmol/L (137-145)
[2025-01-17 16:18] LABS: Hemoglobin A1C 5.5 % (<5.7)
== END 2025-01-17 15:20 | disposition home or self-care (01) ==
PROVIDERS: PCP Family Medicine; Visit Provider Family Medicine
DX: I10 Essential (primary) hypertension (principal); R73.02 Impaired glucose tolerance (oral); D72.829 Elevated white blood cell count, unspecified; M47.26 Other spondylosis with radiculopathy, lumbar region; M50.30 Other cervical disc degeneration, unspecified cervical region
CPT/HCPCS: 36415; 72040; 72100; 80053; 83036; 85025

== ENCOUNTER 2025-02-14 07:20 | Outpatient (CLI) | payer OTHER, SELFPAY ==
--- NOTE | ~2025-02-14 | MR_ITS ---
MRI of the lumbar spine Clinical History: Radiculopathy Technique: Axial T2-weighted images, and sagittal T1-weighted, T2-weighted, and and T2 fat-sat images were acquired. Findings: No fracture or subluxation seen in the lumbar spine. Vertebral bodies maintain normal heigh t and alignment. No suspicious bone marrow signal abnormality. At L1-L2, there is no disc bulge or herniation. There is mild facet arthropathy. No central canal jessika nosis or neural foraminal narrowing. At L2-L3, there is mild disc desiccation. There is mild to moderate facet arthropathy. No bulge or he rniation. No spinal canal stenosis or neural foraminal narrowing. L3-L4, there is mild disc desiccation without bulge or herniation. There is moderate facet arthropath y. No central canal stenosis or neural foraminal narrowing. At L4-L5, there is mild disc bulge with advanced facet arthropathy. No central canal stenosis. Probab le minimal right neural foraminal narrowing. Left neural foramen preserved. At L5-S1, there is moderate degenerative distended with mild diffuse disc bulge and moderate facet ar thropathy. Prior probable left hemilaminectomy. No spinal canal stenosis. There is moderate right susu ral foraminal narrowing. Left neural foramen may be minimally narrowed. Paravertebral soft tissues are unremarkable. Impression: [id number] degenerative spondylosis, as above. Reviewed, dictated and finalized at [facility]. Impression: [id number] degenerative spondylosis, as above.
== END 2025-02-14 07:21 | disposition home or self-care (01) ==
PROVIDERS: PCP Family Medicine; Visit Provider Family Medicine
DX: M47.26 Other spondylosis with radiculopathy, lumbar region (principal)
CPT/HCPCS: 72148